=== PATIENT | male | born 1965 | race Caucasian/White ===

== ENCOUNTER 2018-03-01 12:42 | Emergency (ER) | payer MEDICAID ==
[~2018-03-01] VITALS: Ht 591.1 cm; Wt 84.0 kg
[~2018-03-01 12:42] MED LIST: AMIO200T57 PO; LABE100T PO; NICO-687 TD; NO HOME MEDS
[2018-03-01 13:14] LABS: BASOPHILS # (AUTO) 0.1 X10'3 (0-0.2); BASOPHILS % (AUTO) 0.4 % (0-1); EOSINOPHILS # (AUTO) 0.4 X10'3 (0-0.9); EOSINOPHILS % (AUTO) 2.4 % (0-6); HEMATOCRIT 29.7 % (42.0-52.0); LYMPHOCYTES # (AUTO) 1.5 X10'3 (1.1-4.8); LYMPHOCYTES % (AUTO) 8.8 % (21-51); MEAN CORPUSCULAR HEMOGLOBIN 31.2 PG (27.0-31.0); MEAN CORPUSCULAR HGB CONC 33.7 % (33.0-36.5); MEAN CORPUSCULAR VOLUME 92.4 FL (78-98); MEAN PLATELET VOLUME 6.9 FL (7.4-10.4); MONOCYTES # (AUTO) 1.7 X10'3 (0-0.9); MONOCYTES % (AUTO) 9.6 % (2-12); NEUTROPHILS # (AUTO) 13.6 X10'3 (1.8-7.7); NEUTROPHILS % (AUTO) 78.8 % (42-75); PLATELET COUNT 278 X10'3 (140-440); RED BLOOD COUNT 3.22 X10'6 (4.70-6.10); RED CELL DISTRIBUTION WIDTH 16.1 % (11.5-14.5); WHITE BLOOD COUNT 17.3 X10'3 (4.5-11.0)
[2018-03-01] MEDS ORDERED: ipratropium/albuterol 3ml nebule NEB ONE (13:20)
[2018-03-01] MEDS ORDERED: predniSONE 20 mg tablet PO ONE (13:25)
[2018-03-01 13:26] LABS: INR 0.9 INR; PARTIAL THROMBOPLASTIN TIME 26 SECONDS (22-32)
[2018-03-01 13:33] LABS: ALANINE AMINOTRANSFERASE 153 U/L (12-78); ALBUMIN 2.5 G/DL (3.4-5.0); ALBUMIN/GLOBULIN RATIO 0.7 (1.1-1.5); ALKALINE PHOSPHATASE 89 IU/L (46-116); ANION GAP 5 (8-16); ASPARTATE AMINO TRANSFERASE 58 U/L (10-37); BILIRUBIN,TOTAL 0.3 MG/DL (0.1-1.0); BLOOD UREA NITROGEN 15 MG/DL (7-18); BUN/CREATININE RATIO 13.2 (5.4-32.0); CALCIUM 9.2 MG/DL (8.5-10.1); CHLORIDE 102 MMOL/L (99-107); CREATININE 1.14 MG/DL (0.60-1.10); GLUCOSE 113 MG/DL (70-104); POTASSIUM 4.1 MMOL/L (3.5-5.1); SODIUM 135 MMOL/L (135-145); TOTAL CARBON DIOXIDE 27.8 MMOL/L (24-32); eGFR 67 ML/MIN
[2018-03-01] MEDS ORDERED: ALBU8.5H8 IH (13:42)
[2018-03-01] MEDS ORDERED: PRED20TA PO (13:42)
[2018-03-01] MEDS ORDERED: DOXY100C43 PO (13:42)
[2018-03-01] MEDS ORDERED: LIDOcaine Viscous 15ml cup PO ONE (13:45)
[2018-03-01] MEDS ORDERED: mag hydrox/Alum hydrox/simeth 30ml oral suspension PO ONE (13:45)
[2018-03-01] MEDS ORDERED: magnesium hydroxide 30ml (MOM) UD suspension PO ONE (13:45)
[2018-03-01 14:00] VITALS: BP 126/80
== END 2018-03-01 14:02 | disposition home or self-care (01) ==
LOC: ER 12:43
DX: J44.1 Chronic obstructive pulmonary disease with (acute) exacerbation (principal); G89.29 Other chronic pain; I10 Essential (primary) hypertension; E78.00 Pure hypercholesterolemia, unspecified; I50.9 Heart failure, unspecified; Z79.899 Other long term (current) drug therapy
CPT/HCPCS: 36415; 71045; 80053; 83880; 84484; 85025; 85610; 85730; 93005; 94640; 94760; 99285; J7512

== ENCOUNTER 2018-08-23 06:50 | Inpatient (IN) | payer MEDICAID | END 2018-08-26 09:50 | disposition home or self-care (01) | LOC: ER 06:50 → ED HOLD 08:47 → PCU 3S 14:12 ==

== ENCOUNTER 2021-07-02 09:23 | Inpatient (IN) | payer MEDICAID ==
[~2021-07-02] VITALS: Ht 167.6 cm; Wt 91.0 kg
[~2021-07-02 09:23] MED LIST changes: -AMIO200T57 PO; -LABE100T PO; -NICO-687 TD
[2021-07-02] MEDS ORDERED: diltiazem 5mg/ml 5ml inj. IV ONE (09:45)
[2021-07-02] MEDS ORDERED: furosemide 10 MG/1 ML 10ml inj IV ONE (09:45)
[2021-07-02] MEDS ORDERED: nitroGLYCERIN-Tridil 50MG/D5W 250 ML IV PRN (09:45)
[2021-07-02] MEDS ORDERED: diltiazem-NS 100mg/100ml 100 ML IV ONE (09:45)
[2021-07-02] MEDS ORDERED: AZIT-31 PO (10:14)
[2021-07-02] MEDS ORDERED: amiodarone 150mg/dext, iso-os 100 ML IV ONE (10:55)
[2021-07-02] MEDS: amiodarone/D5 360MG/200ML BAG 200 ML IV SCH ×2 (11:11→16:59)
[2021-07-02 11:20] LABS: BASOPHILS # (AUTO) 0.1 X10'3 (0-0.2); BASOPHILS % (AUTO) 0.7 % (0-1); EOSINOPHILS # (AUTO) 0.2 X10'3 (0-0.9); EOSINOPHILS % (AUTO) 1.5 % (0-6); HEMOGLOBIN 13.3 g/dl (14.0-17.9); LYMPHOCYTES # (AUTO) 1.5 X10'3 (1.1-4.8); LYMPHOCYTES % (AUTO) 13.4 % (21-51); MEAN CORPUSCULAR HEMOGLOBIN 26.8 PG (27.0-31.0); MEAN CORPUSCULAR HGB CONC 32.4 g/dL (33.0-36.5); MEAN CORPUSCULAR VOLUME 82.7 FL (78-98); MEAN PLATELET VOLUME 8.1 FL (7.4-10.4); MONOCYTES # (AUTO) 0.9 X10'3 (0-0.9); MONOCYTES % (AUTO) 7.5 % (2-12); NEUTROPHILS # (AUTO) 8.7 X10'3 (1.8-7.7); NEUTROPHILS % (AUTO) 76.9 % (42-75); PLATELET COUNT 302 X10'3 (140-440); RED BLOOD COUNT 4.95 X10'6 (4.70-6.10); RED CELL DISTRIBUTION WIDTH 18.2 % (11.5-14.5); WHITE BLOOD COUNT 11.4 X10'3 (4.5-11.0)
[2021-07-02 11:33] LABS: ALANINE AMINOTRANSFERASE 30 U/L (12-78); ALBUMIN 3.6 G/DL (3.4-5.0); ALBUMIN/GLOBULIN RATIO 0.8 (1.1-1.5); ALKALINE PHOSPHATASE 120 IU/L (46-116); ANION GAP 10 (8-16); ASPARTATE AMINO TRANSFERASE 22 U/L (10-37); BILIRUBIN,TOTAL 0.4 MG/DL (0.1-1.0); BLOOD UREA NITROGEN 29 MG/DL (7-18); BUN/CREATININE RATIO 13.4 (5.4-32.0); CALCIUM 9.9 MG/DL (8.5-10.1); CHLORIDE 105 MMOL/L (99-107); CREATININE 2.16 MG/DL (0.60-1.10); GLUCOSE 114 MG/DL (70-104); POTASSIUM 5.8 MMOL/L (3.5-5.1); SODIUM 140 MMOL/L (135-145); TOTAL CARBON DIOXIDE 25.3 MMOL/L (24-32); TOTAL PROTEIN 8.2 G/DL (6.4-8.2); eGFR 32 ML/MIN
[2021-07-02] MEDS ORDERED: dextrose 50%-water 50ml dispensing syringe IV ONE (11:50)
[2021-07-02] MEDS ORDERED: SODIUM ZIRCONIUM CYCLOSILICATE 10 GM POWD.PACK PO STA (11:50)
[2021-07-02] MEDS ORDERED: insulin regular, human U-100 3ml vial - multi-dose IV ONE (11:50)
[2021-07-02] MEDS ORDERED: calcium chloride 100 MG/1 ML inj IV ONE (11:50)
[2021-07-02 12:10] LABS: ETHANOL < 0.010 GM/DL (0.0-0.010)
[2021-07-02] MEDS ORDERED: labetalol 20mg/4ml (5mg/ml) syringe IV ONE (12:25)
[2021-07-02] MEDS ORDERED: morphine 2 MG/ML inj. syringe IV PRN ×2 (12:25)
[2021-07-02] MEDS ORDERED: magnesium hydroxide 30ml (MOM) UD suspension PO PRN (12:25)
[2021-07-02] MEDS ORDERED: HYDROcodone/acetaminophen 5mg/325mg tablet PO PRN (12:25)
[2021-07-02] MEDS ORDERED: ondansetron/PF 4mg/2ml inj IV PRN (12:25)
[2021-07-02] MEDS ORDERED: acetaminophen 325mg tablet PO PRN ×2 (12:25)
[2021-07-02] MEDS ORDERED: mag hydrox/Alum hydrox/simeth 30ml oral suspension PO PRN (12:25)
[2021-07-02] MEDS ORDERED: AMLO-708 PO (13:31)
[2021-07-02] MEDS ORDERED: FURO20TA4 PO (13:31)
[2021-07-02] MEDS ORDERED: HYDR-4069 PO (13:31)
[2021-07-02] MEDS ORDERED: ATOR40TA72 PO (13:31)
[2021-07-02] MEDS ORDERED: ESCI20TA39 PO (13:31)
[2021-07-02] MEDS ORDERED: CARV6.253 PO (13:31)
[2021-07-02] MEDS ORDERED: LEVO75TA7 PO (13:31)
[2021-07-02 13:42] LABS: URINE AMPHETAMINE SCREEN POSITIVE (Neg); URINE BARBITUATE SCREEN NEGATIVE (Neg); URINE BENZODIAZEPINES SCREEN NEGATIVE (Neg); URINE CANNABINOID SCREEN NEGATIVE (Neg); URINE COCAINE SCREEN NEGATIVE (Neg); URINE METHADONE SCREEN NEGATIVE (Neg); URINE OPIATE SCREEN NEGATIVE (Neg); URINE PHENCYCLIDINE SCREEN NEGATIVE (Neg)
[2021-07-02] MEDS: diltiazem CD 120mg capsule (once-daily) PO SCH (13:44)
[2021-07-02] MEDS: metoprolol tartrate 1mg/ml inj IV SCH ×8 (14:05→15:35)
[2021-07-02 22:06] VITALS: BP 129/99
[2021-07-03] VITALS (7 sets, daily range): BP systolic 123–170; BP diastolic 87–110
[2021-07-03] MEDS: furosemide 40mg/4ml inj IV SCH ×3 (00:15→19:08)
[2021-07-03] MEDS: amiodarone/D5 360MG/200ML BAG 200 ML IV SCH ×2 (00:15→05:07)
[2021-07-03] MEDS: docusate sod 100mg capsule PO SCH ×3 (00:15→19:06)
--- NOTE | 2021-07-03 06:30 | NUR ---
Patient in room PCU 3023. I have received report from Magalys MCDERMOTT and had the opportunity to ask questions and assume patient care.
[2021-07-03] MEDS: diltiazem CD 120mg capsule (once-daily) PO SCH (07:50)
[2021-07-03 08:06] LABS: BASOPHILS # (AUTO) 0.1 X10'3 (0-0.2); BASOPHILS % (AUTO) 0.6 % (0-1); EOSINOPHILS # (AUTO) 0.1 X10'3 (0-0.9); EOSINOPHILS % (AUTO) 0.8 % (0-6); HEMATOCRIT 37.7 % (42.0-52.0); HEMOGLOBIN 12.2 g/dl (14.0-17.9); MEAN CORPUSCULAR HGB CONC 32.4 g/dL (33.0-36.5); MEAN CORPUSCULAR VOLUME 83.3 FL (78-98); MONOCYTES # (AUTO) 0.9 X10'3 (0-0.9); MONOCYTES % (AUTO) 8.7 % (2-12); NEUTROPHILS # (AUTO) 7.8 X10'3 (1.8-7.7); NEUTROPHILS % (AUTO) 71.9 % (42-75); PLATELET COUNT 273 X10'3 (140-440); RED BLOOD COUNT 4.52 X10'6 (4.70-6.10); RED CELL DISTRIBUTION WIDTH 18.3 % (11.5-14.5); WHITE BLOOD COUNT 10.9 X10'3 (4.5-11.0)
--- NOTE | 2021-07-03 08:31 | NUR ---
PAGER ID: [phone] MESSAGE: [id number] Dax Real. Can we change metoprolol from Q15H to PRN? Di u want to keep Amiodarone drip is 1mg/min, do you want it at 0.5mg/min? heart rate 110s, BP 131/105. PCU Crystal
--- NOTE | 2021-07-03 08:45 | NUR ---
Problems reprioritized. Patient report given, questions answered & plan of care reviewed with Laila MCDERMOTT.
--- NOTE | 2021-07-03 08:45 | NUR ---
Patient in room PCU 3023. I have received report from Ladonna MCDERMOTT and had the opportunity to ask questions and assume patient care.
[2021-07-03 08:51] LABS: ALBUMIN 3.2 G/DL (3.4-5.0); ANION GAP 13 (8-16); BLOOD UREA NITROGEN 36 MG/DL (7-18); BUN/CREATININE RATIO 12.1 (5.4-32.0); CALCIUM 9.8 MG/DL (8.5-10.1); CHLORIDE 101 MMOL/L (99-107); CREATININE 2.98 MG/DL (0.60-1.10); GLUCOSE 127 MG/DL (70-104); SODIUM 137 MMOL/L (135-145); TOTAL CARBON DIOXIDE 22.9 MMOL/L (24-32); eGFR 22 ML/MIN
[2021-07-03 08:58] LABS: POTASSIUM 4.7 MMOL/L (3.5-5.1)
[2021-07-03 10:50] LABS: ALANINE AMINOTRANSFERASE 25 U/L (12-78); ALBUMIN/GLOBULIN RATIO 0.7 (1.1-1.5); ALKALINE PHOSPHATASE 111 IU/L (46-116); ASPARTATE AMINO TRANSFERASE 23 U/L (10-37); BILIRUBIN,DIRECT < 0.1 MG/DL (0-0.3); BILIRUBIN,TOTAL 0.4 MG/DL (0.1-1.0); TOTAL PROTEIN 7.6 G/DL (6.4-8.2)
[2021-07-03] MEDS ORDERED: ondansetron 4mg rapidly disintigrating tab PO PRN (11:20)
--- NOTE | 2021-07-03 13:20 | NUR ---
Patient in room PCU 3023. I have received report from Lexis MCDERMOTT and had the opportunity to ask questions and assume patient care.
--- NOTE | 2021-07-03 14:03 | NUR ---
PAGER ID: [phone] MESSAGE: Dax Real #[phone]- FYI- Pt's ECCO resulted, 10/% EF dropped from 25% on 08/23. SOB, 6Ln/c can I get RT? Thank you Mary [facility] 1132
--- NOTE | 2021-07-03 14:14 | NUR ---
PAGER ID: [phone] MESSAGE: Dax Real #23A- BP143/105, HR87,90,99,105,92,96,100, RR20, 94% 6Ln/c, T97.6 oral. Mary B 4724 U
--- NOTE | 2021-07-03 18:46 | NUR ---
paged RT x2
--- NOTE | 2021-07-03 18:48 | NUR ---
Patient in room PCU 3023. I have received report from SHARRON Hernandez and had the opportunity to ask questions and assume patient care.
--- NOTE | 2021-07-03 18:49 | NUR ---
Problems reprioritized. Patient report given, questions answered & plan of care reviewed with Fadia MCDERMOTT.
--- NOTE | 2021-07-03 18:54 | NUR ---
RT IS BUSY AND CALLED TO SAY THEY WILL GET HERE WHEN EVER THEY CAN. THIS IS THE 3RD PAGE FOR RT TREATMENT FOR THIS PT. NOC NURSE AWARE.
[2021-07-03] MEDS: amiodarone 200mg tablet PO SCH (19:06)
[2021-07-03] MEDS: carvedilol 6.25mg tablet PO SCH (19:07)
[2021-07-03] MEDS: apixaban 5mg tablet PO SCH (19:07)
[2021-07-03] MEDS: albuterol 2.5 MG/3 ML nebule NEB PRN ×2 (19:23→22:45)
[2021-07-04] VITALS (7 sets, daily range): BP systolic 93–166; BP diastolic 60–105
[2021-07-04] MEDS: albuterol 2.5 MG/3 ML nebule NEB PRN (03:00)
--- NOTE | 2021-07-04 06:31 | NUR ---
Problems reprioritized. Patient report given, questions answered & plan of care reviewed with SHARRON HERMOSILLO.
[2021-07-04 06:38] LABS: BASOPHILS # (AUTO) 0.1 X10'3 (0-0.2); BASOPHILS % (AUTO) 0.7 % (0-1); EOSINOPHILS # (AUTO) 0.1 X10'3 (0-0.9); EOSINOPHILS % (AUTO) 1.3 % (0-6); HEMATOCRIT 36.6 % (42.0-52.0); LYMPHOCYTES # (AUTO) 1.1 X10'3 (1.1-4.8); LYMPHOCYTES % (AUTO) 12.6 % (21-51); MEAN CORPUSCULAR HGB CONC 32.8 g/dL (33.0-36.5); MEAN CORPUSCULAR VOLUME 82.4 FL (78-98); MEAN PLATELET VOLUME 8.6 FL (7.4-10.4); MONOCYTES # (AUTO) 0.7 X10'3 (0-0.9); MONOCYTES % (AUTO) 8.3 % (2-12); NEUTROPHILS # (AUTO) 6.7 X10'3 (1.8-7.7); NEUTROPHILS % (AUTO) 77.1 % (42-75); PLATELET COUNT 227 X10'3 (140-440); RED BLOOD COUNT 4.44 X10'6 (4.70-6.10); RED CELL DISTRIBUTION WIDTH 18.1 % (11.5-14.5); WHITE BLOOD COUNT 8.7 X10'3 (4.5-11.0)
[2021-07-04 06:52] LABS: ANION GAP 11 (8-16); BLOOD UREA NITROGEN 35 MG/DL (7-18); BUN/CREATININE RATIO 13.2 (5.4-32.0); CALCIUM 9.4 MG/DL (8.5-10.1); CHLORIDE 98 MMOL/L (99-107); CREATININE 2.65 MG/DL (0.60-1.10); GLUCOSE 127 MG/DL (70-104); POTASSIUM 3.4 MMOL/L (3.5-5.1); SODIUM 136 MMOL/L (135-145); TOTAL CARBON DIOXIDE 26.7 MMOL/L (24-32); eGFR 25 ML/MIN
[2021-07-04] MEDS ORDERED: lisinopril 5mg tablet PO SCH (08:00)
[2021-07-04] MEDS: docusate sod 100mg capsule PO SCH ×2 (08:00→20:00)
[2021-07-04] MEDS ORDERED: magnesium 4gm in 100ml NS 100 ML IV PRN (08:15)
[2021-07-04] MEDS ORDERED: potassium Cl 20 mEq SR tablet PO PRN (08:15)
[2021-07-04] MEDS ORDERED: magnesium Cl slow-release 64mg tablet PO PRN (08:15)
[2021-07-04] MEDS ORDERED: magnesium 2GM in 50ml NS 50 ML IV PRN (08:15)
[2021-07-04] MEDS ORDERED: potassium CL 10mEq/100ml bag 100 ML IV PRN (08:15)
[2021-07-04] MEDS: apixaban 5mg tablet PO SCH ×2 (08:45→19:46)
[2021-07-04] MEDS: amiodarone 200mg tablet PO SCH ×2 (08:45→19:46)
[2021-07-04] MEDS: diltiazem CD 120mg capsule (once-daily) PO SCH (08:46)
[2021-07-04] MEDS: spironolactone 25 MG tablet PO SCH (08:46)
[2021-07-04] MEDS: furosemide 40mg/4ml inj IV SCH ×2 (08:46→20:00)
[2021-07-04] MEDS: carvedilol 6.25mg tablet PO SCH ×2 (08:47→20:00)
[2021-07-04] MEDS: potassium Cl 20 mEq SR tablet PO PRN ×3 (08:47→16:18)
[2021-07-04] MEDS: lisinopril 5mg tablet PO SCH (08:48)
[2021-07-04 10:00] LABS: MAGNESIUM 1.9 MG/DL (1.5-2.4); POTASSIUM 3.4 MMOL/L (3.5-5.1)
--- NOTE | 2021-07-04 12:19 | NUR ---
Paged Dr. Oh regarding med PAGER ID: [phone] MESSAGE: [id number] Dax Real. Patient takes escitalopram 20mg daily at home. U Crystal
[2021-07-04] MEDS: ESCITALOPRAM OXALATE 5 MG TABLET PO SCH (16:18)
[2021-07-04] MEDS: atorvastatin 20mg tablet PO SCH (16:18)
--- NOTE | 2021-07-04 17:27 | NUR ---
Paged Dr. Oh regarding rhythm PAGER ID: [phone] MESSAGE: [id number] Dax Real. While asleep patient went into junctional rhythm for 10 seconds, had a 3 second pause, went back into sinus rhythm. Asymptomatic. PCU Crystal
--- NOTE | 2021-07-04 18:32 | NUR ---
Problems reprioritized. Patient report given, questions answered & plan of care reviewed with Fadia MCDERMOTT.
--- NOTE | 2021-07-04 18:40 | NUR ---
Patient in room PCU 3023. I have received report from SHARRON Dougherty and had the opportunity to ask questions and assume patient care.
[2021-07-04] MEDS: K and/or MAG REPLACEMENT MC SCH (20:00)
[2021-07-05] VITALS (7 sets, daily range): BP systolic 113–137; BP diastolic 70–87
--- NOTE | 2021-07-05 06:04 | NUR ---
Problems reprioritized. Patient report given, questions answered & plan of care reviewed with SHARRON Dougehrty.
--- NOTE | 2021-07-05 06:24 | NUR ---
Patient in room PCU 3023. I have received report from Fadia MCDERMOTT and had the opportunity to ask questions and assume patient care.
[2021-07-05 06:39] LABS: BASOPHILS % (AUTO) 0.5 % (0-1); EOSINOPHILS # (AUTO) 0.2 X10'3 (0-0.9); HEMATOCRIT 36.2 % (42.0-52.0); HEMOGLOBIN 11.7 g/dl (14.0-17.9); LYMPHOCYTES # (AUTO) 1.1 X10'3 (1.1-4.8); LYMPHOCYTES % (AUTO) 16.6 % (21-51); MEAN CORPUSCULAR HEMOGLOBIN 26.9 PG (27.0-31.0); MEAN CORPUSCULAR HGB CONC 32.3 g/dL (33.0-36.5); MEAN CORPUSCULAR VOLUME 83.3 FL (78-98); MEAN PLATELET VOLUME 8.6 FL (7.4-10.4); MONOCYTES # (AUTO) 0.4 X10'3 (0-0.9); MONOCYTES % (AUTO) 6.5 % (2-12); NEUTROPHILS # (AUTO) 4.9 X10'3 (1.8-7.7); NEUTROPHILS % (AUTO) 73.4 % (42-75); PLATELET COUNT 224 X10'3 (140-440); RED BLOOD COUNT 4.35 X10'6 (4.70-6.10); RED CELL DISTRIBUTION WIDTH 17.9 % (11.5-14.5); WHITE BLOOD COUNT 6.7 X10'3 (4.5-11.0)
[2021-07-05 06:55] LABS: ALBUMIN 2.5 G/DL (3.4-5.0); ANION GAP 11 (8-16); BLOOD UREA NITROGEN 46 MG/DL (7-18); BUN/CREATININE RATIO 12.9 (5.4-32.0); CALCIUM 8.9 MG/DL (8.5-10.1); CHLORIDE 100 MMOL/L (99-107); CREATININE 3.56 MG/DL (0.60-1.10); GLUCOSE 222 MG/DL (70-104); POTASSIUM 3.5 MMOL/L (3.5-5.1); SODIUM 136 MMOL/L (135-145); TOTAL CARBON DIOXIDE 24.6 MMOL/L (24-32); eGFR 18 ML/MIN
[2021-07-05] MEDS: carvedilol 6.25mg tablet PO SCH ×2 (08:00→19:43)
[2021-07-05] MEDS: diltiazem CD 120mg capsule (once-daily) PO SCH (08:00)
[2021-07-05] MEDS: K and/or MAG REPLACEMENT MC SCH ×2 (08:00→20:00)
[2021-07-05] MEDS: atorvastatin 20mg tablet PO SCH (08:03)
[2021-07-05] MEDS: docusate sod 100mg capsule PO SCH ×2 (08:03→20:00)
[2021-07-05] MEDS: apixaban 5mg tablet PO SCH ×2 (08:03→19:43)
[2021-07-05] MEDS: furosemide 40mg/4ml inj IV SCH ×2 (08:03→19:43)
[2021-07-05] MEDS: spironolactone 25 MG tablet PO SCH (08:04)
[2021-07-05] MEDS: amiodarone 200mg tablet PO SCH ×2 (08:04→19:43)
[2021-07-05] MEDS: lisinopril 5mg tablet PO SCH (08:05)
[2021-07-05] MEDS: levoTHYROXINE 75mcg tablet PO SCH (08:05)
[2021-07-05] MEDS: ESCITALOPRAM OXALATE 5 MG TABLET PO SCH (08:06)
[2021-07-05 15:27] LABS: CHOLESTEROL 195 MG/DL (0-200); HDL CHOLESTEROL 39 MG/DL (35-60); LDL CHOLESTEROL 121 MG/DL (50-100); TRIGLYCERIDES 151 MG/DL (20-135)
--- NOTE | 2021-07-05 18:14 | NUR ---
Problems reprioritized. Patient report given, questions answered & plan of care reviewed with Fadia MCDERMOTT.
--- NOTE | 2021-07-05 18:15 | NUR ---
Patient in room PCU 3023. I have received report from SHARRON Pineda and had the opportunity to ask questions and assume patient care.
[2021-07-06 02:00] VITALS: BP 127/89
[2021-07-06 06:00] VITALS: BP 139/94
[2021-07-06 06:09] LABS: BASOPHILS % (AUTO) 0.6 % (0-1); EOSINOPHILS # (AUTO) 0.2 X10'3 (0-0.9); EOSINOPHILS % (AUTO) 3.1 % (0-6); HEMATOCRIT 39.6 % (42.0-52.0); HEMOGLOBIN 12.7 g/dl (14.0-17.9); LYMPHOCYTES # (AUTO) 1.3 X10'3 (1.1-4.8); MEAN CORPUSCULAR HEMOGLOBIN 26.7 PG (27.0-31.0); MEAN CORPUSCULAR HGB CONC 32.2 g/dL (33.0-36.5); MEAN CORPUSCULAR VOLUME 83.1 FL (78-98); MEAN PLATELET VOLUME 8.5 FL (7.4-10.4); MONOCYTES # (AUTO) 0.9 X10'3 (0-0.9); MONOCYTES % (AUTO) 11.5 % (2-12); NEUTROPHILS # (AUTO) 4.9 X10'3 (1.8-7.7); NEUTROPHILS % (AUTO) 66.8 % (42-75); PLATELET COUNT 289 X10'3 (140-440); RED BLOOD COUNT 4.77 X10'6 (4.70-6.10); WHITE BLOOD COUNT 7.4 X10'3 (4.5-11.0)
[2021-07-06 06:30] LABS: ALBUMIN 2.7 G/DL (3.4-5.0); ANION GAP 7 (8-16); BLOOD UREA NITROGEN 42 MG/DL (7-18); CALCIUM 9.8 MG/DL (8.5-10.1); CHLORIDE 104 MMOL/L (99-107); CREATININE 3.01 MG/DL (0.60-1.10); GLUCOSE 113 MG/DL (70-104); POTASSIUM 5.1 MMOL/L (3.5-5.1); SODIUM 142 MMOL/L (135-145); TOTAL CARBON DIOXIDE 30.6 MMOL/L (24-32); eGFR 22 ML/MIN
--- NOTE | 2021-07-06 06:36 | NUR ---
Problems reprioritized. Patient report given, questions answered & plan of care reviewed with SHARRON Fragoso.
[2021-07-06] MEDS: furosemide 40mg/4ml inj IV SCH ×2 (08:01→20:59)
[2021-07-06] MEDS: carvedilol 6.25mg tablet PO SCH ×2 (08:02→20:59)
[2021-07-06] MEDS: spironolactone 25 MG tablet PO SCH (08:02)
[2021-07-06] MEDS: lisinopril 5mg tablet PO SCH (08:02)
[2021-07-06] MEDS: amiodarone 200mg tablet PO SCH ×2 (08:02→20:59)
[2021-07-06] MEDS: docusate sod 100mg capsule PO SCH ×2 (08:02→20:58)
[2021-07-06] MEDS: apixaban 5mg tablet PO SCH (08:02)
[2021-07-06] MEDS: ESCITALOPRAM OXALATE 5 MG TABLET PO SCH (08:03)
[2021-07-06] MEDS: atorvastatin 20mg tablet PO SCH (08:03)
[2021-07-06] MEDS: levoTHYROXINE 75mcg tablet PO SCH (08:03)
[2021-07-06] MEDS: K and/or MAG REPLACEMENT MC SCH ×2 (08:04→20:00)
[2021-07-06 11:00] VITALS: BP 117/81
[2021-07-06] MEDS ORDERED: vancomycin/NS 1 GM ADD-VANTAGE 250 ML X 1 DOSE IV ONE (16:00)
[2021-07-06] MEDS ORDERED: LIDOcaine 1% w/EPI 1:100,000 30ml vial (MDV) ONE (16:32)
[2021-07-06] MEDS ORDERED: fentaNYL/PF 50MCG/1 ML 2ML syringe ONE (16:32)
[2021-07-06] MEDS ORDERED: midazolam 1 mg/ML 2ml injection ONE (16:32)
[2021-07-06] MEDS ORDERED: iohexol 350 MG/ML 50ML vial IV ONE (16:32)
[2021-07-06] MEDS ORDERED: cefazolin/dext.iso 2gm/50ml 50 ML IV ONE (17:00)
[2021-07-06 19:00] VITALS: BP 114/74
[2021-07-06 22:00] VITALS: BP 133/79
[2021-07-07 02:00] VITALS: BP 139/94
[2021-07-07 06:00] VITALS: BP 151/91
[2021-07-07 06:06] LABS: ALBUMIN 2.7 G/DL (3.4-5.0); ANION GAP 4 (8-16); BLOOD UREA NITROGEN 35 MG/DL (7-18); CALCIUM 9.6 MG/DL (8.5-10.1); CHLORIDE 105 MMOL/L (99-107); CREATININE 2.69 MG/DL (0.60-1.10); GLUCOSE 102 MG/DL (70-104); POTASSIUM 4.8 MMOL/L (3.5-5.1); SODIUM 139 MMOL/L (135-145); TOTAL CARBON DIOXIDE 29.9 MMOL/L (24-32); eGFR 25 ML/MIN
[2021-07-07 06:08] LABS: BASOPHILS # (AUTO) 0.1 X10'3 (0-0.2); BASOPHILS % (AUTO) 0.7 % (0-1); EOSINOPHILS # (AUTO) 0.2 X10'3 (0-0.9); EOSINOPHILS % (AUTO) 2.6 % (0-6); HEMATOCRIT 37.9 % (42.0-52.0); HEMOGLOBIN 12.4 g/dl (14.0-17.9); LYMPHOCYTES # (AUTO) 1.6 X10'3 (1.1-4.8); LYMPHOCYTES % (AUTO) 19.5 % (21-51); MEAN CORPUSCULAR HEMOGLOBIN 27.2 PG (27.0-31.0); MEAN CORPUSCULAR HGB CONC 32.8 g/dL (33.0-36.5); MEAN CORPUSCULAR VOLUME 83.1 FL (78-98); MEAN PLATELET VOLUME 8.2 FL (7.4-10.4); MONOCYTES # (AUTO) 0.9 X10'3 (0-0.9); MONOCYTES % (AUTO) 11.2 % (2-12); NEUTROPHILS # (AUTO) 5.4 X10'3 (1.8-7.7); PLATELET COUNT 312 X10'3 (140-440); RED BLOOD COUNT 4.56 X10'6 (4.70-6.10); RED CELL DISTRIBUTION WIDTH 17.9 % (11.5-14.5); WHITE BLOOD COUNT 8.1 X10'3 (4.5-11.0)
--- NOTE | 2021-07-07 06:20 | NUR ---
Patient in room PCU 3023. I have received report from SHARRON Finnegan and had the opportunity to ask questions and assume patient care.
--- NOTE | 2021-07-07 06:20 | NUR ---
Patient in room PCU 3023. I have received report from Sivan MCDERMOTT and had the opportunity to ask questions and assume patient care.
[2021-07-07] MEDS: furosemide 40mg/4ml inj IV SCH (08:00)
[2021-07-07] MEDS: K and/or MAG REPLACEMENT MC SCH (08:00)
[2021-07-07] MEDS: docusate sod 100mg capsule PO SCH (08:00)
[2021-07-07] MEDS: carvedilol 6.25mg tablet PO SCH (08:00)
[2021-07-07] MEDS: amiodarone 200mg tablet PO SCH (08:48)
[2021-07-07] MEDS: ESCITALOPRAM OXALATE 5 MG TABLET PO SCH (08:48)
[2021-07-07] MEDS: levoTHYROXINE 75mcg tablet PO SCH (08:49)
[2021-07-07] MEDS: spironolactone 25 MG tablet PO SCH (08:49)
[2021-07-07] MEDS: atorvastatin 20mg tablet PO SCH (08:50)
[2021-07-07] MEDS ORDERED: FURO40TA4 PO (08:51)
[2021-07-07] MEDS: lisinopril 5mg tablet PO SCH (08:51)
[2021-07-07] MEDS ORDERED: AMIO200T67 PO (08:51)
[2021-07-07] MEDS ORDERED: LISI5TAB22 PO (08:51)
--- NOTE | 2021-07-07 10:18 | NUR ---
O2 Sat at rest on room air:_94__% If below 89%: Recovery O2 Sat at rest on ___LPM:___%:___% via (mask/nasal cannula, etc..) No further documentation is necessary. If O2 Sat did not drop below 89% on room air,ambulate patient on room air. O2 Sat while ambulating on room air:__96_% Recovery O2 Sat while ambulating on ___LPM:___% No further documentation is necessary. If patient does not drop below 89% while ambulating, he/she does not qualify for home O2.
[2021-07-07] MEDS ORDERED: APIX5TAB3 PO (10:48)
[2021-07-07] MEDS ORDERED: SPIR25TA PO (10:50)
[2021-07-07 11:00] VITALS: BP 142/92
--- NOTE | 2021-07-07 12:20 | NUR ---
Pt DC'd home with family. Pt alert and oriented and vitals WNL upon DC. Per Dr. Oh; Pt is stable for DC. IV removed, canula intact. Tele-box removed and returned to tele-tech. DC paperwork printed out and gone over with Pt. Allowed Pt to ask questions concerning DC and then answered them. New prescriptions called into [facility] in [place]. Pt educated on the need to constantly wear the life vest and to only take it off when they shower. Pt stated that he will wear the life vest until told not to by a provider. Pt has a follow up appt with Dr. Colon on Sunday07/12/21 at 1645. Pt's belongings gathered and sent with Pt. Pt's home medications retrieved from pharmacy and given back to Pt. Pt wheeled down to [facility] in wheel chair, where he left in private car with family for home.
--- NOTE | 2021-07-07 12:20 | NUR ---
[employer] documentation: I have reviewed and agree with all interventions, assessments performed and documented by Severino MCDERMOTT.
--- NOTE | 2021-07-07 12:22 | NUR ---
Initial: Pt admitted for acute hypoxemic respiratory failure secondary to decompensated heart failure per EMR. Pt currently on Heart Healthy diet w/ low PO intake, avg 37% x 11 meals which meets 57% of est energy needs and 63% of est protein needs. Pt w/ hx of throat surgery secondary to cancer though pt denies any chewing/swallowing difficulty. Pt open to trying ONS to help meet needs, RD recommends Ensure Enlive BID BD pending MD approval. LBM 07/04 receiving routine colace. Will continue to monitor. Recs: 1. Continue Heart Healthy diet as tolerated 2. Ensure Enlive BID BD; pending MD verification 3. Bowel care per rx 4. Weekly wts Addendum: 07/07/21 at [address] Amended: Links added.
[2021-07-07] MEDS ORDERED: lactose-reduced food (Ensure Enlive) - 237ml bottle PO SCH (17:30)
== END 2021-07-07 12:35 | disposition home or self-care (01) | DRG 201 ==
LOC: ER 09:24 → ED HOLD 12:26 → UNDOADMIN 12:26 → EDBEDREQ 20:15 → PCU 3S 22:10
PROVIDERS: ADMIT Internal Medicine; ATTEND Internal Medicine
DX: I48.0 Paroxysmal atrial fibrillation (principal); J96.01 Acute respiratory failure with hypoxia; I21.A1 Myocardial infarction type 2; I50.23 Acute on chronic systolic (congestive) heart failure; I42.9 Cardiomyopathy, unspecified; N17.9 Acute kidney failure, unspecified; I49.5 Sick sinus syndrome; F32.A Depression, unspecified; I13.0 Hypertensive heart and chronic kidney disease with heart failure and stage 1 through stage 4 chronic kidney disease, or unspecified chronic kidney disease; E03.9 Hypothyroidism, unspecified; E87.5 Hyperkalemia; E87.6 Hypokalemia; J44.9 Chronic obstructive pulmonary disease, unspecified; N18.30 Chronic kidney disease, stage 3 unspecified; N27.0 Small kidney, unilateral; E78.00 Pure hypercholesterolemia, unspecified; Z20.822 Contact with and (suspected) exposure to COVID-19; G89.29 Other chronic pain; F15.90 Other stimulant use, unspecified, uncomplicated; I34.0 Nonrheumatic mitral (valve) insufficiency; Z87.891 Personal history of nicotine dependence; Z79.899 Other long term (current) drug therapy; Z99.81 Dependence on supplemental oxygen; Z89.512 Acquired absence of left leg below knee; Z85.89 Personal history of malignant neoplasm of other organs and systems
CPT/HCPCS: 36415; 71045; 76770; 80048; 80053; 80061; 80076; 80202; 80305; 80320; 83735; 83880; 84132; 84439; 84443; 84484; 85025; 87070; 87081; 87635; 93005; 93306; 94640; 94667; 94760; 96365; 96367; 96368; 96375; 99285; G0378; J0282; J0690; J1815; J1940; J2250; J3010; J3370; J3490; Q9967

== ENCOUNTER 2021-10-14 04:58 | Inpatient (IN) | payer MEDICAID ==
[~2021-10-14] VITALS: Ht 172.7 cm; Wt 85.0 kg
[2021-10-14] VITALS (16 sets, daily range): BP systolic 121–166; BP diastolic 69–114
[~2021-10-14 04:58] MED LIST changes: +AMIO200T67 PO; +APIX5TAB3 PO; +ATOR40TA72 PO; +ESCI20TA39 PO; +LEVO75TA7 PO; +LISI5TAB22 PO; -NO HOME MEDS; +SPIR25TA PO
[2021-10-14] MEDS ORDERED: metoprolol tartrate 1mg/ml inj IV ONE (05:00)
[2021-10-14] MEDS ORDERED: amiodarone 150mg/dext, iso-os 100 ML IV ONE (05:15)
[2021-10-14 05:30] LABS: BASOPHILS # (AUTO) 0.1 X10'3 (0-0.2); BASOPHILS % (AUTO) 0.7 % (0-1); EOSINOPHILS # (AUTO) 0.2 X10'3 (0-0.9); EOSINOPHILS % (AUTO) 2.1 % (0-6); HEMATOCRIT 40.9 % (42.0-52.0); HEMOGLOBIN 13.6 g/dl (14.0-17.9); LYMPHOCYTES # (AUTO) 2.6 X10'3 (1.1-4.8); LYMPHOCYTES % (AUTO) 22.9 % (21-51); MEAN CORPUSCULAR HEMOGLOBIN 29.5 PG (27.0-31.0); MEAN CORPUSCULAR HGB CONC 33.3 g/dL (33.0-36.5); MEAN CORPUSCULAR VOLUME 88.5 FL (78-98); MONOCYTES # (AUTO) 0.9 X10'3 (0-0.9); MONOCYTES % (AUTO) 7.6 % (2-12); NEUTROPHILS # (AUTO) 7.7 X10'3 (1.8-7.7); NEUTROPHILS % (AUTO) 66.7 % (42-75); PLATELET COUNT 265 X10'3 (140-440); RED BLOOD COUNT 4.62 X10'6 (4.70-6.10); RED CELL DISTRIBUTION WIDTH 17.8 % (11.5-14.5); WHITE BLOOD COUNT 11.5 X10'3 (4.5-11.0)
[2021-10-14 05:40] LABS: APTT 24 SECONDS (22-32)
[2021-10-14] MEDS: nitroGLYCERIN-Tridil 50MG/D5W 250 ML IV PRN ×3 (05:44→07:49)
[2021-10-14 05:49] LABS: ALANINE AMINOTRANSFERASE 22 U/L (12-78); ALBUMIN 3.2 G/DL (3.4-5.0); ALBUMIN/GLOBULIN RATIO 0.7 (1.1-1.5); ALKALINE PHOSPHATASE 123 IU/L (46-116); ANION GAP 8 (8-16); ASPARTATE AMINO TRANSFERASE 25 U/L (10-37); BILIRUBIN,TOTAL 0.6 MG/DL (0.1-1.0); BLOOD UREA NITROGEN 26 MG/DL (7-18); BUN/CREATININE RATIO 12.6 (5.4-32.0); C-REACTIVE PROTEIN 0.88 MG/DL (0.0-0.5); CALCIUM 9.5 MG/DL (8.5-10.1); CHLORIDE 107 MMOL/L (99-107); CREATININE 2.07 MG/DL (0.60-1.10); GLUCOSE 160 MG/DL (70-104); MAGNESIUM 2.2 MG/DL (1.5-2.4); SODIUM 143 MMOL/L (135-145); TOTAL CARBON DIOXIDE 27.8 MMOL/L (24-32); TOTAL PROTEIN 7.5 G/DL (6.4-8.2); eGFR 33 ML/MIN
[2021-10-14 06:02] LABS: POTASSIUM 4.5 MMOL/L (3.5-5.1)
[2021-10-14 06:03] LABS: ETHANOL < 0.010 GM/DL (0.0-0.010)
[2021-10-14] MEDS ORDERED: heparin 25,000 UNIT/250ml bag 250 ML IV SCH (06:20)
[2021-10-14] MEDS ORDERED: heparin 10,000 units/1 ML INJ IV ONE ×2 (06:20→06:25)
[2021-10-14] MEDS ORDERED: aspirin 81mg tab.chew PO ONE (06:20)
[2021-10-14] MEDS ORDERED: iohexol 350MG/ML 100ml bottle IV ONE (06:29)
--- NOTE | 2021-10-14 06:35 | NUR ---
Report given to Yu
--- NOTE | 2021-10-14 07:13 | NUR ---
NITRO INCREASED TO 20MCG/MIN,DR GUPTA AT BEDSIDE.BP STILL ELEVATED.180/128.NO CP.
[2021-10-14] MEDS ORDERED: lisinopril 10 MG tablet PO ONE (07:15)
--- NOTE | 2021-10-14 07:51 | NUR ---
NITRO DRIP INCREASED TO 25MCG/MIN.
[2021-10-14 07:54] LABS: URINE AMPHETAMINE SCREEN POSITIVE (Neg); URINE BARBITUATE SCREEN NEGATIVE (Neg); URINE BENZODIAZEPINES SCREEN NEGATIVE (Neg); URINE CANNABINOID SCREEN POSITIVE (Neg); URINE COCAINE SCREEN NEGATIVE (Neg); URINE METHADONE SCREEN NEGATIVE (Neg); URINE OPIATE SCREEN NEGATIVE (Neg); URINE PHENCYCLIDINE SCREEN NEGATIVE (Neg)
[2021-10-14 07:57] LABS: CLARITY,URINE CLEAR (Clear); COLOR,URINE YELLOW (Yellow); GLUCOSE, URINE NEGATIVE (Neg); KETONES,URINE NEGATIVE (Neg); LEUKOCYTE ESTERASE ,URINE NEGATIVE (Neg); NITRITES, URINE NEGATIVE (Neg); OCCULT BLOOD,URINE TRACE-INTACT (Neg); PROTEIN,URINE >=300 mg/dl (Neg); UA COLLECTION TYPE CLN CATCH MIDSTREAM; UROBILINOGEN,URINE 0.2 E.U/dL (0.2-1.0)
[2021-10-14 08:03] LABS: BACTERIA,URINE FEW /HPF (Neg); MUCUS STRANDS FEW /LPF (Neg); RBC,URINE 0-2 /HPF (0-2); SQUAMOUS EPITHELIAL CELL,UR FEW /LPF (FEW)
[2021-10-14 08:04] LABS: COARSE GRANULAR CAST 0-3 /LPF (NEGATIVE); FINE GRANULAR CAST 0-3 /LPF (NEGATIVE)
--- NOTE | 2021-10-14 08:09 | NUR ---
Nitro drip increased to 30mcg/min. VS 185/130, HR 71, 99%. No chest pain.
[2021-10-14] MEDS: niCARDipine-NS 40mg/200ml IVPB IV SCH ×2 (11:20→19:20)
[2021-10-14] MEDS ORDERED: heparin, porcine 5000 units/ml vial SQ SCH (12:00)
[2021-10-14] MEDS ORDERED: APIX5TAB3 PO (13:00)
[2021-10-14] MEDS ORDERED: LISI20TA28 PO (13:00)
[2021-10-14] MEDS ORDERED: SPIR25TA5 PO (13:00)
[2021-10-14] MEDS ORDERED: ESCI20TA39 PO (13:00)
[2021-10-14] MEDS ORDERED: AMIO200T27 PO (13:00)
[2021-10-14] MEDS ORDERED: ATOR40TA71 PO (13:00)
[2021-10-14] MEDS ORDERED: LEVO75TA7 PO (13:00)
[2021-10-14 14:26] LABS: ALANINE AMINOTRANSFERASE 19 U/L (12-78); ALBUMIN/GLOBULIN RATIO 0.8 (1.1-1.5); ALKALINE PHOSPHATASE 112 IU/L (46-116); ASPARTATE AMINO TRANSFERASE 17 U/L (10-37); BILIRUBIN,DIRECT 0.1 MG/DL (0-0.3); BILIRUBIN,TOTAL 0.5 MG/DL (0.1-1.0); TOTAL PROTEIN 6.8 G/DL (6.4-8.2)
[2021-10-14] MEDS: lisinopril 20mg tablet PO SCH (15:09)
[2021-10-14] MEDS: ESCITALOPRAM OXALATE 5 MG TABLET PO SCH (15:09)
[2021-10-14] MEDS: spironolactone 25 MG tablet PO SCH (15:10)
[2021-10-14] MEDS: amiodarone 200mg tablet PO SCH ×2 (15:11→19:02)
[2021-10-14] MEDS: levoTHYROXINE 75mcg tablet PO SCH (15:11)
[2021-10-14] MEDS: atorvastatin 20mg tablet PO SCH (15:12)
[2021-10-14] MEDS: apixaban 5mg tablet PO SCH ×2 (15:13→19:03)
[2021-10-14] MEDS ORDERED: morphine 2 MG/ML inj. syringe IV PRN ×2 (17:30→18:05)
[2021-10-14] MEDS ORDERED: acetaminophen 325mg tablet PO PRN ×3 (17:30→18:05)
[2021-10-14] MEDS: hydrALAZINE 20mg/ml inj. IV PRN (18:03)
[2021-10-14] MEDS ORDERED: magnesium hydroxide 30ml (MOM) UD suspension PO PRN (18:05)
[2021-10-14] MEDS ORDERED: morphine 4 MG/ML inj SYRINge IV PRN (18:05)
[2021-10-14] MEDS ORDERED: potassium Cl 20 mEq SR tablet PO PRN ×2 (18:05)
--- NOTE | 2021-10-14 21:23 | NUR ---
The patients daughter Kevyn called earlier and asked group underwriter to deliver a message, message delivered at this time and the patient said he would call her. Will continue to monitor the patient. The patient turns himself while in bed noted and encouraged.
[2021-10-15] VITALS (15 sets, daily range): BP systolic 105–158; BP diastolic 54–105
[2021-10-15] MEDS: hydrALAZINE 20mg/ml inj. IV PRN ×2 (01:55→14:10)
[2021-10-15] MEDS: niCARDipine-NS 40mg/200ml IVPB IV SCH (03:20)
--- NOTE | 2021-10-15 05:31 | NUR ---
Patient resting in bed at this time after experiencing a nose bleed. public relations writer assisted with helping the patient with the bleeding until it stopped. Patient encouraged to let staff know if it occurs again. O2 off and patients sats greater than 92%. Will continue to monitor.
--- NOTE | 2021-10-15 06:00 | NUR ---
Problems reprioritized. Patient report given, questions answered & plan of care reviewed with Brandin Weathers RN.
[2021-10-15 06:41] LABS: BASOPHILS # (AUTO) 0.1 X10'3 (0-0.2); BASOPHILS % (AUTO) 0.9 % (0-1); EOSINOPHILS # (AUTO) 0.2 X10'3 (0-0.9); EOSINOPHILS % (AUTO) 1.8 % (0-6); HEMATOCRIT 40.5 % (42.0-52.0); HEMOGLOBIN 13.3 g/dl (14.0-17.9); LYMPHOCYTES # (AUTO) 1.4 X10'3 (1.1-4.8); MEAN CORPUSCULAR HEMOGLOBIN 29.3 PG (27.0-31.0); MEAN CORPUSCULAR HGB CONC 32.9 g/dL (33.0-36.5); MEAN CORPUSCULAR VOLUME 89.1 FL (78-98); MEAN PLATELET VOLUME 8.7 FL (7.4-10.4); MONOCYTES # (AUTO) 0.7 X10'3 (0-0.9); MONOCYTES % (AUTO) 7.9 % (2-12); NEUTROPHILS # (AUTO) 6.7 X10'3 (1.8-7.7); NEUTROPHILS % (AUTO) 74.4 % (42-75); PLATELET COUNT 235 X10'3 (140-440); RED BLOOD COUNT 4.54 X10'6 (4.70-6.10); RED CELL DISTRIBUTION WIDTH 17.7 % (11.5-14.5); WHITE BLOOD COUNT 9.1 X10'3 (4.5-11.0)
[2021-10-15 07:08] LABS: ALANINE AMINOTRANSFERASE 18 U/L (12-78); ALBUMIN 3.2 G/DL (3.4-5.0); ALBUMIN/GLOBULIN RATIO 0.8 (1.1-1.5); ALKALINE PHOSPHATASE 123 IU/L (46-116); ANION GAP 8 (8-16); ASPARTATE AMINO TRANSFERASE 18 U/L (10-37); BILIRUBIN,TOTAL 0.9 MG/DL (0.1-1.0); BLOOD UREA NITROGEN 25 MG/DL (7-18); BUN/CREATININE RATIO 13.2 (5.4-32.0); CALCIUM 10.1 MG/DL (8.5-10.1); CHLORIDE 103 MMOL/L (99-107); CREATININE 1.89 MG/DL (0.60-1.10); GLUCOSE 108 MG/DL (70-104); MAGNESIUM 2.3 MG/DL (1.5-2.4); PHOSPHORUS 2.8 MG/DL (2.3-4.5); POTASSIUM 4.5 MMOL/L (3.5-5.1); SODIUM 135 MMOL/L (135-145); TOTAL CARBON DIOXIDE 24.4 MMOL/L (24-32); TOTAL PROTEIN 7.3 G/DL (6.4-8.2); eGFR 37 ML/MIN
[2021-10-15] MEDS: atorvastatin 20mg tablet PO SCH (07:45)
[2021-10-15] MEDS: ESCITALOPRAM OXALATE 5 MG TABLET PO SCH (07:45)
[2021-10-15] MEDS: spironolactone 25 MG tablet PO SCH (07:46)
[2021-10-15] MEDS: apixaban 5mg tablet PO SCH ×2 (07:47→19:53)
[2021-10-15] MEDS: lisinopril 20mg tablet PO SCH (07:47)
[2021-10-15] MEDS: levoTHYROXINE 75mcg tablet PO SCH (07:47)
[2021-10-15] MEDS: amiodarone 200mg tablet PO SCH (07:48)
[2021-10-15] MEDS ORDERED: apixaban 5mg tablet PO SCH (08:00)
[2021-10-15] MEDS ORDERED: furosemide 40mg/4ml inj IV ONE (14:20)
--- NOTE | 2021-10-15 15:46 | NUR ---
Patient arrived to unit via w/c, awake alert and verbally responsive no distress noted, on RA. denies pain or discomfort at time, Call light within reach, safety measure maintain. Addendum: 10/15/21 at 1702 by Armando Chapa RN Patient in bed AXOX3 no distress noted. Lung sound clear to auscultate all llobes bilateral. sinus rhythm on tele mmonitor. abd soft non tender, bowel sound active all lobes, last BM 10/15/21. Skin intact, X2 PIV to LUE. Denies pain or any discomfort at time, call light within reach, safety measure in place.
[2021-10-15] MEDS: K and/or MAG REPLACEMENT MC SCH (16:00)
[2021-10-15] MEDS: hyDRALAzine 10mg tablet PO SCH ×2 (16:16→23:21)
--- NOTE | 2021-10-15 18:50 | NUR ---
Problems reprioritized. Patient report given to Yohana MCDERMOTT, questions answered & plan of care reviewed with .
[2021-10-15] MEDS: carVEDilol 12.5mg tablet PO SCH (19:53)
[2021-10-16 06:00] VITALS: BP 121/85
--- NOTE | 2021-10-16 07:08 | NUR ---
PAGER ID: [phone] MESSAGE: [id number] Dax Real- on operation shift supervisor HR dropped to 20-30s with a 5 second pause. Ramona [phone]
[2021-10-16] MEDS: amiodarone 200mg tablet PO SCH (08:00)
[2021-10-16] MEDS: carVEDilol 12.5mg tablet PO SCH (08:00)
[2021-10-16] MEDS: K and/or MAG REPLACEMENT MC SCH (08:00)
--- NOTE | 2021-10-16 09:02 | NUR ---
PAGER ID: [phone] MESSAGE: [id number] Dax Real- OK to give BP medications? Pt had 5 second heart pause and decreased heart rate in 20-30s non sustained. Ramona [phone]
--- NOTE | 2021-10-16 09:04 | NUR ---
Dr. Holman called back stating to hold Coreg and Amiodarone
[2021-10-16] MEDS: apixaban 5mg tablet PO SCH ×2 (09:13→19:33)
[2021-10-16] MEDS: lisinopril 20mg tablet PO SCH (09:14)
[2021-10-16] MEDS: spironolactone 25 MG tablet PO SCH (09:14)
[2021-10-16] MEDS: levoTHYROXINE 75mcg tablet PO SCH (09:14)
[2021-10-16] MEDS: atorvastatin 20mg tablet PO SCH (09:15)
[2021-10-16] MEDS: ESCITALOPRAM OXALATE 5 MG TABLET PO SCH (09:15)
[2021-10-16] MEDS: hyDRALAzine 10mg tablet PO SCH ×3 (09:19→16:23)
[2021-10-16 11:00] VITALS: BP 143/89
--- NOTE | 2021-10-16 13:24 | NUR ---
PAGER ID: [phone] MESSAGE: [id number] Dax Real- Patient would like to talk you. Wants to go home. Ramona [phone]
[2021-10-16 15:00] VITALS: BP 120/80
[2021-10-16] MEDS ORDERED: AMIO200T27 PO (16:07)
--- NOTE | 2021-10-16 16:24 | NUR ---
Dr. Holman called stating to decrease hydralazine dose from 20mg to 10mg.
[2021-10-16] MEDS ORDERED: morphine 2 MG/ML inj. syringe IV PRN (16:50)
[2021-10-16 18:00] VITALS: BP 134/82
--- NOTE | 2021-10-16 18:35 | NUR ---
Problems reprioritized. Patient report given, questions answered & plan of care reviewed with Nimisha MCDERMOTT.
[2021-10-16] MEDS: carVEDilol 3.125mg tablet PO SCH (19:33)
[2021-10-16 22:00] VITALS: BP 108/66
[2021-10-17] VITALS (8 sets, daily range): BP systolic 105–183; BP diastolic 70–119
[2021-10-17] MEDS ORDERED: hyDRALAzine 10mg tablet PO SCH
[2021-10-17] MEDS: hyDRALAzine 10mg tablet PO SCH ×3 (00:43→15:01)
--- NOTE | 2021-10-17 06:15 | NUR ---
Problems reprioritized. Patient report given, questions answered & plan of care reviewed with SHARRON Greene.
[2021-10-17] MEDS: K and/or MAG REPLACEMENT MC SCH (08:00)
[2021-10-17] MEDS: atorvastatin 20mg tablet PO SCH (08:38)
[2021-10-17] MEDS: apixaban 5mg tablet PO SCH ×2 (08:38→19:54)
[2021-10-17] MEDS: levoTHYROXINE 75mcg tablet PO SCH (08:38)
[2021-10-17] MEDS: amiodarone 200mg tablet PO SCH ×2 (08:38→09:55)
[2021-10-17] MEDS: lisinopril 20mg tablet PO SCH (08:38)
[2021-10-17] MEDS: spironolactone 25 MG tablet PO SCH (08:39)
[2021-10-17] MEDS: carVEDilol 3.125mg tablet PO SCH ×3 (08:39→19:54)
--- NOTE | 2021-10-17 08:48 | NUR ---
PAGER ID: [phone] MESSAGE: [id number] Dax Real- HR decreased to 30s non sustained with less than 3 second pause during date night sitter. Hold amiodarone and coreg? Ramona [id number]
--- NOTE | 2021-10-17 09:48 | NUR ---
PAGER ID: [phone] MESSAGE: [id number] Dax Real- OK to give amiodarone and coreg? Ramona [id number]
[2021-10-17] MEDS: ESCITALOPRAM OXALATE 5 MG TABLET PO SCH (11:04)
--- NOTE | 2021-10-17 11:59 | NUR ---
PAGER ID: [phone] MESSAGE: [id number] Dax Real- BP 183/119 HR 76. No chest pain. Ramona Araujo Page was also sent do Jocy Dalton Addendum: 10/17/21 at 1227 by Ramona West RN Dr. Holman called back stating to call Jocy PADRON. Jocy PADRON was called and she states she will place orders.
--- NOTE | 2021-10-17 18:17 | NUR ---
Patient in room PCU 3012. I have received report from SHARRON Greene and had the opportunity to ask questions and assume patient care.
--- NOTE | 2021-10-17 18:17 | NUR ---
Problems reprioritized. Patient report given, questions answered & plan of care reviewed with Nimisha MCDERMOTT.
--- NOTE | 2021-10-17 19:49 | NUR ---
MESSAGE: sent to Dr. Holman, RE: Farhan Verduzco, in room 3012A, requesting sleeping medicine, to help him sleep. Addendum: 10/17/21 at 2000 by Nimisha Chapa RN Message sent to Dr. HOLMAN, Dr. Levy air traffic control operator, will call him on [phone].
--- NOTE | 2021-10-17 20:05 | NUR ---
Spoke with , order received for Restoril 15mg QHS PRN.
[2021-10-17] MEDS ORDERED: temazepam 15mg capsule PO PRN (20:10)
[2021-10-18 00:19] VITALS: BP 137/89
[2021-10-18] MEDS: hyDRALAzine 10mg tablet PO SCH ×2 (00:19→09:28)
[2021-10-18 02:00] VITALS: BP 135/85
[2021-10-18 06:00] VITALS: BP 141/89
[2021-10-18] MEDS: levoTHYROXINE 75mcg tablet PO SCH (07:39)
[2021-10-18 08:23] VITALS: BP 151/90
[2021-10-18] MEDS: spironolactone 25 MG tablet PO SCH (08:26)
[2021-10-18] MEDS: carVEDilol 3.125mg tablet PO SCH (08:26)
[2021-10-18] MEDS: atorvastatin 20mg tablet PO SCH (08:26)
[2021-10-18] MEDS: amiodarone 200mg tablet PO SCH (08:26)
[2021-10-18] MEDS: apixaban 5mg tablet PO SCH (08:26)
[2021-10-18] MEDS: lisinopril 20mg tablet PO SCH (08:27)
[2021-10-18] MEDS: ESCITALOPRAM OXALATE 5 MG TABLET PO SCH (08:27)
[2021-10-18] MEDS ORDERED: COR3.125T PO (10:07)
[2021-10-18 11:00] VITALS: BP 156/98
--- NOTE | 2021-10-18 11:37 | NUR ---
Student documentation: I have reviewed and agree with all interventions, assessments performed and documented by Natalya, nursing staff development coordinator.
--- NOTE | 2021-10-18 11:37 | NUR ---
Student Medication Administration: For this medication-pass time frame, all medication were reviewed, dispensed, administered and documented per hospital policy by yaquelin Hoang.
--- NOTE | 2021-10-18 13:55 | NUR ---
Discharged patient home, in stable condition, accompanied by . Discharge instructions given and pt verbalized understanding.
== END 2021-10-18 13:57 | disposition home or self-care (01) | DRG 194 ==
LOC: ER 04:59 → ED HOLD 07:23 → EDBEDREQ 07:51 → ICU 2S 08:44 → PCU 3S 10-15 15:36
PROVIDERS: ADMIT Hospitalist; ATTEND Hospitalist
PROC: B32T1ZZ Computerized Tomography (CT Scan) of Left Pulmonary Artery using Low Osmolar Contrast (ICD-10-PCS; principal; 2021-10-14)
PROC: B3201ZZ Computerized Tomography (CT Scan) of Thoracic Aorta using Low Osmolar Contrast (ICD-10-PCS; 2021-10-14)
PROC: B32S1ZZ Computerized Tomography (CT Scan) of Right Pulmonary Artery using Low Osmolar Contrast (ICD-10-PCS; 2021-10-14)
DX: I13.0 Hypertensive heart and chronic kidney disease with heart failure and stage 1 through stage 4 chronic kidney disease, or unspecified chronic kidney disease (principal); I21.A1 Myocardial infarction type 2; D68.59 Other primary thrombophilia; E88.09 Other disorders of plasma-protein metabolism, not elsewhere classified; I49.5 Sick sinus syndrome; I50.43 Acute on chronic combined systolic (congestive) and diastolic (congestive) heart failure; I42.0 Dilated cardiomyopathy; N17.9 Acute kidney failure, unspecified; I42.7 Cardiomyopathy due to drug and external agent; D72.829 Elevated white blood cell count, unspecified; E03.9 Hypothyroidism, unspecified; E78.00 Pure hypercholesterolemia, unspecified; I08.3 Combined rheumatic disorders of mitral, aortic and tricuspid valves; E78.5 Hyperlipidemia, unspecified; F15.10 Other stimulant abuse, uncomplicated; I16.1 Hypertensive emergency; I25.10 Atherosclerotic heart disease of native coronary artery without angina pectoris; I48.0 Paroxysmal atrial fibrillation; F12.90 Cannabis use, unspecified, uncomplicated; G89.29 Other chronic pain; M54.9 Dorsalgia, unspecified; J43.9 Emphysema, unspecified; N18.9 Chronic kidney disease, unspecified; Z20.822 Contact with and (suspected) exposure to COVID-19; Z79.01 Long term (current) use of anticoagulants; Z79.899 Other long term (current) drug therapy; Z87.891 Personal history of nicotine dependence; Z89.512 Acquired absence of left leg below knee; Z91.19 Patient's noncompliance with other medical treatment and regimen; Z71.51 Drug abuse counseling and surveillance of drug abuser
CPT/HCPCS: 36415; 71045; 71275; 80053; 80076; 80305; 80320; 81001; 83735; 83880; 84100; 84439; 84443; 84484; 85025; 85379; 85610; 85730; 86140; 87088; 87635; 93005; 93306; 96374; 96375; 97530; 99291; C9803; G0378; J0282; J0360; J1644; J1940; J3490; Q9967

== ENCOUNTER 2022-02-24 02:02 | Inpatient (IN) | payer MEDICAID ==
[2022-02-24] VITALS (10 sets, daily range): BP systolic 105–271; BP diastolic 63–155
[~2022-02-24] VITALS: Ht 167.6 cm; Wt 81.8 kg
[~2022-02-24 02:02] MED LIST changes: +AMIO200T27 PO; -AMIO200T67 PO; +ATOR40TA71 PO; -ATOR40TA72 PO; +COR3.125T PO; +LISI20TA28 PO; -LISI5TAB22 PO; -SPIR25TA PO; +SPIR25TA5 PO
[2022-02-24] MEDS ORDERED: normal saline 1000ML IV soln IVB STA (02:24)
[2022-02-24] MEDS ORDERED: tranexamic acid 100mg/ml inj. IV ONE (02:25)
[2022-02-24] MEDS ORDERED: epiNEPHrine 1 mg/ml inj SQ ONE (02:25)
[2022-02-24] MEDS ORDERED: methylPREDNISolone sod succ 125mg/2ml vial IV ONE (02:25)
[2022-02-24] MEDS ORDERED: diphenhydrAMINE 50 mg/ml inj IV ONE (02:25)
[2022-02-24] MEDS ORDERED: famotidine/PF 10 mg/ml inj IV ONE (02:25)
[2022-02-24] MEDS ORDERED: triamcinolone acetonide 40mg/ml inj IM ONE ×2 (02:25→02:30)
[2022-02-24] MEDS ORDERED: LORazepam 2 mg/ml vial IV ONE (02:30)
--- NOTE | 2022-02-24 03:42 | NUR ---
CALLED MEDICARE NURSE @[phone] LEFT VOICE MAIL, CALLED ICU TO CONFIRM CORRECT INTESIVIST, PER DR. HERNANDEZ. WILL CONTINUE CALLING IN REGARDS TO PT PER DR. HERNANDEZ
[2022-02-24 03:52] LABS: BASOPHILS # (AUTO) 0.1 X10'3 (0-0.2); BASOPHILS % (AUTO) 0.8 % (0-1); EOSINOPHILS # (AUTO) 0.3 X10'3 (0-0.9); HEMATOCRIT 40.6 % (42.0-52.0); HEMOGLOBIN 13.4 g/dl (14.0-17.9); LYMPHOCYTES # (AUTO) 4.5 X10'3 (1.1-4.8); LYMPHOCYTES % (AUTO) 27.6 % (21-51); MEAN CORPUSCULAR HEMOGLOBIN 29.9 PG (27.0-31.0); MEAN CORPUSCULAR VOLUME 90.6 FL (78-98); MEAN PLATELET VOLUME 8.3 FL (7.4-10.4); MONOCYTES # (AUTO) 1.9 X10'3 (0-0.9); MONOCYTES % (AUTO) 11.6 % (2-12); NEUTROPHILS # (AUTO) 9.4 X10'3 (1.8-7.7); PLATELET COUNT 329 X10'3 (140-440); RED BLOOD COUNT 4.48 X10'6 (4.70-6.10); RED CELL DISTRIBUTION WIDTH 16.3 % (11.5-14.5); WHITE BLOOD COUNT 16.3 X10'3 (4.5-11.0)
[2022-02-24] MEDS ORDERED: rocuronium 10mg/ml inj IV ONE ×2 (04:15→08:00)
[2022-02-24] MEDS ORDERED: etomidate 2mg/ml inj. IV ONE ×2 (04:15→05:20)
[2022-02-24] MEDS ORDERED: acetaminophen 325mg tablet PO PRN (04:30)
[2022-02-24] MEDS ORDERED: ondansetron/PF 4mg/2ml inj IV PRN (04:30)
[2022-02-24] MEDS ORDERED: potassium CL 10mEq/100ml bag 100 ML IV PRN (04:30)
[2022-02-24] MEDS ORDERED: mag hydrox/Alum hydrox/simeth 30ml oral suspension PO PRN (04:30)
[2022-02-24] MEDS ORDERED: magnesium 4gm in 100ml NS 100 ML IV PRN (04:30)
[2022-02-24] MEDS ORDERED: magnesium 2GM in 50ml NS 50 ML IV PRN (04:30)
[2022-02-24] MEDS ORDERED: normal saline 1000ml 1,000 ML IV SCH (04:30)
[2022-02-24] MEDS ORDERED: magnesium hydroxide 30ml (MOM) UD suspension PO PRN (04:30)
[2022-02-24 04:40] LABS: TOTAL CELLS COUNTED 100
[2022-02-24 04:41] LABS: ANISOCYTOSIS 1+; PLATELET ESTIMATE NORMAL
--- NOTE | 2022-02-24 04:56 | NUR ---
PLEASE CALL REY AT [phone]
[2022-02-24] MEDS: midazolam 100mg in NS 100ml 100 ML IV PRN ×2 (05:36→10:41)
[2022-02-24] MEDS: FENTANYL-0.9 % NACL/PF 100 ML IV PRN ×2 (05:37→10:37)
[2022-02-24 05:57] LABS: ABG BASE EXCESS -9.4 mmol/L (-2.0-2.0); ABG HCO3 23.3 mmol/L (22.0-26.0); ABG OXYGEN SATURATION 95.8 % (94-97); ABG PCO2 (T) 84.9 mmHg (35.0-48.0); ABG PO2 (T) 106.8 mmHg (75.0-100.0); ALLEN'S TEST POSITIVE; FCOHb 0.3 % (0.0-3.9); FMetHb 0.3 % (0.0-1.5); FO2Hb 95.2 % (94-97); PATIENT TEMPERATURE 36.4; PEEP 5 cm H2O; RESPIRATORY RATE 12 b/min; TIDAL VOLUME 350 mL; TOTAL HEMOGLOBIN 15.1 G/dl (14.0-18.0)
[2022-02-24 06:17] LABS: APTT 29 SECONDS (22-32)
[2022-02-24 06:19] LABS: ALANINE AMINOTRANSFERASE 28 U/L (12-78); ALBUMIN 3.3 G/DL (3.4-5.0); ALBUMIN/GLOBULIN RATIO 0.7 (1.1-1.5); ALKALINE PHOSPHATASE 155 IU/L (46-116); ANION GAP 6 (8-16); ASPARTATE AMINO TRANSFERASE 25 U/L (10-37); BILIRUBIN,TOTAL 0.3 MG/DL (0.1-1.0); BLOOD UREA NITROGEN 37 MG/DL (7-18); BUN/CREATININE RATIO 13.2 (5.4-32.0); CALCIUM 9.5 MG/DL (8.5-10.1); CHLORIDE 106 MMOL/L (99-107); GLUCOSE 286 MG/DL (70-104); MAGNESIUM 2.1 MG/DL (1.5-2.4); SODIUM 137 MMOL/L (135-145); TOTAL CARBON DIOXIDE 25.3 MMOL/L (24-32); TOTAL PROTEIN 8.2 G/DL (6.4-8.2); TRIGLYCERIDES 210 MG/DL (20-135); eGFR 23 ML/MIN
[2022-02-24 06:21] LABS: POTASSIUM 5.4 MMOL/L (3.5-5.1)
[2022-02-24] MEDS: propofol 1000mg/100ml bottle 100 ML IV SCH ×2 (06:26→10:30)
--- NOTE | 2022-02-24 06:40 | NUR ---
[address] HERNANDEZ, RADHA RT, GUILLE RT, CHELY RN, RAUDEL RN 0458 ETOMIDATE 20MG 0459 KEYANNA 100 0500 ATTEMPTED ORAL INTUBATION, W/ GLIDESCOPE 0501 VENTILATION W/ BVM PT MANTAINING SATURATION 0510 CRICH COMPLETE W/ 6.0 ET TUBE 20CM AT NECK 0520 ETOMIDATE 20MG PER DAVID VERBAL ORDER
--- NOTE | 2022-02-24 06:58 | NUR ---
Called Dr. Alexandre made aware: patient is cric, profopol has been started but easily drops BP, and that versed is maxed out. to refer patient to ENT.
--- NOTE | 2022-02-24 07:03 | NUR ---
PROPOFOL HELD AT THIS TIME, ON VERSED 5MG/ HOUR AND FENTANYL 250MCG/HOUR.RT AT BEDSIDE.
--- NOTE | 2022-02-24 07:07 | NUR ---
BP 111/75 HR 81. WE WILL MONITOR.
[2022-02-24 07:29] LABS: ABG BASE EXCESS -7.5 mmol/L (-2.0-2.0); ABG HCO3 20.6 mmol/L (22.0-26.0); ABG OXYGEN SATURATION 98.1 % (94-97); ABG PCO2 (T) 51.9 mmHg (35.0-48.0); ABG PO2 (T) 138.5 mmHg (75.0-100.0); ALLEN'S TEST POSITIVE; FCOHb 0.1 % (0.0-3.9); FMetHb 0.2 % (0.0-1.5); FO2Hb 97.8 % (94-97); PEEP 5 cm H2O; RESPIRATORY RATE 16 b/min; TIDAL VOLUME 500 mL; TOTAL HEMOGLOBIN 14.2 G/dl (14.0-18.0)
[2022-02-24] MEDS ORDERED: etomidate 2mg/ml inj. ONE (08:00)
[2022-02-24] MEDS: K and/or MAG REPLACEMENT MC SCH ×2 (08:00→20:00)
[2022-02-24] MEDS ORDERED: sod chloride 0.9% 10ml flush syringe IV ONE (08:00)
[2022-02-24] MEDS: docusate sod 100mg capsule PO SCH ×2 (08:00→21:09)
[2022-02-24] MEDS: famotidine/PF 10 mg/ml inj IV SCH ×2 (08:11→20:00)
[2022-02-24] MEDS: methylPREDNISolone sod succ 125mg/2ml vial IV SCH ×2 (08:11→16:29)
[2022-02-24] MEDS: heparin, porcine 5000 units/ml vial SQ SCH ×2 (08:12→16:30)
--- NOTE | 2022-02-24 12:50 | NUR ---
attempted to call spouse marleen to obtain consent for ffp but unable to leave a message/voicemail is full.
--- NOTE | 2022-02-24 12:54 | NUR ---
Obtained telephone consent: ok to give plasma.
--- NOTE | 2022-02-24 13:10 | NUR ---
see down time transfusion form for ffp.
[2022-02-24] MEDS ORDERED: CARV3.122 PO (13:30)
[2022-02-24] MEDS ORDERED: AMIO200T27 PO (13:30)
--- NOTE | 2022-02-24 13:51 | NUR ---
no adverse reaction from post 15 minute plasma transfusion,remained afebrile.we will monitor.
--- NOTE | 2022-02-24 14:38 | NUR ---
ffp completed, pt tolerated well.still awaiting for inpatient room assignment.vital signs stable.
[2022-02-24 15:09] LABS: ABG BASE EXCESS -7.9 mmol/L (-2.0-2.0); ABG HCO3 17.2 mmol/L (22.0-26.0); ABG OXYGEN SATURATION 92.9 % (94-97); ABG PCO2 (T) 33.3 mmHg (35.0-48.0); ABG PO2 (T) 66.3 mmHg (75.0-100.0); ALLEN'S TEST POSITIVE; FMetHb 0.1 % (0.0-1.5); FO2Hb 92.8 % (94-97); PATIENT TEMPERATURE 36.3; PEEP 5 cm H2O; RESPIRATORY RATE 18 b/min; TIDAL VOLUME 550 mL; TOTAL HEMOGLOBIN 13.2 G/dl (14.0-18.0)
[2022-02-25 00:54] VITALS: BP 153/101
[2022-02-25] MEDS: heparin, porcine 5000 units/ml vial SQ SCH (01:03)
[2022-02-25] MEDS: methylPREDNISolone sod succ 125mg/2ml vial IV SCH (01:06)
[2022-02-25] MEDS ORDERED: piperacillin/tazo 3.375gm/50ml 50 ML IV SCH ×2 (02:00)
[2022-02-25 03:28] VITALS: BP 174/113
[2022-02-25] MEDS ORDERED: VANCOmycin 1250MG/NS 250ml Bag 250 ML IV SCH (04:00)
[2022-02-25 04:12] LABS: ABG BASE EXCESS -6.9 mmol/L (-2.0-2.0); ABG HCO3 17.6 mmol/L (22.0-26.0); ABG OXYGEN SATURATION 92.2 % (94-97); ABG PCO2 (T) 31.8 mmHg (35.0-48.0); ABG PO2 (T) 64.6 mmHg (75.0-100.0); ALLEN'S TEST POSITIVE; FCOHb 0.1 % (0.0-3.9); FMetHb 0.2 % (0.0-1.5); FO2Hb 91.9 % (94-97); PATIENT TEMPERATURE 36.6; RESPIRATORY RATE 18 b/min; TIDAL VOLUME 550 mL; TOTAL HEMOGLOBIN 13.2 G/dl (14.0-18.0)
[2022-02-25 04:14] VITALS: BP 149/97
[2022-02-25 05:59] VITALS: BP 153/92
--- NOTE | 2022-02-25 06:36 | NUR ---
PT CONTINUOUSLY COUGHING;GAGGING, AGIGTATED APPEARING. FENTANYL AND VERSED INCREASED.
[2022-02-25 06:45] LABS: BASOPHILS % (AUTO) 0.1 % (0-1); EOSINOPHILS % (AUTO) 0 % (0-6); HEMATOCRIT 37.8 % (42.0-52.0); HEMOGLOBIN 12.3 g/dl (14.0-17.9); LYMPHOCYTES # (AUTO) 1.5 X10'3 (1.1-4.8); LYMPHOCYTES % (AUTO) 8.1 % (21-51); MEAN CORPUSCULAR HGB CONC 32.6 g/dL (33.0-36.5); MEAN CORPUSCULAR VOLUME 92.1 FL (78-98); MONOCYTES # (AUTO) 0.7 X10'3 (0-0.9); MONOCYTES % (AUTO) 3.7 % (2-12); NEUTROPHILS # (AUTO) 16.8 X10'3 (1.8-7.7); NEUTROPHILS % (AUTO) 88.1 % (42-75); PLATELET COUNT 311 X10'3 (140-440); RED CELL DISTRIBUTION WIDTH 16.6 % (11.5-14.5); WHITE BLOOD COUNT 19.1 X10'3 (4.5-11.0)
[2022-02-25 07:04] LABS: ALANINE AMINOTRANSFERASE 24 U/L (12-78); ALBUMIN 3.1 G/DL (3.4-5.0); ALBUMIN/GLOBULIN RATIO 0.8 (1.1-1.5); ALKALINE PHOSPHATASE 111 IU/L (46-116); ANION GAP 12 (8-16); ASPARTATE AMINO TRANSFERASE 18 U/L (10-37); BILIRUBIN,TOTAL 0.5 MG/DL (0.1-1.0); BLOOD UREA NITROGEN 56 MG/DL (7-18); BUN/CREATININE RATIO 13.4 (5.4-32.0); CALCIUM 9.2 MG/DL (8.5-10.1); CHLORIDE 108 MMOL/L (99-107); CREATININE 4.17 MG/DL (0.60-1.10); GLUCOSE 155 MG/DL (70-104); POTASSIUM 5.2 MMOL/L (3.5-5.1); SODIUM 139 MMOL/L (135-145); TOTAL CARBON DIOXIDE 19.1 MMOL/L (24-32); TOTAL PROTEIN 7.2 G/DL (6.4-8.2); TRIGLYCERIDES 218 MG/DL (20-135); eGFR 15 ML/MIN
--- NOTE | 2022-02-25 08:00 | NUR ---
Arrived at [facility]. Wasted approx 1/2 bad of both fentanyl as well as midazolam.
== END 2022-02-25 08:46 | disposition short-term general hospital (02) | DRG 792 ==
LOC: ER 02:03 → ED HOLD 04:32
PROVIDERS: ADMIT Internal Medicine; ATTEND Family Medicine
PROC: 5A1945Z Respiratory Ventilation, 24-96 Consecutive Hours (ICD-10-PCS; principal; 2022-02-24)
PROC: 0B110F4 Bypass Trachea to Cutaneous with Tracheostomy Device, Open Approach (ICD-10-PCS; 2022-02-24)
PROC: 30233K1 Transfusion of Nonautologous Frozen Plasma into Peripheral Vein, Percutaneous Approach (ICD-10-PCS; 2022-02-24)
DX: T78.3XXA Angioneurotic edema, initial encounter (principal); I42.9 Cardiomyopathy, unspecified; I50.9 Heart failure, unspecified; I11.0 Hypertensive heart disease with heart failure; Z20.822 Contact with and (suspected) exposure to COVID-19; E78.00 Pure hypercholesterolemia, unspecified; T46.4X5A Adverse effect of angiotensin-converting-enzyme inhibitors, initial encounter; G89.29 Other chronic pain; M54.9 Dorsalgia, unspecified; R06.03 Acute respiratory distress; I48.91 Unspecified atrial fibrillation; J44.9 Chronic obstructive pulmonary disease, unspecified; R13.10 Dysphagia, unspecified; Z89.519 Acquired absence of unspecified leg below knee; Z88.8 Allergy status to other drugs, medicaments and biological substances; Z79.899 Other long term (current) drug therapy; Y92.098 Other place in other non-institutional residence as the place of occurrence of the external cause
CPT/HCPCS: 36415; 36430; 36600; 70490; 71045; 71250; 80053; 82803; 82948; 83735; 84478; 85007; 85018; 85025; 85610; 85730; 86885; 86900; 86901; 87070; 87635; 93005; 94002; 94760; 99291; 99292; A4314; G0378; J0171; J1200; J1644; J2060; J2543; J2704; J2930; J3010; J3301; J3370; J3490; J7030; J7040; P9059

== ENCOUNTER 2022-03-20 13:20 | Emergency (ER) | payer MEDICAID ==
[~2022-03-20] VITALS: Ht 170.2 cm; Wt 81.8 kg
[~2022-03-20 13:20] MED LIST changes: +CARV3.122 PO; -COR3.125T PO
[2022-03-20 19:07] VITALS: BP 161/82
== END 2022-03-20 19:00 | disposition home or self-care (01) ==
LOC: ER 13:20
DX: J95.03 Malfunction of tracheostomy stoma (principal); I11.0 Hypertensive heart disease with heart failure; E78.00 Pure hypercholesterolemia, unspecified; J44.9 Chronic obstructive pulmonary disease, unspecified; G89.29 Other chronic pain; M54.9 Dorsalgia, unspecified; F12.10 Cannabis abuse, uncomplicated; Z88.8 Allergy status to other drugs, medicaments and biological substances; Z79.899 Other long term (current) drug therapy
CPT/HCPCS: 99281; A6449

== ENCOUNTER 2022-06-13 13:45 | Emergency (ER) | payer MEDICAID ==
[~2022-06-13] VITALS: Ht 172.7 cm; Wt 74.0 kg
[2022-06-13 14:53] VITALS: BP 172/115
[2022-06-13] MEDS ORDERED: CLOT10TR5 PO (15:51)
== END 2022-06-13 16:03 | disposition home or self-care (01) ==
LOC: ER 13:45
DX: B37.0 Candidal stomatitis (principal); I11.0 Hypertensive heart disease with heart failure; I50.9 Heart failure, unspecified; E78.00 Pure hypercholesterolemia, unspecified; J44.9 Chronic obstructive pulmonary disease, unspecified; G89.29 Other chronic pain; M54.50 Low back pain, unspecified; F12.90 Cannabis use, unspecified, uncomplicated; Z88.1 Allergy status to other antibiotic agents
CPT/HCPCS: 87081; 87880; 99283

== ENCOUNTER 2024-04-03 14:26 | Inpatient (IN) | payer MEDICAID ==
[~2024-04-03] VITALS: Ht 167.6 cm; Wt 73.0 kg
[2024-04-03 15:03] LABS: BASOPHILS # (AUTO) 0.1 X10'3 (0-0.2); BASOPHILS % (AUTO) 0.8 % (0-1); EOSINOPHILS # (AUTO) 0.2 X10'3 (0-0.9); EOSINOPHILS % (AUTO) 3.2 % (0-6); HEMATOCRIT 37.5 % (42.0-52.0); HEMOGLOBIN 12.5 g/dl (14.0-17.9); LYMPHOCYTES # (AUTO) 0.9 X10'3 (1.1-4.8); LYMPHOCYTES % (AUTO) 14.4 % (21-51); MEAN CORPUSCULAR HEMOGLOBIN 31.4 PG (27.0-31.0); MEAN CORPUSCULAR HGB CONC 33.3 g/dL (33.0-36.5); MEAN CORPUSCULAR VOLUME 94.3 FL (78-98); MEAN PLATELET VOLUME 7.6 FL (7.4-10.4); MONOCYTES # (AUTO) 0.4 X10'3 (0-0.9); MONOCYTES % (AUTO) 6.3 % (2-12); NEUTROPHILS % (AUTO) 75.3 % (42-75); PLATELET COUNT 252 X10'3 (140-440); RED BLOOD COUNT 3.98 X10'6 (4.70-6.10); RED CELL DISTRIBUTION WIDTH 17.1 % (11.5-14.5); WHITE BLOOD COUNT 6.6 X10'3 (4.5-11.0)
[2024-04-03 15:19] LABS: ALANINE AMINOTRANSFERASE 19 U/L (12-78); ALBUMIN 3.8 G/DL (3.4-5.0); ALKALINE PHOSPHATASE 73 IU/L (46-116); ANION GAP 8 (8-16); ASPARTATE AMINO TRANSFERASE 20 U/L (10-37); BILIRUBIN,TOTAL 0.4 MG/DL (0.1-1.0); BLOOD UREA NITROGEN 40 MG/DL (7-18); BUN/CREATININE RATIO 11.8 (10.0-20.0); CALCIUM 10.4 MG/DL (8.5-10.1); CHLORIDE 107 MMOL/L (99-107); GLUCOSE 103 MG/DL (70-104); POTASSIUM 4.5 MMOL/L (3.5-5.1); SODIUM 140 MMOL/L (135-145); TOTAL CARBON DIOXIDE 24.7 MMOL/L (24-32); TOTAL PROTEIN 7.6 G/DL (6.4-8.2); eCRCL 21 ML/MIN; eGFR 19 ML/MIN
[2024-04-03 15:26] LABS: PRO BRAIN NATRIURETIC PEPTIDE 3915 PG/ML (0-125)
[2024-04-03] MEDS ORDERED: cloNIDine 0.1 mg tablet PO SCH (16:20)
[2024-04-03] MEDS: aspirin 81mg tab.chew PO ONE (16:33)
[2024-04-03] MEDS: LORazepam 1 MG tablet PO ONE (16:33)
[2024-04-03] MEDS: cloNIDine 0.1 mg tablet PO ONE (16:34)
[2024-04-03] MEDS: nitroGLYCERIN 0.4mg/hour patch TD ONE (16:40)
[2024-04-03] MEDS: furosemide 10 MG/1 ML 10ml inj IV ONE (17:25)
[2024-04-03] MEDS: hydrALAZINE 20mg/ml inj. IV ONE (17:42)
[2024-04-03] MEDS: nitroGLYCERIN 0.4mg SUBLingual tab SL PRN (17:43)
[2024-04-03] MEDS: ipratropium/albuterol 3ml nebule NEB ONE (17:53)
[2024-04-03 17:54] VITALS: PULSE 95; RESP 22; O2SAT 93
[2024-04-03 18:01] VITALS: PULSE 95; RESP 22; O2SAT 94
[2024-04-03] MEDS ORDERED: HYDR25TA90 PO (18:03)
[2024-04-03] MEDS ORDERED: AMLO2.5T5 PO (18:03)
--- NOTE | 2024-04-03 18:16 | NUR ---
Hospitalist at bedside, BP 95/60, Nitro Patch removed per MD order (see EMAR).
[2024-04-03] MEDS ORDERED: potassium Cl 40MEQ/1/2NS 520ml 520 ML IV PRN (19:20)
[2024-04-03] MEDS ORDERED: magnesium hydroxide 30ml (MOM) UD suspension PO PRN (19:20)
[2024-04-03] MEDS ORDERED: magnesium Cl slow-release 64mg tablet PO PRN (19:20)
[2024-04-03] MEDS ORDERED: magnesium sulf-water 4G/100mL 100 ML IV PRN (19:20)
[2024-04-03] MEDS ORDERED: mag hydrox/Alum hydrox/simeth 30ml oral suspension PO PRN (19:20)
[2024-04-03] MEDS ORDERED: magnesium sulf-water 2g/50mL 50 ML IV PRN (19:20)
[2024-04-03] MEDS ORDERED: ondansetron/PF 4mg/2ml inj IV PRN (19:20)
[2024-04-03] MEDS ORDERED: potassium Cl 20 mEq SR tablet PO PRN ×2 (19:20)
[2024-04-03] MEDS ORDERED: acetaminophen 325mg tablet PO PRN (19:20)
[2024-04-03 19:46] LABS: HEMOGLOBIN A1C 5.9 % (4.5-6.2); MAGNESIUM 2.4 MG/DL (1.5-2.4)
[2024-04-03] MEDS: glycopyrrolate 0.2mg/ml inj IV ONE (19:50)
[2024-04-03] MEDS ORDERED: heparin 10,000 units/1 ML INJ IV ONE (19:55)
[2024-04-03] MEDS ORDERED: heparin 10,000 units/1 ML INJ IV PRN (19:55)
[2024-04-03] MEDS ORDERED: heparin 25,000 UNIT/250ml bag 250 ML IV PRN (19:55)
[2024-04-03] MEDS: docusate sod 100mg capsule PO SCH (20:00)
[2024-04-03] MEDS: K and/or MAG REPLACEMENT MC SCH (20:00)
--- NOTE | 2024-04-03 20:02 | NUR ---
INITIAL HEPARIN DRIP DOSING HEPARIN DRIP PROTOCOL INDICATION: CARDIAC PATIENT WEIGHT(KG): 73 KG BASE LINE aPTT: PENDING BOLUS X1: 4000 UNIT INFUSION RATE: 900 UNIT/HR RN NAME: RENEE
[2024-04-03] MEDS: MESSAGE TO NURSING IV ONE (20:05)
[2024-04-03 20:33] LABS: APTT 25 SECONDS (22-32); PROTHROMBIN TIME 10.4 SECONDS (9.0-12.0)
--- NOTE | 2024-04-03 20:39 | NUR ---
ATTEMPTED IV 2X'S. NO SUCCESS.
[2024-04-03] MEDS: heparin 10,000 units/1 ML INJ IV ONE (21:18)
[2024-04-03] MEDS: heparin 25,000 UNIT/250ml bag 250 ML IV PRN (21:19)
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
[2024-04-03] MEDS: furosemide 20 MG/2 ML vial IV SCH (21:59)
--- NOTE | 2024-04-03 22:05 | NUR ---
Note celia in ED - 04/03/24 at 2240 by [email or web address] WALKED BY PT'S ROOM AND NOTICED OXYGEN SATURATION WAS DOWN TO 78% WITH A GOOD PLETH WAVEFORM. PT STATED HE HAD JUST GOTTEN UP TO USE A URINAL. HE WAS ON 6L NC WITH A HUMIDIFIER. PT SWITCHED TO NON-REBREATHER ON 15L 02. OXYGEN SATURATION INCREASED TO 95%. PRIMARY NURSE OF PT AWARE.
--- NOTE | 2024-04-03 22:10 | NUR ---
Rosa yang in ED - 04/03/24 at [email or web address] SHASHI MCCONNELL UPDATED ON PT. NO ORDERS GIVEN AT THIS TIME.
[2024-04-03 22:17] LABS: URINE AMPHETAMINE SCREEN POSITIVE (Neg); URINE BARBITUATE SCREEN NEGATIVE (Neg); URINE BENZODIAZEPINES SCREEN NEGATIVE (Neg); URINE CANNABINOID SCREEN NEGATIVE (Neg); URINE COCAINE SCREEN NEGATIVE (Neg); URINE METHADONE SCREEN NEGATIVE (Neg); URINE OPIATE SCREEN NEGATIVE (Neg); URINE PHENCYCLIDINE SCREEN NEGATIVE (Neg)
--- NOTE | 2024-04-03 22:20 | NUR ---
INFORMED THAT SHE CANNOT SPEND THE NIGHT UPSTAIRS W PT IT IS A SHARED ROOM. I INFORMED HER THAT I RELAYED HER WARNINGS TO THE APPROPRIATE STAFF AND WHEN REGULAR VISITING HOURS ARE UPSTAIRS. SHE DID NOT GET UPSET W ME, HOWEVER SHE WAS VIGOROUSLY ATTEMPTING TO WAKE PT AND GET HIM WORKED UP OVER HER LEAVING. THANKFULLY PT WAS STILL FAIRLY SEDATED AND DID NOT SEEM UPSET ABOUT HER LEAVING.
[2024-04-03 23:00] VITALS: BP 150/96; PULSE 82; RESP 16; TEMP 98; O2SAT 97
[2024-04-04 03:44] LABS: BASOPHILS # (AUTO) 0.1 X10'3 (0-0.2); BASOPHILS % (AUTO) 1.2 % (0-1); EOSINOPHILS # (AUTO) 0.2 X10'3 (0-0.9); HEMATOCRIT 36.2 % (42.0-52.0); HEMOGLOBIN 12.1 g/dl (14.0-17.9); LYMPHOCYTES # (AUTO) 0.8 X10'3 (1.1-4.8); MEAN CORPUSCULAR HEMOGLOBIN 31.2 PG (27.0-31.0); MEAN CORPUSCULAR HGB CONC 33.5 g/dL (33.0-36.5); MEAN CORPUSCULAR VOLUME 93.3 FL (78-98); MEAN PLATELET VOLUME 7.6 FL (7.4-10.4); MONOCYTES # (AUTO) 0.4 X10'3 (0-0.9); MONOCYTES % (AUTO) 6.7 % (2-12); NEUTROPHILS # (AUTO) 4.4 X10'3 (1.8-7.7); NEUTROPHILS % (AUTO) 76.1 % (42-75); PLATELET COUNT 215 X10'3 (140-440); RED BLOOD COUNT 3.88 X10'6 (4.70-6.10); RED CELL DISTRIBUTION WIDTH 17.3 % (11.5-14.5); WHITE BLOOD COUNT 5.8 X10'3 (4.5-11.0)
[2024-04-04 03:59] LABS: ALBUMIN 3.6 G/DL (3.4-5.0); ANION GAP 12 (8-16); BLOOD UREA NITROGEN 43 MG/DL (7-18); BUN/CREATININE RATIO 12.2 (10.0-20.0); CALCIUM 10.1 MG/DL (8.5-10.1); CHLORIDE 105 MMOL/L (99-107); CHOL/HDL RATIO 6.8 (0.00-4.99); CHOLESTEROL 339 MG/DL (0-200); CREATININE 3.52 MG/DL (0.60-1.10); GLUCOSE 96 MG/DL (70-104); HDL CHOLESTEROL 50 MG/DL (35-60); LDL CHOLESTEROL 234 MG/DL (50-100); MAGNESIUM 2.1 MG/DL (1.5-2.4); SODIUM 141 MMOL/L (135-145); TOTAL CARBON DIOXIDE 24.1 MMOL/L (24-32); TRIGLYCERIDES 187 MG/DL (20-135); eCRCL 20 ML/MIN; eGFR 18 ML/MIN
--- NOTE | 2024-04-04 04:04 | NUR ---
REVIEW OF HEPARIN DRIP DOSING HEPARIN DRIP PROTOCOL INDICATION: ACS PATIENT WEIGHT(KG):73 APTT:65 TIME COLLECTED: 0330 CURRENT RATE: 900 UNIT/HR CHANGE IN INFUSION RATE: 800 UNIT/HR RE- BOLUS:NA RN NAME: JESSE REPEAT APTT: IN 6 HOURS
[2024-04-04] MEDS: MESSAGE TO NURSING IV ONE ×3 (04:05→17:52)
--- NOTE | 2024-04-04 06:20 | NUR ---
Problems reprioritized. Patient report given, questions answered & plan of care reviewed with SHARRON Macias.
[2024-04-04] MEDS: carVEDilol 3.125mg tablet PO SCH (07:58)
[2024-04-04] MEDS: hydrALAZINE 25 MG tablet PO SCH (07:58)
[2024-04-04] MEDS: levoTHYROXINE 75mcg tablet PO SCH (07:58)
[2024-04-04] MEDS: amLODIPine 2.5mg tablet PO SCH (07:58)
[2024-04-04] MEDS: atorvastatin 20mg tablet PO SCH (07:59)
[2024-04-04] MEDS: amiodarone 200mg tablet PO SCH (07:59)
[2024-04-04] MEDS: ESCITALOPRAM 10 mg tablet 10 MG TABLET PO SCH (07:59)
[2024-04-04 08:00] VITALS: RESP 15; O2SAT 99
[2024-04-04] MEDS ORDERED: lisinopril 20mg tablet PO SCH (08:00)
[2024-04-04] MEDS ORDERED: spironolactone 25 MG tablet PO SCH (08:00)
[2024-04-04 10:00] VITALS: BP 137/74; PULSE 73; RESP 15; TEMP 98.2; O2SAT 99
--- NOTE | 2024-04-04 10:59 | NUR ---
REVIEW OF HEPARIN DRIP DOSING HEPARIN DRIP PROTOCOL INDICATION: CARDIAC PATIENT WEIGHT(KG): 73 KG APTT: 52 TIME COLLECTED: 1020 CURRENT RATE:800 UNITS/HR CHANGE IN INFUSION RATE: NO CHANGE RE- BOLUS:6 HOURS RN NAME:Colleen
[2024-04-04 12:56] LABS: URINE AMPHETAMINE SCREEN POSITIVE (Neg); URINE BARBITUATE SCREEN NEGATIVE (Neg); URINE BENZODIAZEPINES SCREEN NEGATIVE (Neg); URINE CANNABINOID SCREEN NEGATIVE (Neg); URINE COCAINE SCREEN NEGATIVE (Neg); URINE METHADONE SCREEN NEGATIVE (Neg); URINE OPIATE SCREEN NEGATIVE (Neg); URINE PHENCYCLIDINE SCREEN NEGATIVE (Neg)
[2024-04-04] MEDS ORDERED: ondansetron 4mg rapidly disintigrating tab PO PRN (15:15)
[2024-04-04] MEDS ORDERED: aminophylline 250mg/10ml inj. IV PRN (17:15)
[2024-04-04] MEDS ORDERED: metoprolol tartrate 1mg/ml inj IV PRN (17:15)
[2024-04-04] MEDS ORDERED: nitroGLYCERIN 0.4mg SUBLingual tab SL PRN (17:15)
--- NOTE | 2024-04-04 17:34 | NUR ---
REVIEW OF HEPARIN DRIP DOSING HEPARIN DRIP PROTOCOL INDICATION: CARDIAC PATIENT WEIGHT(KG): 73 KG APTT: 42 TIME COLLECTED: @1631 CURRENT RATE: 800 UNIT/HR CHANGE IN INFUSION RATE: INCREASE TO 900 UNIT/HR RE- BOLUS: 300 UNIT RN NAME: SHANNAN REPEAT APTT: AFTER 6 HOURS
[2024-04-04] MEDS: heparin 10,000 units/1 ML INJ IV PRN (17:40)
--- NOTE | 2024-04-04 17:57 | NUR ---
Patient in room ORTHO 4015. I have received report from Vinod and had the opportunity to ask questions and assume patient care.
[2024-04-04 18:00] VITALS: BP 129/69; PULSE 74; RESP 16; TEMP 97.5; O2SAT 96
--- NOTE | 2024-04-04 18:43 | NUR ---
Problems reprioritized. Patient report given, questions answered & plan of care reviewed with Cathy.
[2024-04-04 22:00] VITALS: BP 137/76; PULSE 85; RESP 16; TEMP 98.9; O2SAT 94
[2024-04-05] VITALS (11 sets, daily range): BP systolic 127–155; BP diastolic 62–86; PULSE 64–89; RESP 14–18; TEMP 97–97.9; O2SAT 96–98
--- NOTE | 2024-04-05 00:16 | NUR ---
REVIEW OF HEPARIN DRIP DOSING HEPARIN DRIP PROTOCOL INDICATION: ACS PATIENT WEIGHT(KG): 73 APTT:56 TIME COLLECTED: 2330 CURRENT RATE: 900 UNI/HR CHANGE IN INFUSION RATE: NO CHANGE RE- BOLUS:ARMANDO MCDERMOTT NAME: SHAHIDA REPEAT APTT: IN 6 HOURS Addendum: 04/05/24 at 0040 by Frida Butts [facility] REVIEW OF HEPARIN DRIP DOSING HEPARIN DRIP PROTOCOL INDICATION: ACS PATIENT WEIGHT(KG): 73 APTT:66 TIME COLLECTED: 2310 CURRENT RATE: 900 UNI/HR CHANGE IN INFUSION RATE: 800 UNIT/HR RE- BOLUS: ARMANDO MCDERMOTT NAME: SHAHIDA REPEAT APTT: IN 6 HOURS
[2024-04-05] MEDS: MESSAGE TO NURSING IV ONE ×4 (00:28→13:15)
--- NOTE | 2024-04-05 06:23 | NUR ---
Problems reprioritized. Patient report given, questions answered & plan of care reviewed with SHARRON Munoz.
[2024-04-05 06:33] LABS: BASOPHILS # (AUTO) 0.1 X10'3 (0-0.2); BASOPHILS % (AUTO) 1.1 % (0-1); EOSINOPHILS # (AUTO) 0.2 X10'3 (0-0.9); EOSINOPHILS % (AUTO) 4.1 % (0-6); HEMATOCRIT 37.7 % (42.0-52.0); HEMOGLOBIN 12.6 g/dl (14.0-17.9); LYMPHOCYTES # (AUTO) 0.9 X10'3 (1.1-4.8); LYMPHOCYTES % (AUTO) 15.3 % (21-51); MEAN CORPUSCULAR HEMOGLOBIN 31.1 PG (27.0-31.0); MEAN CORPUSCULAR HGB CONC 33.3 g/dL (33.0-36.5); MEAN CORPUSCULAR VOLUME 93.5 FL (78-98); MEAN PLATELET VOLUME 7.6 FL (7.4-10.4); MONOCYTES # (AUTO) 0.5 X10'3 (0-0.9); MONOCYTES % (AUTO) 8.6 % (2-12); NEUTROPHILS # (AUTO) 4.2 X10'3 (1.8-7.7); NEUTROPHILS % (AUTO) 70.9 % (42-75); PLATELET COUNT 220 X10'3 (140-440); RED BLOOD COUNT 4.03 X10'6 (4.70-6.10); RED CELL DISTRIBUTION WIDTH 16.8 % (11.5-14.5); WHITE BLOOD COUNT 5.9 X10'3 (4.5-11.0)
[2024-04-05 06:42] LABS: APTT 51 SECONDS (22-32)
[2024-04-05 07:35] LABS: ALBUMIN 3.6 G/DL (3.4-5.0); ANION GAP 13 (8-16); BLOOD UREA NITROGEN 46 MG/DL (7-18); BUN/CREATININE RATIO 12.2 (10.0-20.0); CALCIUM 10.2 MG/DL (8.5-10.1); CHLORIDE 101 MMOL/L (99-107); CREATININE 3.77 MG/DL (0.60-1.10); GLUCOSE 95 MG/DL (70-104); MAGNESIUM 2.3 MG/DL (1.5-2.4); POTASSIUM 4.1 MMOL/L (3.5-5.1); SODIUM 139 MMOL/L (135-145); TOTAL CARBON DIOXIDE 25.3 MMOL/L (24-32); eCRCL 19 ML/MIN; eGFR 16 ML/MIN
--- NOTE | 2024-04-05 07:44 | NUR ---
REVIEW OF HEPARIN DRIP DOSING HEPARIN DRIP PROTOCOL INDICATION: CARDIAC PATIENT WEIGHT(KG): 73 APTT: 51 TIME COLLECTED: 612 CURRENT RATE: 8 ML/HR CHANGE IN INFUSION RATE: NO CHANGE RE- BOLUS: NA RN NAME: ELAINA REPEAT APTT: IN 6 HOURS
[2024-04-05] MEDS ORDERED: lisinopril 10 MG tablet PO SCH (08:00)
[2024-04-05] MEDS: aspirin 81mg, enteric-coated 1 TAB TABLET.DR PO SCH (08:06)
[2024-04-05] MEDS: atorvastatin 20mg tablet PO SCH (08:09)
--- NOTE | 2024-04-05 10:23 | NUR ---
pt to nuc med with RN as pt is on heparin gtt 800units/hour via pump. Pt is able to transfer self without assist from bed to wheelchair, no chest pain/discomfort, no SOB
[2024-04-05] MEDS: regadenoson 0.4mg/5ml syringe IV PRN (11:10)
--- NOTE | 2024-04-05 12:13 | NUR ---
pt has finished nuc med cardiac stress test, no complications, tolerated well, Report to Mildred MCDERMOTT
[2024-04-05 13:06] LABS: APTT 47 SECONDS (22-32)
--- NOTE | 2024-04-05 13:13 | NUR ---
REVIEW OF HEPARIN DRIP DOSING HEPARIN DRIP PROTOCOL INDICATION: CARDIAC PATIENT WEIGHT(KG): 73 KG APTT: 47 TIME COLLECTED: 1231 CURRENT RATE: 800 UNITS/HR CHANGE IN INFUSION RATE: NO RE- BOLUS: NO RN NAME: ELAINA REPEAT APTT: Q6HR
[2024-04-05] MEDS ORDERED: ASPI-1071 PO (14:24)
[2024-04-05] MEDS ORDERED: ATOR40TA71 PO (14:24)
[2024-04-05] MEDS ORDERED: FURO-150 PO (14:24)
[2024-04-05] MEDS ORDERED: CARV3.122 PO (14:24)
[2024-04-05] MEDS ORDERED: SACU1TAB PO (14:30)
--- NOTE | 2024-04-05 16:21 | NUR ---
Patient discharged in stable condition to home with . IV removed tip intact no complications. Belongings sent with pt. pt educated on discharge follow up instructions with Dr. Colon and Stumper Feller.
== END 2024-04-05 16:10 | disposition home or self-care (01) | DRG 190 ==
LOC: ER 14:27 → ED HOLD 21:14 → ORTHO 4S 22:53
PROVIDERS: ADMIT Internal Medicine; ATTEND Internal Medicine
PROC: 4A02XM4 Measurement of Cardiac Total Activity, External Approach (ICD-10-PCS; principal; 2024-04-05)
PROC: 3E033HZ Introduction of Radioactive Substance into Peripheral Vein, Percutaneous Approach (ICD-10-PCS; 2024-04-05)
DX: I21.4 Non-ST elevation (NSTEMI) myocardial infarction (principal); J96.01 Acute respiratory failure with hypoxia; I50.23 Acute on chronic systolic (congestive) heart failure; N17.9 Acute kidney failure, unspecified; I13.0 Hypertensive heart and chronic kidney disease with heart failure and stage 1 through stage 4 chronic kidney disease, or unspecified chronic kidney disease; I42.9 Cardiomyopathy, unspecified; E03.9 Hypothyroidism, unspecified; F41.9 Anxiety disorder, unspecified; F15.11 Other stimulant abuse, in remission; N18.30 Chronic kidney disease, stage 3 unspecified; E78.00 Pure hypercholesterolemia, unspecified; I48.91 Unspecified atrial fibrillation; G89.29 Other chronic pain; M54.9 Dorsalgia, unspecified; Z88.8 Allergy status to other drugs, medicaments and biological substances; Z79.01 Long term (current) use of anticoagulants; Z79.899 Other long term (current) drug therapy
CPT/HCPCS: 36415; 71045; 76770; 78452; 80048; 80053; 80061; 80305; 83036; 83735; 83880; 84155; 84165; 84484; 85025; 85610; 85730; 86592; 87081; 93005; 93017; 93306; 94640; 94760; 96374; 96375; 99291; A9500; G0378; J0360; J1644; J1940; J2785; J3490

== ENCOUNTER 2024-05-01 05:43 | Inpatient (IN) | payer MEDICAID ==
[~2024-05-01] VITALS: Ht 170.2 cm; Wt 76.0 kg
[~2024-05-01 05:43] MED LIST changes: +ASPI-1071 PO; +FURO-150 PO; -LISI20TA28 PO; +SACU1TAB PO; -SPIR25TA5 PO
[2024-05-01] MEDS ORDERED: ipratropium/albuterol 3ml nebule NEB PRN (05:55)
[2024-05-01] MEDS: methylPREDNISolone sod succ/PF 40mg inj. IV SCH (06:28)
[2024-05-01 07:12] LABS: BASOPHILS # (AUTO) 0.1 X10'3 (0-0.2); BASOPHILS % (AUTO) 0.6 % (0-1); EOSINOPHILS # (AUTO) 0.1 X10'3 (0-0.9); EOSINOPHILS % (AUTO) 0.8 % (0-6); HEMATOCRIT 33.7 % (42.0-52.0); HEMOGLOBIN 10.8 g/dl (14.0-17.9); LYMPHOCYTES # (AUTO) 0.8 X10'3 (1.1-4.8); LYMPHOCYTES % (AUTO) 8.5 % (21-51); MEAN CORPUSCULAR HEMOGLOBIN 31.4 PG (27.0-31.0); MEAN CORPUSCULAR HGB CONC 32.2 g/dL (33.0-36.5); MEAN CORPUSCULAR VOLUME 97.7 FL (78-98); MEAN PLATELET VOLUME 8.4 FL (7.4-10.4); MONOCYTES # (AUTO) 0.9 X10'3 (0-0.9); MONOCYTES % (AUTO) 8.9 % (2-12); NEUTROPHILS # (AUTO) 7.8 X10'3 (1.8-7.7); NEUTROPHILS % (AUTO) 81.2 % (42-75); PLATELET COUNT 198 X10'3 (140-440); RED BLOOD COUNT 3.45 X10'6 (4.70-6.10); RED CELL DISTRIBUTION WIDTH 16.9 % (11.5-14.5); WHITE BLOOD COUNT 9.7 X10'3 (4.5-11.0)
[2024-05-01] MEDS: azithromycin 250mg tablet PO ONE (07:17)
[2024-05-01] MEDS: CefTRIAXone/D5W-Rocephin 1gm 50 ML IV ONE (07:18)
[2024-05-01 07:25] LABS: D-DIMER 1.38 MG/L FEU (0-0.50)
[2024-05-01 07:35] LABS: ALANINE AMINOTRANSFERASE 33 U/L (12-78); ALBUMIN 3.4 G/DL (3.4-5.0); ALBUMIN/GLOBULIN RATIO 0.8 (1.1-1.5); ALKALINE PHOSPHATASE 83 IU/L (46-116); ANION GAP 11 (8-16); ASPARTATE AMINO TRANSFERASE 20 U/L (10-37); BILIRUBIN,TOTAL 0.8 MG/DL (0.1-1.0); BLOOD UREA NITROGEN 39 MG/DL (7-18); BUN/CREATININE RATIO 11.1 (10.0-20.0); CALCIUM 9.8 MG/DL (8.5-10.1); CHLORIDE 103 MMOL/L (99-107); GLUCOSE 132 MG/DL (70-104); POTASSIUM 4.1 MMOL/L (3.5-5.1); SODIUM 138 MMOL/L (135-145); TOTAL CARBON DIOXIDE 24.2 MMOL/L (24-32); TOTAL PROTEIN 7.5 G/DL (6.4-8.2); eCRCL 21 ML/MIN; eGFR 18 ML/MIN
[2024-05-01 07:42] LABS: PRO BRAIN NATRIURETIC PEPTIDE 2846 PG/ML (0-125)
[2024-05-01] MEDS ORDERED: potassium Cl 20 mEq SR tablet PO PRN ×2 (08:25)
[2024-05-01] MEDS ORDERED: potassium Cl 40MEQ/1/2NS 520ml 520 ML IV PRN (08:25)
[2024-05-01] MEDS ORDERED: albuterol 2.5 MG/3 ML nebule NEB PRN (08:25)
[2024-05-01] MEDS ORDERED: acetaminophen 325mg tablet PO PRN (08:25)
[2024-05-01] MEDS ORDERED: magnesium hydroxide 30ml (MOM) UD suspension PO PRN (08:25)
[2024-05-01] MEDS ORDERED: magnesium sulf-water 4G/100mL 100 ML IV PRN (08:25)
[2024-05-01] MEDS ORDERED: mag hydrox/Alum hydrox/simeth 30ml oral suspension PO PRN (08:25)
[2024-05-01] MEDS ORDERED: magnesium sulf-water 2g/50mL 50 ML IV PRN (08:25)
[2024-05-01] MEDS ORDERED: ondansetron/PF 4mg/2ml inj IV PRN (08:25)
[2024-05-01] MEDS ORDERED: magnesium Cl slow-release 64mg tablet PO PRN (08:25)
[2024-05-01] MEDS: furosemide 10 MG/1 ML 10ml inj IV SCH (10:10)
[2024-05-01] MEDS ORDERED: ATOR-2 PO (11:54)
[2024-05-01] MEDS ORDERED: SACU1TAB PO (11:54)
[2024-05-01] MEDS ORDERED: CARV3.1244 PO (11:54)
[2024-05-01] MEDS ORDERED: ASPI-1397 PO (11:54)
[2024-05-01] MEDS ORDERED: HYDR25TA90 PO (11:54)
[2024-05-01] MEDS ORDERED: FURO20TA4 PO (11:54)
[2024-05-01] MEDS ORDERED: AMLO2.5T5 PO (11:54)
[2024-05-01] MEDS: amiodarone 200mg tablet PO SCH (12:46)
[2024-05-01] MEDS: hydrALAZINE 25 MG tablet PO SCH (12:47)
[2024-05-01] MEDS: amLODIPine 2.5mg tablet PO SCH (12:47)
[2024-05-01 13:13] LABS: FREE T4 (FREE THYROXINE) 0.85 NG/DL (0.73-1.40); THYROID STIMULATING HORMONE 38.7 ulU/ml (0.34-4.50)
[2024-05-01] MEDS: metoprolol tartrate 1mg/ml inj IV ONE (13:30)
[2024-05-01 14:45] VITALS: BP 128/86; PULSE 120; RESP 20; TEMP 98.6; O2SAT 96
[2024-05-01] MEDS: K and/or MAG REPLACEMENT MC SCH (20:00)
[2024-05-01] MEDS: sacubitril/valsartan 24mg-26mg tablet PO SCH (21:44)
[2024-05-01] MEDS: carVEDilol 3.125mg tablet PO SCH (21:45)
[2024-05-01] MEDS: docusate sod 100mg capsule PO SCH (21:46)
[2024-05-01] MEDS: apixaban 5mg tablet PO SCH (21:46)
[2024-05-01] MEDS: diltiazem 5mg/ml 5ml inj. IV ONE (23:45)
[2024-05-02] VITALS (19 sets, daily range): BP systolic 101–182; BP diastolic 71–107; PULSE 69–130; RESP 10–24; TEMP 97.3–98.4; O2SAT 96–99
[2024-05-02] MEDS: carvedilol 6.25mg tablet PO ONE ×2 (05:14→09:26)
[2024-05-02] MEDS: carVEDilol 12.5mg tablet PO SCH (08:00)
[2024-05-02] MEDS ORDERED: methylPREDNISolone sod succ/PF 40mg inj. IV SCH (08:00)
[2024-05-02] MEDS ORDERED: methylPREDNISolone sod succ 125mg/2ml vial IV SCH (08:00)
[2024-05-02] MEDS ORDERED: furosemide 20 MG/2 ML vial IV SCH (08:04)
[2024-05-02 08:20] LABS: BASOPHILS % (AUTO) 0.1 % (0-1); EOSINOPHILS % (AUTO) 0 % (0-6); HEMATOCRIT 33.6 % (42.0-52.0); HEMOGLOBIN 10.9 g/dl (14.0-17.9); LYMPHOCYTES # (AUTO) 0.5 X10'3 (1.1-4.8); LYMPHOCYTES % (AUTO) 4.4 % (21-51); MEAN CORPUSCULAR HEMOGLOBIN 31.4 PG (27.0-31.0); MEAN CORPUSCULAR HGB CONC 32.6 g/dL (33.0-36.5); MEAN CORPUSCULAR VOLUME 96.3 FL (78-98); MEAN PLATELET VOLUME 8.3 FL (7.4-10.4); MONOCYTES # (AUTO) 0.7 X10'3 (0-0.9); MONOCYTES % (AUTO) 5.5 % (2-12); NEUTROPHILS # (AUTO) 11.2 X10'3 (1.8-7.7); PLATELET COUNT 247 X10'3 (140-440); RED BLOOD COUNT 3.49 X10'6 (4.70-6.10); RED CELL DISTRIBUTION WIDTH 16.9 % (11.5-14.5); WHITE BLOOD COUNT 12.4 X10'3 (4.5-11.0)
[2024-05-02 08:37] LABS: MAGNESIUM 2.2 MG/DL (1.5-2.4); POTASSIUM 5.4 MMOL/L (3.5-5.1)
[2024-05-02] MEDS: azithromycin/NS 500mg/250ml 250 ML IV SCH (09:09)
[2024-05-02] MEDS: CefTRIAXone/D5W-Rocephin 1gm 50 ML IV SCH (09:09)
[2024-05-02] MEDS: levoTHYROXINE 75mcg tablet PO SCH (09:12)
[2024-05-02] MEDS: aspirin 81mg, enteric-coated 1 TAB TABLET.DR PO SCH (09:13)
[2024-05-02] MEDS: atorvastatin 20mg tablet PO SCH (09:14)
[2024-05-02] MEDS: ESCITALOPRAM 10 mg tablet 10 MG TABLET PO SCH (09:16)
[2024-05-02] MEDS: furosemide 20 MG/2 ML vial IV SCH (09:26)
[2024-05-02] MEDS ORDERED: metoprolol tartrate 1mg/ml inj IV PRN (10:15)
[2024-05-02] MEDS ORDERED: nitroGLYCERIN 0.4mg SUBLingual tab SL PRN (10:15)
[2024-05-02] MEDS ORDERED: aminophylline 250mg/10ml inj. IV PRN (10:15)
[2024-05-02] MEDS: metoprolol tartrate 1mg/ml inj IV SCH (10:41)
[2024-05-02] MEDS: metoprolol succinate 25mg (24-HOUR) SR. Tablet PO SCH (10:55)
[2024-05-02 11:32] LABS: ALANINE AMINOTRANSFERASE 25 U/L (12-78); ALBUMIN 2.9 G/DL (3.4-5.0); ALBUMIN/GLOBULIN RATIO 0.6 (1.1-1.5); ALKALINE PHOSPHATASE 87 IU/L (46-116); ANION GAP 11 (8-16); ASPARTATE AMINO TRANSFERASE 17 U/L (10-37); BILIRUBIN,TOTAL 0.4 MG/DL (0.1-1.0); BLOOD UREA NITROGEN 47 MG/DL (7-18); BUN/CREATININE RATIO 15.2 (10.0-20.0); CALCIUM 9.5 MG/DL (8.5-10.1); CHLORIDE 103 MMOL/L (99-107); GLUCOSE 164 MG/DL (70-104); POTASSIUM 4.4 MMOL/L (3.5-5.1); SODIUM 138 MMOL/L (135-145); TOTAL CARBON DIOXIDE 23.6 MMOL/L (24-32); TOTAL PROTEIN 7.5 G/DL (6.4-8.2); eCRCL 24 ML/MIN; eGFR 21 ML/MIN
[2024-05-02 11:39] LABS: ALBUMIN 2.9 G/DL (3.4-5.0); ANION GAP 11 (8-16); BLOOD UREA NITROGEN 47 MG/DL (7-18); BUN/CREATININE RATIO 14.8 (10.0-20.0); CALCIUM 9.6 MG/DL (8.5-10.1); CHLORIDE 104 MMOL/L (99-107); CREATININE 3.17 MG/DL (0.60-1.10); GLUCOSE 163 MG/DL (70-104); SODIUM 138 MMOL/L (135-145); TOTAL CARBON DIOXIDE 23.1 MMOL/L (24-32); eCRCL 23 ML/MIN; eGFR 20 ML/MIN
[2024-05-03] VITALS (13 sets, daily range): BP systolic 95–153; BP diastolic 59–97; PULSE 58–121; RESP 14–16; TEMP 97.1–97.6; O2SAT 96–100
[2024-05-03] MEDS ORDERED: metoprolol succinate 25mg (24-HOUR) SR. Tablet PO SCH (08:00)
[2024-05-03 08:03] LABS: BASOPHILS % (AUTO) 0.3 % (0-1); EOSINOPHILS # (AUTO) 0.1 X10'3 (0-0.9); EOSINOPHILS % (AUTO) 0.5 % (0-6); HEMATOCRIT 36.3 % (42.0-52.0); HEMOGLOBIN 11.7 g/dl (14.0-17.9); LYMPHOCYTES # (AUTO) 1.4 X10'3 (1.1-4.8); LYMPHOCYTES % (AUTO) 10.9 % (21-51); MEAN CORPUSCULAR HEMOGLOBIN 31.2 PG (27.0-31.0); MEAN CORPUSCULAR HGB CONC 32.2 g/dL (33.0-36.5); MEAN CORPUSCULAR VOLUME 96.9 FL (78-98); MEAN PLATELET VOLUME 8.5 FL (7.4-10.4); MONOCYTES # (AUTO) 1.4 X10'3 (0-0.9); NEUTROPHILS # (AUTO) 9.6 X10'3 (1.8-7.7); NEUTROPHILS % (AUTO) 77.3 % (42-75); PLATELET COUNT 298 X10'3 (140-440); RED BLOOD COUNT 3.74 X10'6 (4.70-6.10); RED CELL DISTRIBUTION WIDTH 16.9 % (11.5-14.5); WHITE BLOOD COUNT 12.4 X10'3 (4.5-11.0)
[2024-05-03 08:30] LABS: ALANINE AMINOTRANSFERASE 30 U/L (12-78); ALBUMIN 2.8 G/DL (3.4-5.0); ALBUMIN/GLOBULIN RATIO 0.7 (1.1-1.5); ALKALINE PHOSPHATASE 83 IU/L (46-116); ANION GAP 6 (8-16); ASPARTATE AMINO TRANSFERASE 25 U/L (10-37); BILIRUBIN,TOTAL 0.2 MG/DL (0.1-1.0); BLOOD UREA NITROGEN 60 MG/DL (7-18); BUN/CREATININE RATIO 19.8 (10.0-20.0); CALCIUM 9.4 MG/DL (8.5-10.1); CHLORIDE 104 MMOL/L (99-107); CREATININE 3.03 MG/DL (0.60-1.10); GLUCOSE 95 MG/DL (70-104); POTASSIUM 4.6 MMOL/L (3.5-5.1); SODIUM 138 MMOL/L (135-145); TOTAL CARBON DIOXIDE 28.1 MMOL/L (24-32); eCRCL 24 ML/MIN; eGFR 21 ML/MIN
[2024-05-03] MEDS ORDERED: normal saline 1000ml 1,000 ML IV SCH (08:55)
[2024-05-03] MEDS: regadenoson 0.4mg/5ml syringe IV PRN (09:39)
[2024-05-03] MEDS: azithromycin/NS 500mg/250ml 250 ML IV SCH (12:13)
[2024-05-03] MEDS ORDERED: METO-395 PO (13:16)
[2024-05-03] MEDS ORDERED: FURO20TA4 PO (13:16)
[2024-05-03] MEDS ORDERED: LEVO750T68 PO (13:19)
[2024-05-03] MEDS ORDERED: FURO-150 PO ×2 (13:20→14:56)
[2024-05-03] MEDS ORDERED: EMPA10TA PO (13:23)
[2024-05-03] MEDS ORDERED: ondansetron 4mg rapidly disintigrating tab PO PRN (16:25)
== END 2024-05-03 16:00 | disposition home or self-care (01) | DRG 720 ==
LOC: ER 05:43 → UNDOADMIN 08:17 → ED HOLD 08:17 → ORTHO 4S 14:45 → PCU 3S 20:00
PROVIDERS: ADMIT Internal Medicine; ATTEND Internal Medicine
PROC: 4A02XM4 Measurement of Cardiac Total Activity, External Approach (ICD-10-PCS; principal; 2024-05-03)
PROC: 3E033HZ Introduction of Radioactive Substance into Peripheral Vein, Percutaneous Approach (ICD-10-PCS; 2024-05-03)
DX: A41.9 Sepsis, unspecified organism (principal); J69.0 Pneumonitis due to inhalation of food and vomit; I50.23 Acute on chronic systolic (congestive) heart failure; J44.1 Chronic obstructive pulmonary disease with (acute) exacerbation; J45.901 Unspecified asthma with (acute) exacerbation; I13.0 Hypertensive heart and chronic kidney disease with heart failure and stage 1 through stage 4 chronic kidney disease, or unspecified chronic kidney disease; I48.91 Unspecified atrial fibrillation; N18.9 Chronic kidney disease, unspecified; E78.5 Hyperlipidemia, unspecified; E03.9 Hypothyroidism, unspecified; E78.00 Pure hypercholesterolemia, unspecified; G89.29 Other chronic pain; M54.9 Dorsalgia, unspecified; Z79.01 Long term (current) use of anticoagulants; Z79.899 Other long term (current) drug therapy; Z79.82 Long term (current) use of aspirin; Z88.8 Allergy status to other drugs, medicaments and biological substances
CPT/HCPCS: 36415; 71045; 71250; 74176; 78452; 80048; 80053; 83605; 83735; 83880; 84132; 84145; 84439; 84443; 84484; 85025; 85379; 87040; 87081; 92508; 92616; 93005; 93017; 99285; A9500; G0378; J0456; J0696; J1940; J2785; J2919; J3490

== ENCOUNTER 2024-07-06 02:12 | Inpatient (IN) | payer MEDICAID ==
[~2024-07-06] VITALS: Ht 172.7 cm; Wt 78.9 kg
[~2024-07-06 02:12] MED LIST changes: +AMLO2.5T5 PO; -ASPI-1071 PO; +ASPI-1397 PO; +ATOR-2 PO; -ATOR40TA71 PO; -CARV3.122 PO; +EMPA10TA PO; -FURO-150 PO; +HYDR25TA90 PO; +LEVO750T68 PO; +METO-395 PO
[2024-07-06] MEDS: methylPREDNISolone sod succ 125mg/2ml vial IV ONE (02:35)
[2024-07-06] MEDS: magnesium sulf-water 2g/50mL 50 ML IV ONE (02:37)
[2024-07-06] MEDS ORDERED: VANCOMYCIN 2GM/400ML H20 (PEG) 400 ML IV ONE (02:40)
[2024-07-06] MEDS: ipratropium/albuterol 3ml nebule NEB ONE (02:45)
[2024-07-06] MEDS: albuterol 2.5 MG/3 ML nebule NEB ONE (02:45)
[2024-07-06 02:49] VITALS: PULSE 134; RESP 18; O2SAT 96
[2024-07-06] MEDS ORDERED: diltiazem-NS 100mg/100ml 100 ML IV SCH (02:55)
[2024-07-06 02:57] VITALS: PULSE 134; RESP 18; O2SAT 96
[2024-07-06 03:02] LABS: BASOPHILS # (AUTO) 0.1 X10'3 (0-0.2); BASOPHILS % (AUTO) 1.2 % (0-1); EOSINOPHILS # (AUTO) 0.2 X10'3 (0-0.9); EOSINOPHILS % (AUTO) 3.5 % (0-6); HEMATOCRIT 37.9 % (42.0-52.0); HEMOGLOBIN 12.5 g/dl (14.0-17.9); LYMPHOCYTES % (AUTO) 15.5 % (21-51); MEAN CORPUSCULAR HGB CONC 32.9 g/dL (33.0-36.5); MEAN CORPUSCULAR VOLUME 94.2 FL (78-98); MEAN PLATELET VOLUME 8.1 FL (7.4-10.4); MONOCYTES # (AUTO) 0.4 X10'3 (0-0.9); MONOCYTES % (AUTO) 6.3 % (2-12); NEUTROPHILS # (AUTO) 4.7 X10'3 (1.8-7.7); NEUTROPHILS % (AUTO) 73.5 % (42-75); PLATELET COUNT 375 X10'3 (140-440); RED BLOOD COUNT 4.02 X10'6 (4.70-6.10); RED CELL DISTRIBUTION WIDTH 16.4 % (11.5-14.5); WHITE BLOOD COUNT 6.4 X10'3 (4.5-11.0)
[2024-07-06] MEDS: VANCOMYCIN/H2O 1.75g/350mL PB 350 ML IV ONE (03:16)
[2024-07-06 03:17] LABS: APTT 29 SECONDS (22-32); PROTHROMBIN TIME 10.8 SECONDS (9.0-12.0)
[2024-07-06] MEDS: diltiazem 5mg/ml 5ml inj. IV ONE ×3 (03:23→12:50)
[2024-07-06 03:25] LABS: ALANINE AMINOTRANSFERASE 37 U/L (12-78); ALBUMIN 3.7 G/DL (3.4-5.0); ALBUMIN/GLOBULIN RATIO 0.7 (1.1-1.5); ALKALINE PHOSPHATASE 146 IU/L (46-116); ANION GAP 11 (8-16); ASPARTATE AMINO TRANSFERASE 36 U/L (10-37); BILIRUBIN,TOTAL 0.6 MG/DL (0.1-1.0); BLOOD UREA NITROGEN 41 MG/DL (7-18); BUN/CREATININE RATIO 12.7 (10.0-20.0); CALCIUM 9.8 MG/DL (8.5-10.1); CHLORIDE 103 MMOL/L (99-107); CREATININE 3.24 MG/DL (0.60-1.10); GLUCOSE 133 MG/DL (70-104); POTASSIUM 4.4 MMOL/L (3.5-5.1); SODIUM 139 MMOL/L (135-145); TOTAL CARBON DIOXIDE 24.7 MMOL/L (24-32); eCRCL 23 ML/MIN; eGFR 20 ML/MIN
[2024-07-06 03:27] LABS: PRO BRAIN NATRIURETIC PEPTIDE 11411 PG/ML (0-125)
[2024-07-06] MEDS: diltiazem-NS 100mg/100ml 100 ML IV SCH (03:32)
[2024-07-06] MEDS: aspirin 81mg tab.chew PO ONE (03:55)
[2024-07-06] MEDS: furosemide 10 MG/1 ML 10ml inj IV ONE (03:56)
[2024-07-06] MEDS ORDERED: heparin 10,000 units/1 ML INJ IV PRN (04:05)
[2024-07-06] MEDS: HEPARIN DRIP-CARDIAC**PHARMACIST-TO-DOSE IV ONE (04:51)
[2024-07-06] MEDS: heparin 10,000 units/1 ML INJ IV ONE (05:01)
[2024-07-06] MEDS: heparin 25,000 UNIT/250ml bag 250 ML IV PRN (05:05)
[2024-07-06] MEDS: MESSAGE TO NURSING IV ONE (05:08)
[2024-07-06] MEDS ORDERED: magnesium sulf-water 2g/50mL 50 ML IV PRN (05:10)
[2024-07-06] MEDS ORDERED: potassium Cl 20 mEq SR tablet PO PRN ×2 (05:10)
[2024-07-06] MEDS ORDERED: potassium Cl 40MEQ/1/2NS 520ml 520 ML IV PRN (05:10)
[2024-07-06] MEDS ORDERED: magnesium sulf-water 4G/100mL 100 ML IV PRN (05:10)
[2024-07-06] MEDS ORDERED: magnesium Cl slow-release 64mg tablet PO PRN (05:10)
[2024-07-06 05:44] LABS: BILIRUBIN,URINE NEGATIVE (Neg); CLARITY,URINE CLEAR (Clear); COLOR,URINE YELLOW (Yellow); GLUCOSE, URINE NEGATIVE (Neg); KETONES,URINE NEGATIVE (Neg); LEUKOCYTE ESTERASE ,URINE NEGATIVE (Neg); NITRITES, URINE NEGATIVE (Neg); OCCULT BLOOD,URINE TRACE-INTACT (Neg); PH,URINE 5.5 (4.8-8.0); PROTEIN,URINE >=300 mg/dl (Neg); UROBILINOGEN,URINE 0.2 E.U/dL (0.2-1.0)
[2024-07-06 05:47] LABS: HEMOGLOBIN A1C 5.9 % (4.5-6.2)
[2024-07-06 05:48] LABS: UA COLLECTION TYPE URINAL
[2024-07-06 05:49] LABS: BACTERIA,URINE NONE SEEN /HPF (Neg); MUCUS STRANDS NONE SEEN /LPF (Neg); RBC,URINE 0-2 /HPF (0-2); SQUAMOUS EPITHELIAL CELL,UR FEW /LPF (FEW); WBC,URINE NONE SEEN /HPF (0-4)
[2024-07-06] MEDS ORDERED: ipratropium/albuterol 3ml nebule NEB PRN (06:55)
[2024-07-06 07:52] LABS: D-DIMER 3.65 MG/L FEU (0-0.50)
[2024-07-06] MEDS: apixaban 5mg tablet PO SCH (08:31)
[2024-07-06] MEDS: furosemide 40mg/4ml inj IV SCH (08:31)
[2024-07-06] MEDS: piperacillin/tazo 3.375gm/50ml 50 ML IV SCH (08:32)
[2024-07-06] MEDS: benzonatate 100mg capsule PO SCH (08:32)
[2024-07-06] MEDS: guaiFENesin ER 600mg tablet PO SCH (08:32)
[2024-07-06] MEDS: K and/or MAG REPLACEMENT MC SCH (08:40)
[2024-07-06] MEDS: metoprolol succinate 25mg (24-HOUR) SR. Tablet PO SCH (09:15)
[2024-07-06] MEDS: amLODIPine 5mg tablet PO SCH (09:15)
[2024-07-06] MEDS ORDERED: metoprolol tartrate 50mg tablet PO ONE (09:35)
[2024-07-06] MEDS ORDERED: sacubitril/valsartan 24mg-26mg tablet PO SCH (09:35)
[2024-07-06] MEDS: atorvastatin 20mg tablet PO SCH (09:49)
[2024-07-06] MEDS: amiodarone 200mg tablet PO SCH (09:49)
[2024-07-06] MEDS: metoprolol tartrate 25mg tablet PO ONE (09:50)
[2024-07-06] MEDS: EMPAGLIFLOZIN 10 MG TABLET PO SCH (09:51)
[2024-07-06] MEDS: aspirin 81mg, enteric-coated 1 TAB TABLET.DR PO SCH (09:51)
[2024-07-06] MEDS: amLODIPine 5mg tablet PO ONE (09:53)
[2024-07-06] MEDS: PERFLUTREN PROTEIN-A MICROSPHR (Optison) 0.22 MG/ML 3ML VIAL IV ONE (09:55)
[2024-07-06] MEDS: sacubitril/valsartan 24mg-26mg tablet PO SCH (10:59)
[2024-07-06] MEDS: levoTHYROXINE 75mcg tablet PO SCH (10:59)
[2024-07-06 11:03] LABS: FREE T4 (FREE THYROXINE) 0.81 NG/DL (0.73-1.40)
[2024-07-06 11:06] LABS: THYROID STIMULATING HORMONE 54.38 ulU/ml (0.34-4.50)
[2024-07-06] MEDS: diltiazem SR 60mg capsule (twice daily) PO SCH ×2 (12:40→14:06)
[2024-07-06] MEDS: diltiazem 30mg tablet PO SCH (13:29)
[2024-07-06] MEDS: hydrALAZINE 25 MG tablet PO SCH (16:25)
[2024-07-06 19:25] VITALS: PULSE 127; RESP 16; O2SAT 96
[2024-07-06 20:47] LABS: ALANINE AMINOTRANSFERASE 27 U/L (12-78); ALBUMIN 3.1 G/DL (3.4-5.0); ALBUMIN/GLOBULIN RATIO 0.6 (1.1-1.5); ALKALINE PHOSPHATASE 122 IU/L (46-116); ANION GAP 16 (8-16); ASPARTATE AMINO TRANSFERASE 21 U/L (10-37); BILIRUBIN,TOTAL 0.9 MG/DL (0.1-1.0); BLOOD UREA NITROGEN 45 MG/DL (7-18); BUN/CREATININE RATIO 13.9 (10.0-20.0); CHLORIDE 98 MMOL/L (99-107); CREATININE 3.23 MG/DL (0.60-1.10); GLUCOSE 156 MG/DL (70-104); POTASSIUM 3.8 MMOL/L (3.5-5.1); SODIUM 139 MMOL/L (135-145); TOTAL CARBON DIOXIDE 24.6 MMOL/L (24-32); TOTAL PROTEIN 8.1 G/DL (6.4-8.2); eCRCL 24 ML/MIN; eGFR 20 ML/MIN
[2024-07-07] VITALS (13 sets, daily range): BP systolic 65–106; BP diastolic 36–64; PULSE 50–120; RESP 13–20; TEMP 97–98.2; O2SAT 89–99
[2024-07-07 03:30] LABS: BASOPHILS % (AUTO) 0.2 % (0-1); EOSINOPHILS % (AUTO) 0.1 % (0-6); HEMOGLOBIN 11.7 g/dl (14.0-17.9); LYMPHOCYTES # (AUTO) 0.6 X10'3 (1.1-4.8); MEAN CORPUSCULAR HEMOGLOBIN 31.1 PG (27.0-31.0); MEAN CORPUSCULAR HGB CONC 33.3 g/dL (33.0-36.5); MEAN CORPUSCULAR VOLUME 93.3 FL (78-98); MEAN PLATELET VOLUME 8.7 FL (7.4-10.4); MONOCYTES # (AUTO) 0.7 X10'3 (0-0.9); MONOCYTES % (AUTO) 4.3 % (2-12); NEUTROPHILS # (AUTO) 14.7 X10'3 (1.8-7.7); NEUTROPHILS % (AUTO) 91.4 % (42-75); PLATELET COUNT 376 X10'3 (140-440); RED BLOOD COUNT 3.76 X10'6 (4.70-6.10); RED CELL DISTRIBUTION WIDTH 16.2 % (11.5-14.5)
[2024-07-07 03:40] LABS: APTT 33 SECONDS (22-32); INR 1.1 INR; PROTHROMBIN TIME 11.8 SECONDS (9.0-12.0)
[2024-07-07] MEDS: VANCOMYCIN 500MG/WATER FOR INJ (PEG) PREMIX 100 ML IV SCH (03:59)
[2024-07-07 04:04] LABS: ALANINE AMINOTRANSFERASE 28 U/L (12-78); ALBUMIN 2.8 G/DL (3.4-5.0); ALBUMIN/GLOBULIN RATIO 0.6 (1.1-1.5); ALKALINE PHOSPHATASE 114 IU/L (46-116); ANION GAP 12 (8-16); BILIRUBIN,TOTAL 0.9 MG/DL (0.1-1.0); BLOOD UREA NITROGEN 49 MG/DL (7-18); BUN/CREATININE RATIO 14.4 (10.0-20.0); CALCIUM 9.1 MG/DL (8.5-10.1); CHLORIDE 99 MMOL/L (99-107); FREE T4 (FREE THYROXINE) 0.78 NG/DL (0.73-1.40); GLUCOSE 121 MG/DL (70-104); MAGNESIUM 2.5 MG/DL (1.5-2.4); SODIUM 137 MMOL/L (135-145); THYROID STIMULATING HORMONE 18.71 ulU/ml (0.34-4.50); TOTAL CARBON DIOXIDE 26.2 MMOL/L (24-32); TOTAL PROTEIN 7.6 G/DL (6.4-8.2); eCRCL 22 ML/MIN; eGFR 19 ML/MIN
[2024-07-07 04:06] LABS: ASPARTATE AMINO TRANSFERASE 31 U/L (10-37); PHOSPHORUS 3.7 MG/DL (2.3-4.5); POTASSIUM 4.8 MMOL/L (3.5-5.1)
[2024-07-07] MEDS ORDERED: hydrALAZINE 25 MG tablet PO SCH ×2 (08:00→08:15)
[2024-07-07] MEDS: ESCITALOPRAM 10 mg tablet 10 MG TABLET PO SCH (09:15)
[2024-07-07] MEDS: metoprolol succinate 25mg (24-HOUR) SR. Tablet PO SCH (09:16)
[2024-07-07] MEDS: CefTRIAXone/D5W-Rocephin 1gm 50 ML IV SCH (09:57)
[2024-07-07] MEDS: azithromycin/NS 500mg/250ml 250 ML IV SCH (10:04)
[2024-07-07] MEDS: morphine 2 MG/ML inj. syringe IV ONE (12:14)
[2024-07-07] MEDS: normal saline 500ml IV soln 500 ML IV ONE (12:25)
[2024-07-07] MEDS ORDERED: nitroGLYCERIN 0.4mg SUBLingual tab SL PRN (12:25)
[2024-07-07] MEDS: pantoprazole 40 MG vial IV ONE (13:39)
[2024-07-08] VITALS (12 sets, daily range): BP systolic 100–144; BP diastolic 46–81; PULSE 56–98; RESP 12–24; TEMP 96.3–98.7; O2SAT 94–98
[2024-07-08 07:40] LABS: BASOPHILS % (AUTO) 0.4 % (0-1); EOSINOPHILS # (AUTO) 0.1 X10'3 (0-0.9); EOSINOPHILS % (AUTO) 0.4 % (0-6); HEMATOCRIT 35.5 % (42.0-52.0); HEMOGLOBIN 11.5 g/dl (14.0-17.9); LYMPHOCYTES # (AUTO) 1.1 X10'3 (1.1-4.8); LYMPHOCYTES % (AUTO) 8.6 % (21-51); MEAN CORPUSCULAR HEMOGLOBIN 30.3 PG (27.0-31.0); MEAN CORPUSCULAR HGB CONC 32.5 g/dL (33.0-36.5); MEAN CORPUSCULAR VOLUME 93.2 FL (78-98); MONOCYTES # (AUTO) 0.9 X10'3 (0-0.9); NEUTROPHILS # (AUTO) 10.2 X10'3 (1.8-7.7); NEUTROPHILS % (AUTO) 83.6 % (42-75); PLATELET COUNT 362 X10'3 (140-440); RED BLOOD COUNT 3.81 X10'6 (4.70-6.10); RED CELL DISTRIBUTION WIDTH 16.4 % (11.5-14.5); WHITE BLOOD COUNT 12.3 X10'3 (4.5-11.0)
[2024-07-08 07:58] LABS: APTT 31 SECONDS (22-32); INR 1.1 INR; PROTHROMBIN TIME 11.5 SECONDS (9.0-12.0)
[2024-07-08 08:04] LABS: ALANINE AMINOTRANSFERASE 21 U/L (12-78); ALBUMIN 2.9 G/DL (3.4-5.0); ALBUMIN/GLOBULIN RATIO 0.7 (1.1-1.5); ALKALINE PHOSPHATASE 99 IU/L (46-116); ANION GAP 13 (8-16); ASPARTATE AMINO TRANSFERASE 13 U/L (10-37); BILIRUBIN,TOTAL 0.4 MG/DL (0.1-1.0); BLOOD UREA NITROGEN 64 MG/DL (7-18); CALCIUM 8.7 MG/DL (8.5-10.1); CHLORIDE 102 MMOL/L (99-107); CREATININE 4.27 MG/DL (0.60-1.10); GLUCOSE 113 MG/DL (70-104); MAGNESIUM 2.2 MG/DL (1.5-2.4); PHOSPHORUS 5.5 MG/DL (2.3-4.5); POTASSIUM 4.4 MMOL/L (3.5-5.1); SODIUM 137 MMOL/L (135-145); TOTAL CARBON DIOXIDE 22.2 MMOL/L (24-32); TOTAL PROTEIN 7.1 G/DL (6.4-8.2); eCRCL 18 ML/MIN; eGFR 14 ML/MIN
[2024-07-08] MEDS: diltiazem CD 180mg cap (once-daily) PO SCH (08:59)
[2024-07-08] MEDS ORDERED: ringers solution, lacted 1,000 ML IV SCH (10:55)
[2024-07-08] MEDS: normal saline 1000ml 1,000 ML IV SCH (13:03)
[2024-07-08] MEDS: EMPAGLIFLOZIN 10 MG TABLET PO SCH (13:03)
[2024-07-08] MEDS: metoprolol succinate 25mg (24-HOUR) SR. Tablet PO SCH (13:03)
[2024-07-08] MEDS: HYDROcodone/acetaminophen 5mg/325mg tablet PO PRN (13:11)
[2024-07-09 02:00] VITALS: BP 135/70; PULSE 50; RESP 18; TEMP 97.6; O2SAT 95
[2024-07-09] MEDS ORDERED: VANCOMYCIN LEVEL IV ONE (02:30)
[2024-07-09 06:00] VITALS: BP 126/68; PULSE 57; RESP 15; TEMP 97; O2SAT 96
[2024-07-09 08:00] VITALS: RESP 15; O2SAT 96
[2024-07-09 08:01] LABS: BASOPHILS # (AUTO) 0.1 X10'3 (0-0.2); BASOPHILS % (AUTO) 0.9 % (0-1); EOSINOPHILS # (AUTO) 0.2 X10'3 (0-0.9); EOSINOPHILS % (AUTO) 1.8 % (0-6); HEMATOCRIT 35.4 % (42.0-52.0); HEMOGLOBIN 11.6 g/dl (14.0-17.9); LYMPHOCYTES % (AUTO) 10.4 % (21-51); MEAN CORPUSCULAR HEMOGLOBIN 30.6 PG (27.0-31.0); MEAN CORPUSCULAR HGB CONC 32.9 g/dL (33.0-36.5); MEAN PLATELET VOLUME 8.4 FL (7.4-10.4); MONOCYTES # (AUTO) 0.9 X10'3 (0-0.9); MONOCYTES % (AUTO) 9.8 % (2-12); NEUTROPHILS # (AUTO) 7.3 X10'3 (1.8-7.7); NEUTROPHILS % (AUTO) 77.1 % (42-75); PLATELET COUNT 338 X10'3 (140-440); RED BLOOD COUNT 3.81 X10'6 (4.70-6.10); RED CELL DISTRIBUTION WIDTH 15.9 % (11.5-14.5); WHITE BLOOD COUNT 9.4 X10'3 (4.5-11.0)
[2024-07-09 08:10] LABS: APTT 32 SECONDS (22-32); INR 1.1 INR; PROTHROMBIN TIME 11.4 SECONDS (9.0-12.0)
[2024-07-09 08:30] LABS: ALANINE AMINOTRANSFERASE 23 U/L (12-78); ALBUMIN 2.9 G/DL (3.4-5.0); ALBUMIN/GLOBULIN RATIO 0.7 (1.1-1.5); ALKALINE PHOSPHATASE 94 IU/L (46-116); ANION GAP 12 (8-16); ASPARTATE AMINO TRANSFERASE 13 U/L (10-37); BILIRUBIN,TOTAL 0.5 MG/DL (0.1-1.0); BLOOD UREA NITROGEN 58 MG/DL (7-18); BUN/CREATININE RATIO 16.5 (10.0-20.0); CALCIUM 8.9 MG/DL (8.5-10.1); CHLORIDE 106 MMOL/L (99-107); CREATININE 3.51 MG/DL (0.60-1.10); GLUCOSE 100 MG/DL (70-104); LACTATE DEHYDROGENASE 181 U/L (85-227); PHOSPHORUS 4.2 MG/DL (2.3-4.5); POTASSIUM 4.2 MMOL/L (3.5-5.1); SODIUM 142 MMOL/L (135-145); TOTAL CARBON DIOXIDE 24.1 MMOL/L (24-32); eCRCL 22 ML/MIN; eGFR 18 ML/MIN
[2024-07-09 09:27] LABS: HIV ANTIBODY 1&2 RAPID NON-REACTIVE (Neg)
[2024-07-09] MEDS ORDERED: METO-395 PO (10:11)
[2024-07-09] MEDS ORDERED: FURO-150 PO (10:11)
[2024-07-09] MEDS ORDERED: LEVO750T68 PO (10:11)
[2024-07-09 11:00] VITALS: BP 127/69; PULSE 57; RESP 17; TEMP 97.1; O2SAT 98
[2024-07-09 12:26] VITALS: PULSE 63; RESP 18; O2SAT 92
== END 2024-07-09 12:59 | disposition home or self-care (01) | DRG 133 ==
LOC: ER 02:13 → ED HOLD 05:12 → PCU 3S 07-07 07:25
PROVIDERS: ADMIT Internal Medicine Sleep Medicine; ATTEND Internal Medicine
DX: J96.01 Acute respiratory failure with hypoxia (principal); I21.A1 Myocardial infarction type 2; I50.23 Acute on chronic systolic (congestive) heart failure; J18.9 Pneumonia, unspecified organism; I13.0 Hypertensive heart and chronic kidney disease with heart failure and stage 1 through stage 4 chronic kidney disease, or unspecified chronic kidney disease; N18.4 Chronic kidney disease, stage 4 (severe); I48.91 Unspecified atrial fibrillation; Z79.01 Long term (current) use of anticoagulants; J44.0 Chronic obstructive pulmonary disease with (acute) lower respiratory infection; G89.29 Other chronic pain; M54.9 Dorsalgia, unspecified; E03.9 Hypothyroidism, unspecified; J44.1 Chronic obstructive pulmonary disease with (acute) exacerbation; E78.00 Pure hypercholesterolemia, unspecified; F15.10 Other stimulant abuse, uncomplicated; Z20.822 Contact with and (suspected) exposure to COVID-19; Z91.148 Patient's other noncompliance with medication regimen for other reason; Z79.82 Long term (current) use of aspirin; Z79.899 Other long term (current) drug therapy
CPT/HCPCS: 36415; 71045; 80053; 81001; 82948; 83036; 83605; 83615; 83735; 83880; 83930; 84100; 84145; 84155; 84165; 84439; 84443; 84484; 85025; 85379; 85610; 85651; 85730; 86038; 86060; 86160; 86256; 86703; 87040; 87081; 87340; 87502; 87503; 87811; 93005; 93306; 94640; 94760; 99291; A4358; A4615; G0378; J0456; J0696; J1644; J1940; J2270; J2470; J2543; J2919; J3372; J3490; J7030; J7040

== ENCOUNTER 2024-07-18 17:56 | Emergency (ER) | payer MEDICAID ==
[~2024-07-18] VITALS: Ht 170.2 cm; Wt 79.5 kg
[~2024-07-18 17:56] MED LIST changes: -AMLO2.5T5 PO; +FURO-150 PO; -HYDR25TA90 PO; -SACU1TAB PO
[2024-07-18 20:00] LABS: BASOPHILS # (AUTO) 0.1 X10'3 (0-0.2); BASOPHILS % (AUTO) 1.3 % (0-1); EOSINOPHILS # (AUTO) 0.2 X10'3 (0-0.9); EOSINOPHILS % (AUTO) 2.8 % (0-6); HEMATOCRIT 34.4 % (42.0-52.0); HEMOGLOBIN 11.3 g/dl (14.0-17.9); LYMPHOCYTES # (AUTO) 0.9 X10'3 (1.1-4.8); LYMPHOCYTES % (AUTO) 13.4 % (21-51); MEAN CORPUSCULAR HEMOGLOBIN 30.4 PG (27.0-31.0); MEAN CORPUSCULAR VOLUME 92.2 FL (78-98); MEAN PLATELET VOLUME 7.5 FL (7.4-10.4); MONOCYTES # (AUTO) 0.5 X10'3 (0-0.9); MONOCYTES % (AUTO) 7.6 % (2-12); NEUTROPHILS # (AUTO) 5.1 X10'3 (1.8-7.7); NEUTROPHILS % (AUTO) 74.9 % (42-75); PLATELET COUNT 328 X10'3 (140-440); RED BLOOD COUNT 3.73 X10'6 (4.70-6.10); RED CELL DISTRIBUTION WIDTH 16.5 % (11.5-14.5); WHITE BLOOD COUNT 6.8 X10'3 (4.5-11.0)
[2024-07-18 20:29] LABS: ALBUMIN 3.4 G/DL (3.4-5.0); ANION GAP 13 (8-16); BLOOD UREA NITROGEN 52 MG/DL (7-18); BUN/CREATININE RATIO 16.5 (10.0-20.0); CALCIUM 10.5 MG/DL (8.5-10.1); CHLORIDE 105 MMOL/L (99-107); CREATININE 3.15 MG/DL (0.60-1.10); GLUCOSE 94 MG/DL (70-104); POTASSIUM 4.9 MMOL/L (3.5-5.1); SODIUM 141 MMOL/L (135-145); TOTAL CARBON DIOXIDE 23.3 MMOL/L (24-32); eCRCL 23 ML/MIN; eGFR 20 ML/MIN
[2024-07-18] MEDS ORDERED: APIX5TAB3 PO (20:55)
[2024-07-18] MEDS ORDERED: ATOR-429 PO (20:55)
[2024-07-18] MEDS ORDERED: ASPI81TA52 PO (20:55)
[2024-07-18] MEDS ORDERED: METO-539 PO (20:55)
[2024-07-18 21:02] LABS: PRO BRAIN NATRIURETIC PEPTIDE 15476 PG/ML (0-125)
[2024-07-18] MEDS: aspirin 81mg, enteric-coated 1 TAB TABLET.DR PO ONE (21:12)
[2024-07-18] MEDS: apixaban 5mg tablet PO ONE (21:12)
[2024-07-18] MEDS: atorvastatin 20mg tablet PO ONE (21:13)
[2024-07-18] MEDS: metoprolol succinate 25mg (24-HOUR) SR. Tablet PO ONE (21:14)
[2024-07-18] MEDS ORDERED: ONDA-243 PO (21:22)
[2024-07-18 21:50] VITALS: BP 152/108; PULSE 124; RESP 13; TEMP 98.7; O2SAT 97
== END 2024-07-18 23:52 | disposition home or self-care (01) ==
LOC: ER 17:56
DX: Z76.0 Encounter for issue of repeat prescription (principal); I48.91 Unspecified atrial fibrillation; I11.0 Hypertensive heart disease with heart failure; I50.9 Heart failure, unspecified; E78.00 Pure hypercholesterolemia, unspecified; J45.909 Unspecified asthma, uncomplicated; J44.9 Chronic obstructive pulmonary disease, unspecified; G89.29 Other chronic pain; M54.9 Dorsalgia, unspecified; F12.90 Cannabis use, unspecified, uncomplicated; Z72.89 Other problems related to lifestyle; Z88.8 Allergy status to other drugs, medicaments and biological substances; Z79.82 Long term (current) use of aspirin; Z79.899 Other long term (current) drug therapy
CPT/HCPCS: 36415; 71045; 80048; 83605; 83880; 84145; 85025; 87040; 93005; 99285

== ENCOUNTER 2024-07-21 21:06 | Emergency (ER) | payer MEDICAID ==
[~2024-07-21] VITALS: Ht 170.2 cm; Wt 79.5 kg
[~2024-07-21 21:06] MED LIST changes: +ASPI81TA52 PO; +ATOR-429 PO; +METO-539 PO; +ONDA-243 PO
[2024-07-21 22:28] LABS: BASOPHILS # (AUTO) 0.1 X10'3 (0-0.2); BASOPHILS % (AUTO) 0.9 % (0-1); EOSINOPHILS # (AUTO) 0.2 X10'3 (0-0.9); HEMATOCRIT 31.9 % (42.0-52.0); HEMOGLOBIN 10.4 g/dl (14.0-17.9); LYMPHOCYTES # (AUTO) 0.7 X10'3 (1.1-4.8); LYMPHOCYTES % (AUTO) 10.2 % (21-51); MEAN CORPUSCULAR HEMOGLOBIN 30.5 PG (27.0-31.0); MEAN CORPUSCULAR HGB CONC 32.7 g/dL (33.0-36.5); MEAN CORPUSCULAR VOLUME 93.2 FL (78-98); MEAN PLATELET VOLUME 7.3 FL (7.4-10.4); MONOCYTES # (AUTO) 0.5 X10'3 (0-0.9); MONOCYTES % (AUTO) 7.3 % (2-12); NEUTROPHILS # (AUTO) 5.4 X10'3 (1.8-7.7); NEUTROPHILS % (AUTO) 78.6 % (42-75); PLATELET COUNT 275 X10'3 (140-440); RED BLOOD COUNT 3.42 X10'6 (4.70-6.10); RED CELL DISTRIBUTION WIDTH 16.9 % (11.5-14.5); WHITE BLOOD COUNT 6.9 X10'3 (4.5-11.0)
[2024-07-21 22:38] LABS: ALBUMIN 3.3 G/DL (3.4-5.0); ANION GAP 8 (8-16); CALCIUM 10.3 MG/DL (8.5-10.1); CHLORIDE 107 MMOL/L (99-107); POTASSIUM 5.1 MMOL/L (3.5-5.1); SODIUM 142 MMOL/L (135-145); TOTAL CARBON DIOXIDE 26.6 MMOL/L (24-32)
[2024-07-21 22:48] LABS: BLOOD UREA NITROGEN 69 MG/DL (7-18); BUN/CREATININE RATIO 18.4 (10.0-20.0); CREATININE 3.76 MG/DL (0.60-1.10); GLUCOSE 121 MG/DL (70-104); eCRCL 20 ML/MIN; eGFR 17 ML/MIN
[2024-07-21] MEDS ORDERED: CLIN150C2 PO (23:10)
[2024-07-21] MEDS: ceFAZolin 1gm IM kit IM ONE (23:25)
[2024-07-21] MEDS: clindamycin 150mg capsule PO ONE (23:30)
[2024-07-21 23:34] VITALS: BP 128/91; PULSE 121; RESP 24; TEMP 98.5; O2SAT 93
[2024-07-21 23:46] LABS: BILIRUBIN,URINE NEGATIVE (Neg); CLARITY,URINE CLEAR (Clear); COLOR,URINE YELLOW (Yellow); GLUCOSE, URINE NEGATIVE (Neg); KETONES,URINE NEGATIVE (Neg); LEUKOCYTE ESTERASE ,URINE NEGATIVE (Neg); NITRITES, URINE NEGATIVE (Neg); OCCULT BLOOD,URINE NEGATIVE (Neg); PH,URINE 5.5 (4.8-8.0); PROTEIN,URINE 30 mg/dl (Neg); UROBILINOGEN,URINE 0.2 E.U/dL (0.2-1.0)
[2024-07-21 23:54] LABS: UA COLLECTION TYPE URINAL
[2024-07-21 23:58] LABS: BACTERIA,URINE FEW /HPF (Neg); RBC,URINE NONE SEEN /HPF (0-2); SQUAMOUS EPITHELIAL CELL,UR FEW /LPF (FEW)
[2024-07-21 23:59] LABS: WBC,URINE 0-4 /HPF (0-4)
== END 2024-07-21 23:35 | disposition home or self-care (01) ==
LOC: ER 21:07
DX: R78.81 Bacteremia (principal); L03.115 Cellulitis of right lower limb; I48.91 Unspecified atrial fibrillation; E78.00 Pure hypercholesterolemia, unspecified; G89.29 Other chronic pain; F12.90 Cannabis use, unspecified, uncomplicated; I11.0 Hypertensive heart disease with heart failure; I50.9 Heart failure, unspecified; J44.9 Chronic obstructive pulmonary disease, unspecified; Z88.8 Allergy status to other drugs, medicaments and biological substances; Z79.899 Other long term (current) drug therapy
CPT/HCPCS: 36415; 71045; 80048; 81001; 83605; 84145; 85025; 87040; 93005; 96372; 99285; J0690; J7030; A4615

== ENCOUNTER 2024-08-12 05:59 | Inpatient (IN) | payer MEDICAID ==
[~2024-08-12] VITALS: Ht 322.6 cm; Wt 77.3 kg
[2024-08-12 07:29] LABS: BASOPHILS # (AUTO) 0.1 X10'3 (0-0.2); BASOPHILS % (AUTO) 1.1 % (0-1); EOSINOPHILS # (AUTO) 0.2 X10'3 (0-0.9); HEMATOCRIT 32.3 % (42.0-52.0); HEMOGLOBIN 10.6 g/dl (14.0-17.9); LYMPHOCYTES # (AUTO) 0.8 X10'3 (1.1-4.8); LYMPHOCYTES % (AUTO) 15.9 % (21-51); MEAN CORPUSCULAR HEMOGLOBIN 30.1 PG (27.0-31.0); MEAN CORPUSCULAR HGB CONC 32.9 g/dL (33.0-36.5); MEAN CORPUSCULAR VOLUME 91.5 FL (78-98); MEAN PLATELET VOLUME 8.3 FL (7.4-10.4); MONOCYTES # (AUTO) 0.4 X10'3 (0-0.9); MONOCYTES % (AUTO) 8.6 % (2-12); NEUTROPHILS # (AUTO) 3.6 X10'3 (1.8-7.7); NEUTROPHILS % (AUTO) 70.4 % (42-75); PLATELET COUNT 222 X10'3 (140-440); RED BLOOD COUNT 3.53 X10'6 (4.70-6.10); RED CELL DISTRIBUTION WIDTH 17.4 % (11.5-14.5); WHITE BLOOD COUNT 5.1 X10'3 (4.5-11.0)
[2024-08-12 07:44] LABS: ALANINE AMINOTRANSFERASE 43 U/L (12-78); ALBUMIN 3.6 G/DL (3.4-5.0); ALKALINE PHOSPHATASE 132 IU/L (46-116); ANION GAP 13 (8-16); ASPARTATE AMINO TRANSFERASE 32 U/L (10-37); BILIRUBIN,TOTAL 1.1 MG/DL (0.1-1.0); BLOOD UREA NITROGEN 57 MG/DL (7-18); BUN/CREATININE RATIO 16.1 (10.0-20.0); CALCIUM 10.5 MG/DL (8.5-10.1); CHLORIDE 105 MMOL/L (99-107); CREATININE 3.54 MG/DL (0.60-1.10); GLUCOSE 100 MG/DL (70-104); SODIUM 142 MMOL/L (135-145); TOTAL CARBON DIOXIDE 23.8 MMOL/L (24-32); TOTAL PROTEIN 7.3 G/DL (6.4-8.2); eCRCL 21 ML/MIN; eGFR 18 ML/MIN
[2024-08-12 07:55] LABS: LIPASE 57 U/L (16-77); PRO BRAIN NATRIURETIC PEPTIDE 21974 PG/ML (0-125)
[2024-08-12] MEDS: metoprolol tartrate 50mg tablet PO ONE (08:36)
[2024-08-12] MEDS: ondansetron/PF 4mg/2ml inj IV ONE ×2 (08:36→11:12)
[2024-08-12] MEDS: mag hydrox/Alum hydrox/simeth 30ml oral suspension PO ONE (08:36)
[2024-08-12] MEDS: metoprolol tartrate 1mg/ml inj IV ONE ×2 (08:37→14:50)
[2024-08-12] MEDS: furosemide 10 MG/1 ML 10ml inj IV ONE (08:37)
[2024-08-12] MEDS: aspirin 81mg tab.chew PO ONE (08:38)
[2024-08-12] MEDS: nitroGLYCERIN 0.4mg/hour patch TD ONE (08:38)
[2024-08-12 10:00] LABS: BILIRUBIN,URINE NEGATIVE (Neg); CLARITY,URINE CLEAR (Clear); COLOR,URINE YELLOW (Yellow); GLUCOSE, URINE NEGATIVE (Neg); KETONES,URINE NEGATIVE (Neg); LEUKOCYTE ESTERASE ,URINE NEGATIVE (Neg); NITRITES, URINE NEGATIVE (Neg); OCCULT BLOOD,URINE TRACE-LYSED (Neg); PH,URINE 5.5 (4.8-8.0); PROTEIN,URINE >=300 mg/dl (Neg); UROBILINOGEN,URINE 0.2 E.U/dL (0.2-1.0)
[2024-08-12 10:36] LABS: UA COLLECTION TYPE CLN CATCH MIDSTREAM
[2024-08-12 10:40] LABS: WBC,URINE 0-4 /HPF (0-4)
[2024-08-12 10:41] LABS: BACTERIA,URINE NONE SEEN /HPF (Neg)
[2024-08-12 10:42] LABS: RBC,URINE 0-2 /HPF (0-2)
[2024-08-12 10:44] LABS: SQUAMOUS EPITHELIAL CELL,UR FEW /LPF (FEW)
[2024-08-12] MEDS: diltiazem 5mg/ml 5ml inj. IV ONE (11:02)
[2024-08-12] MEDS ORDERED: magnesium Cl slow-release 64mg tablet PO PRN (11:10)
[2024-08-12] MEDS ORDERED: mag hydrox/Alum hydrox/simeth 30ml oral suspension PO PRN (11:10)
[2024-08-12] MEDS ORDERED: acetaminophen 325mg tablet PO PRN ×2 (11:10)
[2024-08-12] MEDS ORDERED: magnesium hydroxide 30ml (MOM) UD suspension PO PRN (11:10)
[2024-08-12] MEDS ORDERED: magnesium sulf-water 2g/50mL 50 ML IV PRN (11:10)
[2024-08-12] MEDS ORDERED: magnesium sulf-water 4G/100mL 100 ML IV PRN (11:10)
[2024-08-12] MEDS ORDERED: potassium Cl 40MEQ/1/2NS 520ml 520 ML IV PRN (11:10)
[2024-08-12] MEDS ORDERED: potassium Cl 20 mEq SR tablet PO PRN ×2 (11:10)
[2024-08-12] MEDS ORDERED: HYDROcodone/acetaminophen 10/325mg tab PO PRN (11:10)
[2024-08-12] MEDS: diphenhydrAMINE 50 mg/ml inj IV ONE (11:12)
[2024-08-12 12:14] LABS: ABG BASE EXCESS -2.9 mmol/L (-2.0-3.0); ABG HCO3 21.5 mmol/L (21.0-28.0); ABG OXYGEN SATURATION 92.1 % (94.0-98.0); ABG PCO2 (T) 35.8 mmHg (35.0-48.0); ABG PH (T) 7.395 (7.350-7.450); ABG PO2 (T) 66.4 mmHg (83.0-108.0); ALLEN'S TEST POSITIVE; FCOHb 0.3 % (0.5-1.5); FHHb 7.9 % (0.0-5.0); FMetHb 0.3 % (0.0-1.5); FO2Hb 91.5 % (94.0-98.0); MODE ROOM AIR; PATIENT TEMPERATURE 36.7; TOTAL HEMOGLOBIN 11.1 G/dl (13.5-17.5)
[2024-08-12] MEDS: CefTRIAXone 2gm/D5W 50ml BAG 50 ML IV ONE (14:46)
[2024-08-12] MEDS: azithromycin/NS 500mg/250ml 250 ML IV ONE (14:47)
[2024-08-12] MEDS: IOHEXOL 12MG/ML oral solution 500 ML BOTTLE PO ONE (14:50)
[2024-08-12] MEDS: metoprolol tartrate 1mg/ml inj IV STA (16:43)
[2024-08-12 17:30] VITALS: BP 144/100; PULSE 115; RESP 17; TEMP 97.6; O2SAT 93
[2024-08-12 18:00] VITALS: BP 129/83; PULSE 111; RESP 18; TEMP 97.8; O2SAT 96
[2024-08-12 18:58] VITALS: RESP 17; O2SAT 93
[2024-08-12 20:00] VITALS: RESP 18; O2SAT 96
[2024-08-12] MEDS: K and/or MAG REPLACEMENT MC SCH (20:00)
[2024-08-12] MEDS ORDERED: metoprolol tartrate 1mg/ml inj IV SCH (20:00)
[2024-08-12] MEDS: docusate sod 100mg capsule PO SCH (20:59)
[2024-08-12] MEDS: apixaban 5mg tablet PO SCH (20:59)
[2024-08-12] MEDS ORDERED: IOHEXOL 12MG/ML oral solution 1,000 ML BOTTLE-COMPOUND-RX PO PRN (21:00)
[2024-08-12] MEDS: diatr meglu/diatrizoate 30ml oral sol.-(3 dose) bottle PO SCH (21:00)
[2024-08-12] MEDS: furosemide 40mg/4ml inj IV SCH (21:00)
[2024-08-12] MEDS: metoprolol tartrate 1mg/ml inj IV SCH (21:27)
[2024-08-12 22:00] VITALS: BP 129/80; PULSE 117; RESP 14; TEMP 97.7; O2SAT 91
[2024-08-13] VITALS (12 sets, daily range): BP systolic 131–152; BP diastolic 87–107; PULSE 99–117; RESP 13–17; TEMP 96.9–97.9; O2SAT 90–100
[2024-08-13] MEDS: HYDROcodone/acetaminophen 5mg/325mg tablet PO PRN (00:21)
[2024-08-13 07:35] LABS: BASOPHILS # (AUTO) 0.1 X10'3 (0-0.2); BASOPHILS % (AUTO) 1.4 % (0-1); EOSINOPHILS # (AUTO) 0.2 X10'3 (0-0.9); EOSINOPHILS % (AUTO) 4.7 % (0-6); HEMATOCRIT 33.1 % (42.0-52.0); HEMOGLOBIN 10.8 g/dl (14.0-17.9); LYMPHOCYTES # (AUTO) 0.8 X10'3 (1.1-4.8); LYMPHOCYTES % (AUTO) 17.8 % (21-51); MEAN CORPUSCULAR HEMOGLOBIN 29.3 PG (27.0-31.0); MEAN CORPUSCULAR HGB CONC 32.5 g/dL (33.0-36.5); MEAN PLATELET VOLUME 8.3 FL (7.4-10.4); MONOCYTES # (AUTO) 0.5 X10'3 (0-0.9); MONOCYTES % (AUTO) 11.5 % (2-12); NEUTROPHILS # (AUTO) 2.8 X10'3 (1.8-7.7); NEUTROPHILS % (AUTO) 64.6 % (42-75); PLATELET COUNT 233 X10'3 (140-440); RED BLOOD COUNT 3.68 X10'6 (4.70-6.10); RED CELL DISTRIBUTION WIDTH 17.4 % (11.5-14.5); WHITE BLOOD COUNT 4.3 X10'3 (4.5-11.0)
[2024-08-13 07:49] LABS: D-DIMER 0.46 MG/L FEU (0-0.50)
[2024-08-13] MEDS ORDERED: metoprolol succinate 25mg (24-HOUR) SR. Tablet PO SCH (08:00)
[2024-08-13] MEDS ORDERED: diltiazem-NS 100mg/100ml 100 ML IV SCH (08:00)
[2024-08-13 08:02] LABS: ALANINE AMINOTRANSFERASE 38 U/L (12-78); ALBUMIN 3.4 G/DL (3.4-5.0); ALKALINE PHOSPHATASE 136 IU/L (46-116); ANION GAP 13 (8-16); ASPARTATE AMINO TRANSFERASE 30 U/L (10-37); BILIRUBIN,TOTAL 0.8 MG/DL (0.1-1.0); BLOOD UREA NITROGEN 65 MG/DL (7-18); BUN/CREATININE RATIO 16.7 (10.0-20.0); CHLORIDE 103 MMOL/L (99-107); FREE T4 (FREE THYROXINE) 0.52 NG/DL (0.73-1.40); GLUCOSE 87 MG/DL (70-104); MAGNESIUM 2.3 MG/DL (1.5-2.4); POTASSIUM 4.6 MMOL/L (3.5-5.1); SODIUM 141 MMOL/L (135-145); TOTAL CARBON DIOXIDE 25.4 MMOL/L (24-32); TOTAL PROTEIN 6.9 G/DL (6.4-8.2); eCRCL 22 ML/MIN; eGFR 16 ML/MIN
[2024-08-13] MEDS: ipratropium 0.5 MG/2.5ML nebule IH SCH (08:19)
[2024-08-13] MEDS: CefTRIAXone 2gm/D5W 50ml BAG 50 ML IV SCH (08:51)
[2024-08-13 09:00] LABS: PRO BRAIN NATRIURETIC PEPTIDE 20655 PG/ML (0-125)
[2024-08-13] MEDS: azithromycin/NS 500mg/250ml 250 ML IV SCH (09:36)
[2024-08-13] MEDS: amiodarone 200mg tablet PO SCH (09:36)
[2024-08-13] MEDS: ondansetron/PF 4mg/2ml inj IV PRN (09:39)
[2024-08-13] MEDS ORDERED: FLU VACC TS2024-25(6MOS UP)/PF 45 MCG/0.5 ML SYRINGE IMVAC ONE (10:00)
[2024-08-13] MEDS ORDERED: pneumococcal 23-VAL P-sac vacc 25 mcg/0.5ml vial IMVAC ONE (10:00)
[2024-08-13] MEDS ORDERED: metoclopramide 5 mg/ml inj IV PRN (10:45)
[2024-08-13] MEDS: normal saline 500ml IV soln 500 ML IV ONE (11:45)
[2024-08-13] MEDS: digoxin 250mcg/ml 2ml ampule IV ONE (12:54)
[2024-08-13] MEDS: pantoprazole 40 MG vial IV ONE (12:56)
[2024-08-13] MEDS: LEVOTHYROXINE SODIUM 100 MCG/5 ML injection IV ONE (15:10)
[2024-08-13] MEDS: LORazepam 2 mg/ml vial IV SCH (15:24)
[2024-08-13] MEDS: pantoprazole 40 MG vial IV SCH (20:55)
[2024-08-13] MEDS ORDERED: LORazepam 2 mg/ml vial IV PRN (21:25)
[2024-08-14] MEDS: digoxin 250mcg/ml 2ml ampule IV ONE (00:21)
[2024-08-14 02:00] VITALS: BP 121/77; PULSE 79; RESP 14; TEMP 97.7; O2SAT 94
[2024-08-14 02:54] VITALS: PULSE 61; RESP 15; O2SAT 94
[2024-08-14] MEDS: ipratropium 0.5 MG/2.5ML nebule IH SCH (02:54)
[2024-08-14 02:58] VITALS: PULSE 64; RESP 15
[2024-08-14 06:00] VITALS: BP 123/59; PULSE 91; RESP 19; TEMP 97.4; O2SAT 93
[2024-08-14 06:41] LABS: BASOPHILS # (AUTO) 0.1 X10'3 (0-0.2); EOSINOPHILS # (AUTO) 0.2 X10'3 (0-0.9); EOSINOPHILS % (AUTO) 2.6 % (0-6); HEMATOCRIT 34.4 % (42.0-52.0); HEMOGLOBIN 11.3 g/dl (14.0-17.9); LYMPHOCYTES # (AUTO) 0.6 X10'3 (1.1-4.8); LYMPHOCYTES % (AUTO) 9.3 % (21-51); MEAN CORPUSCULAR HEMOGLOBIN 29.3 PG (27.0-31.0); MEAN CORPUSCULAR HGB CONC 32.7 g/dL (33.0-36.5); MEAN CORPUSCULAR VOLUME 89.6 FL (78-98); MEAN PLATELET VOLUME 7.9 FL (7.4-10.4); MONOCYTES # (AUTO) 0.6 X10'3 (0-0.9); MONOCYTES % (AUTO) 10.1 % (2-12); NEUTROPHILS # (AUTO) 4.8 X10'3 (1.8-7.7); PLATELET COUNT 221 X10'3 (140-440); RED BLOOD COUNT 3.84 X10'6 (4.70-6.10); RED CELL DISTRIBUTION WIDTH 17.2 % (11.5-14.5); WHITE BLOOD COUNT 6.3 X10'3 (4.5-11.0)
[2024-08-14 07:08] LABS: ALANINE AMINOTRANSFERASE 34 U/L (12-78); ALBUMIN 3.1 G/DL (3.4-5.0); ALBUMIN/GLOBULIN RATIO 0.9 (1.1-1.5); ALKALINE PHOSPHATASE 114 IU/L (46-116); ANION GAP 11 (8-16); ASPARTATE AMINO TRANSFERASE 22 U/L (10-37); BILIRUBIN,TOTAL 0.9 MG/DL (0.1-1.0); BLOOD UREA NITROGEN 63 MG/DL (7-18); BUN/CREATININE RATIO 16.5 (10.0-20.0); CALCIUM 9.5 MG/DL (8.5-10.1); CHLORIDE 106 MMOL/L (99-107); CREATININE 3.82 MG/DL (0.60-1.10); GLUCOSE 74 MG/DL (70-104); MAGNESIUM 2.2 MG/DL (1.5-2.4); POTASSIUM 4.3 MMOL/L (3.5-5.1); SODIUM 143 MMOL/L (135-145); TOTAL CARBON DIOXIDE 25.9 MMOL/L (24-32); TOTAL PROTEIN 6.4 G/DL (6.4-8.2); eCRCL 22 ML/MIN; eGFR 16 ML/MIN
[2024-08-14 08:09] VITALS: PULSE 81; RESP 16; O2SAT 91
[2024-08-14] MEDS: nicotine 14mg patch - 24hr TD SCH (08:53)
[2024-08-14] MEDS: metoprolol tartrate 50mg tablet PO SCH (08:58)
[2024-08-14] MEDS: levoTHYROXINE 75mcg tablet PO SCH (08:59)
[2024-08-14 10:00] VITALS: BP 153/86; PULSE 93; RESP 26; TEMP 97.2; O2SAT 94
[2024-08-14] MEDS ORDERED: LEVO75TA7 PO (11:20)
[2024-08-14] MEDS ORDERED: ALBU90AE INH (11:20)
[2024-08-14] MEDS ORDERED: METO50TA16 PO (11:20)
[2024-08-14] MEDS ORDERED: FLUT1DIS4 INH (11:20)
[2024-08-14] MEDS ORDERED: LEVO750T68 PO (11:20)
== END 2024-08-14 15:20 | disposition home or self-care (01) | DRG 133 ==
LOC: ER 05:59 → ED HOLD 11:12 → PCU 3S 17:28
PROVIDERS: ADMIT Nurse Practitioner Family; ATTEND Nurse Practitioner Family
PROC: CB121ZZ Planar Nuclear Medicine Imaging of Lungs and Bronchi using Technetium 99m (Tc-99m) (ICD-10-PCS; principal; 2024-08-13)
PROC: 3E02340 Introduction of Influenza Vaccine into Muscle, Percutaneous Approach (ICD-10-PCS; 2024-08-13)
DX: J96.01 Acute respiratory failure with hypoxia (principal); I50.23 Acute on chronic systolic (congestive) heart failure; J18.9 Pneumonia, unspecified organism; I95.9 Hypotension, unspecified; I13.0 Hypertensive heart and chronic kidney disease with heart failure and stage 1 through stage 4 chronic kidney disease, or unspecified chronic kidney disease; I48.92 Unspecified atrial flutter; J44.0 Chronic obstructive pulmonary disease with (acute) lower respiratory infection; N18.4 Chronic kidney disease, stage 4 (severe); I48.91 Unspecified atrial fibrillation; E78.00 Pure hypercholesterolemia, unspecified; G89.29 Other chronic pain; M54.9 Dorsalgia, unspecified; Z88.8 Allergy status to other drugs, medicaments and biological substances; Z79.82 Long term (current) use of aspirin; Z79.899 Other long term (current) drug therapy; Z89.512 Acquired absence of left leg below knee; Z79.01 Long term (current) use of anticoagulants; Z87.891 Personal history of nicotine dependence; Z23 Encounter for immunization
CPT/HCPCS: 36415; 36600; 71045; 74176; 76700; 78582; 80053; 81001; 82803; 82948; 83605; 83690; 83735; 83880; 84145; 84439; 84443; 84484; 85018; 85025; 85379; 87081; 87502; 87503; 93005; 94640; 94760; 97116; 97161; 97530; 99285; A9539; A9540; G0378; J0456; J0696; J1160; J1200; J1940; J2060; J2405; J2470; J3490; J7030; J7040

== ENCOUNTER 2024-09-16 18:30 | Emergency (ER) | payer MEDICAID ==
[~2024-09-16] VITALS: Ht 170.2 cm; Wt 75.7 kg
[~2024-09-16 18:30] MED LIST changes: +ALBU90AE INH; -ASPI81TA52 PO; -ATOR-429 PO; +FLUT1DIS4 INH; -LEVO750T68 PO; -METO-395 PO; -METO-539 PO; +METO50TA16 PO
[2024-09-16 20:33] LABS: EOSINOPHILS # (AUTO) 0.1 X10'3 (0-0.9); EOSINOPHILS % (AUTO) 2.7 % (0-6); HEMATOCRIT 31.1 % (42.0-52.0); HEMOGLOBIN 9.9 g/dl (14.0-17.9); LYMPHOCYTES # (AUTO) 0.6 X10'3 (1.1-4.8); LYMPHOCYTES % (AUTO) 12.4 % (21-51); MEAN CORPUSCULAR HEMOGLOBIN 27.6 PG (27.0-31.0); MEAN CORPUSCULAR HGB CONC 31.8 g/dL (33.0-36.5); MEAN CORPUSCULAR VOLUME 86.8 FL (78-98); MEAN PLATELET VOLUME 7.8 FL (7.4-10.4); MONOCYTES # (AUTO) 0.5 X10'3 (0-0.9); MONOCYTES % (AUTO) 10.1 % (2-12); NEUTROPHILS # (AUTO) 3.6 X10'3 (1.8-7.7); NEUTROPHILS % (AUTO) 73.8 % (42-75); PLATELET COUNT 199 X10'3 (140-440); RED BLOOD COUNT 3.59 X10'6 (4.70-6.10); RED CELL DISTRIBUTION WIDTH 17.8 % (11.5-14.5); WHITE BLOOD COUNT 4.9 X10'3 (4.5-11.0)
[2024-09-16 20:40] LABS: ALBUMIN 3.4 G/DL (3.4-5.0); ANION GAP 7 (8-16); BLOOD UREA NITROGEN 54 MG/DL (7-18); BUN/CREATININE RATIO 15.1 (10.0-20.0); CALCIUM 10.4 MG/DL (8.5-10.1); CHLORIDE 103 MMOL/L (99-107); CREATININE 3.58 MG/DL (0.60-1.10); GLUCOSE 105 MG/DL (70-104); MAGNESIUM 2.2 MG/DL (1.5-2.4); POTASSIUM 5.2 MMOL/L (3.5-5.1); SODIUM 137 MMOL/L (135-145); TOTAL CARBON DIOXIDE 27.4 MMOL/L (24-32); eCRCL 21 ML/MIN; eGFR 17 ML/MIN
[2024-09-16 21:52] LABS: FREE T4 (FREE THYROXINE) 1.03 NG/DL (0.73-1.40)
[2024-09-16 21:56] LABS: THYROID STIMULATING HORMONE 61.72 ulU/ml (0.34-4.50)
[2024-09-16] MEDS: oxyCODONE SR 10mg (sust. release) tab PO ONE (21:58)
[2024-09-16 22:08] LABS: BILIRUBIN,URINE NEGATIVE (Neg); CLARITY,URINE CLEAR (Clear); COLOR,URINE YELLOW (Yellow); GLUCOSE, URINE NEGATIVE (Neg); KETONES,URINE NEGATIVE (Neg); LEUKOCYTE ESTERASE ,URINE NEGATIVE (Neg); NITRITES, URINE NEGATIVE (Neg); OCCULT BLOOD,URINE NEGATIVE (Neg); PROTEIN,URINE 100 mg/dl (Neg); UROBILINOGEN,URINE 0.2 E.U/dL (0.2-1.0)
[2024-09-16 22:17] LABS: UA COLLECTION TYPE CLN CATCH MIDSTREAM
[2024-09-16 22:18] LABS: BACTERIA,URINE NONE SEEN /HPF (Neg); RBC,URINE NONE SEEN /HPF (0-2); SQUAMOUS EPITHELIAL CELL,UR FEW /LPF (FEW); WBC,URINE 0-4 /HPF (0-4)
[2024-09-16 22:45] VITALS: BP 156/109; PULSE 111; RESP 20; TEMP 97.4; O2SAT 96
== END 2024-09-16 22:50 | disposition home or self-care (01) ==
LOC: ER 18:32
DX: Z71.1 Person with feared health complaint in whom no diagnosis is made (principal); E07.9 Disorder of thyroid, unspecified; I48.91 Unspecified atrial fibrillation; E78.00 Pure hypercholesterolemia, unspecified; I11.0 Hypertensive heart disease with heart failure; I50.9 Heart failure, unspecified; G89.29 Other chronic pain; M54.9 Dorsalgia, unspecified; J45.909 Unspecified asthma, uncomplicated; J44.9 Chronic obstructive pulmonary disease, unspecified; Z72.89 Other problems related to lifestyle; F12.90 Cannabis use, unspecified, uncomplicated; Z88.8 Allergy status to other drugs, medicaments and biological substances; Z79.82 Long term (current) use of aspirin; Z79.899 Other long term (current) drug therapy; Z79.52 Long term (current) use of systemic steroids; Z20.822 Contact with and (suspected) exposure to COVID-19
CPT/HCPCS: 36415; 71045; 80048; 81001; 83605; 83735; 84145; 84439; 84443; 85025; 87040; 87502; 87503; 87811; 93005; 99285

== ENCOUNTER 2024-09-18 12:40 | Emergency (ER) | payer MEDICAID ==
[~2024-09-18] VITALS: Ht 170.2 cm; Wt 73.0 kg
[2024-09-18 13:25] LABS: BASOPHILS % (AUTO) 0.7 % (0-1); EOSINOPHILS # (AUTO) 0.1 X10'3 (0-0.9); EOSINOPHILS % (AUTO) 2.6 % (0-6); HEMATOCRIT 30.7 % (42.0-52.0); HEMOGLOBIN 9.9 g/dl (14.0-17.9); LYMPHOCYTES # (AUTO) 0.7 X10'3 (1.1-4.8); LYMPHOCYTES % (AUTO) 12.4 % (21-51); MEAN CORPUSCULAR HEMOGLOBIN 28.1 PG (27.0-31.0); MEAN CORPUSCULAR HGB CONC 32.2 g/dL (33.0-36.5); MEAN CORPUSCULAR VOLUME 87.2 FL (78-98); MEAN PLATELET VOLUME 8.2 FL (7.4-10.4); MONOCYTES # (AUTO) 0.5 X10'3 (0-0.9); MONOCYTES % (AUTO) 9.4 % (2-12); NEUTROPHILS # (AUTO) 4.3 X10'3 (1.8-7.7); NEUTROPHILS % (AUTO) 74.9 % (42-75); PLATELET COUNT 207 X10'3 (140-440); RED BLOOD COUNT 3.53 X10'6 (4.70-6.10); RED CELL DISTRIBUTION WIDTH 17.8 % (11.5-14.5); WHITE BLOOD COUNT 5.7 X10'3 (4.5-11.0)
[2024-09-18 13:45] LABS: ALBUMIN 3.4 G/DL (3.4-5.0); ANION GAP 9 (8-16); BLOOD UREA NITROGEN 61 MG/DL (7-18); BUN/CREATININE RATIO 18.3 (10.0-20.0); CALCIUM 11.1 MG/DL (8.5-10.1); CHLORIDE 104 MMOL/L (99-107); CREATININE 3.34 MG/DL (0.60-1.10); GLUCOSE 104 MG/DL (70-104); MAGNESIUM 2.2 MG/DL (1.5-2.4); POTASSIUM 5.4 MMOL/L (3.5-5.1); PRO BRAIN NATRIURETIC PEPTIDE 14788 PG/ML (0-125); SODIUM 141 MMOL/L (135-145); eCRCL 22 ML/MIN; eGFR 19 ML/MIN
[2024-09-18 13:54] LABS: ETHANOL < 10 MG/DL (<10)
[2024-09-18 14:07] LABS: APTT 30 SECONDS (22-32); INR 1.2 INR; PROTHROMBIN TIME 12.8 SECONDS (9.0-12.0)
[2024-09-18 14:23] LABS: URINE AMPHETAMINE SCREEN POSITIVE (Neg); URINE BARBITUATE SCREEN NEGATIVE (Neg); URINE BENZODIAZEPINES SCREEN NEGATIVE (Neg); URINE CANNABINOID SCREEN NEGATIVE (Neg); URINE COCAINE SCREEN NEGATIVE (Neg); URINE METHADONE SCREEN NEGATIVE (Neg); URINE OPIATE SCREEN NEGATIVE (Neg); URINE PHENCYCLIDINE SCREEN NEGATIVE (Neg)
[2024-09-18] MEDS: metoprolol tartrate 50mg tablet PO ONE (14:26)
[2024-09-18] MEDS: metoprolol tartrate 1mg/ml inj IV SCH (14:27)
[2024-09-18] MEDS ORDERED: METO50TA16 PO (14:40)
[2024-09-18] MEDS ORDERED: AMIO200T27 PO (14:40)
[2024-09-18] MEDS: dexamethasone 4mg tablet PO ONE (14:40)
[2024-09-18] MEDS ORDERED: ALBU90AE INH (14:40)
[2024-09-18 15:14] VITALS: BP 152/111; PULSE 116; RESP 20; TEMP 98.1; O2SAT 96
== END 2024-09-18 15:46 | disposition home or self-care (01) ==
LOC: ER 12:41
DX: J44.1 Chronic obstructive pulmonary disease with (acute) exacerbation (principal); I13.0 Hypertensive heart and chronic kidney disease with heart failure and stage 1 through stage 4 chronic kidney disease, or unspecified chronic kidney disease; I50.9 Heart failure, unspecified; N18.4 Chronic kidney disease, stage 4 (severe); Z88.8 Allergy status to other drugs, medicaments and biological substances; E78.00 Pure hypercholesterolemia, unspecified; G89.29 Other chronic pain; I48.91 Unspecified atrial fibrillation; Z79.899 Other long term (current) drug therapy
CPT/HCPCS: 36415; 71045; 80048; 80305; 80320; 83605; 83735; 83880; 84484; 85025; 85610; 85730; 87040; 93005; 96374; 96376; 99285; J3490

== ENCOUNTER 2024-09-24 20:26 | Inpatient (IN) | payer MEDICAID ==
[~2024-09-24] VITALS: Ht 170.2 cm; Wt 68.9 kg
[~2024-09-24 20:26] MED LIST changes: +atropine 0.1mg/ml 10ml syringe ONE
[2024-09-24 21:03] LABS: HEMOGLOBIN 11.4 g/dl (14.0-17.9); MEAN PLATELET VOLUME 8.8 FL (7.4-10.4); NEUTROPHILS # (AUTO) 7.2 X10'3 (1.8-7.7); WHITE BLOOD COUNT 9.4 X10'3 (4.5-11.0)
[2024-09-24 21:04] LABS: BASOPHILS % (AUTO) 0.4 % (0-1); EOSINOPHILS % (AUTO) 0.4 % (0-6); HEMATOCRIT 36.7 % (42.0-52.0); LYMPHOCYTES # (AUTO) 1.1 X10'3 (1.1-4.8); LYMPHOCYTES % (AUTO) 11.2 % (21-51); MEAN CORPUSCULAR HEMOGLOBIN 26.9 PG (27.0-31.0); MEAN CORPUSCULAR VOLUME 86.9 FL (78-98); MONOCYTES % (AUTO) 10.8 % (2-12); NEUTROPHILS % (AUTO) 77.2 % (42-75); PLATELET COUNT 342 X10'3 (140-440); RED BLOOD COUNT 4.22 X10'6 (4.70-6.10)
[2024-09-24 21:08] LABS: ALANINE AMINOTRANSFERASE 549 U/L (12-78); ALBUMIN 3.3 G/DL (3.4-5.0); ALBUMIN/GLOBULIN RATIO 0.9 (1.1-1.5); ALKALINE PHOSPHATASE 414 IU/L (46-116); ANION GAP 15 (8-16); ASPARTATE AMINO TRANSFERASE 551 U/L (10-37); BILIRUBIN,TOTAL 2.8 MG/DL (0.1-1.0); BLOOD UREA NITROGEN 94 MG/DL (7-18); BUN/CREATININE RATIO 20.4 (10.0-20.0); CALCIUM 9.6 MG/DL (8.5-10.1); CHLORIDE 98 MMOL/L (99-107); CREATININE 4.61 MG/DL (0.60-1.10); GLUCOSE 120 MG/DL (70-104); LIPASE 69 U/L (16-77); SODIUM 135 MMOL/L (135-145); TOTAL CARBON DIOXIDE 22.3 MMOL/L (24-32); TOTAL PROTEIN 6.9 G/DL (6.4-8.2); eCRCL 16 ML/MIN; eGFR 13 ML/MIN
[2024-09-24 21:25] LABS: NUCLEATED RED BLOOD CELLS 1 /100WBC (0-0); TOTAL CELLS COUNTED 100
[2024-09-24 21:26] LABS: ANISOCYTOSIS 2+; BURR CELLS 1+; ELLIPTOCYTES 1+; PLATELET ESTIMATE NORMAL; POIKILOCYTOSIS 1+; POLYCHROMASIA FEW
[2024-09-24 21:35] LABS: POTASSIUM 7.1 MMOL/L (3.5-5.1)
[2024-09-24 22:06] LABS: CREATINE KINASE 249 U/L (39-308); MAGNESIUM 2.7 MG/DL (1.5-2.4)
[2024-09-24 22:09] LABS: PRO BRAIN NATRIURETIC PEPTIDE > 30000 PG/ML (0-125)
[2024-09-24] MEDS: albuterol 2.5 MG/3 ML nebule CONTNEB ONE (22:09)
[2024-09-24 22:14] VITALS: PULSE 74; RESP 19
[2024-09-24] MEDS: ringers solution, lacted 1,000 ML IV ONE (22:17)
[2024-09-24] MEDS ORDERED: FURO20TA4 PO (22:49)
[2024-09-24] MEDS ORDERED: AMI200T PO (22:49)
[2024-09-24] MEDS: LidoCAINE 2% Topical Jelly 11mL syringe (UROJET) TOP ONE ×2 (22:52→23:27)
[2024-09-24] MEDS: DEXTROSE 10 % AND 0.45 % NACL 1,000 ML IV ONE (23:04)
[2024-09-24] MEDS: glucagon, human recombinant 1mg kit IV ONE (23:05)
[2024-09-24 23:14] LABS: BILIRUBIN,URINE NEGATIVE (Neg); CLARITY,URINE CLEAR (Clear); COLOR,URINE YELLOW (Yellow); GLUCOSE, URINE NEGATIVE (Neg); KETONES,URINE NEGATIVE (Neg); LEUKOCYTE ESTERASE ,URINE NEGATIVE (Neg); NITRITES, URINE NEGATIVE (Neg); OCCULT BLOOD,URINE NEGATIVE (Neg); PROTEIN,URINE 100 mg/dl (Neg); UROBILINOGEN,URINE 0.2 E.U/dL (0.2-1.0)
[2024-09-24] MEDS ORDERED: morphine 4 MG/ML inj SYRINge IV PRN (23:20)
[2024-09-24] MEDS ORDERED: morphine 2 MG/ML inj. syringe IV PRN (23:20)
[2024-09-24] MEDS ORDERED: acetaminophen 325mg tablet PO PRN (23:20)
[2024-09-24] MEDS ORDERED: magnesium hydroxide 30ml (MOM) UD suspension PO PRN (23:20)
[2024-09-24] MEDS ORDERED: ondansetron/PF 4mg/2ml inj IV PRN (23:20)
[2024-09-24 23:21] LABS: UA COLLECTION TYPE FOLEY CATH
[2024-09-24 23:23] LABS: BACTERIA,URINE 1+ /HPF (Neg); RBC,URINE NONE SEEN /HPF (0-2); SQUAMOUS EPITHELIAL CELL,UR MODERATE /LPF (FEW); WBC,URINE 0-4 /HPF (0-4)
[2024-09-24 23:41] LABS: SODIUM,URINE RANDOM < 15 MEQ/L; TOTAL PROTEIN,URINE RANDOM 119.8 MG/DL; URINE AMPHETAMINE SCREEN POSITIVE (Neg); URINE BARBITUATE SCREEN NEGATIVE (Neg); URINE BENZODIAZEPINES SCREEN NEGATIVE (Neg); URINE CANNABINOID SCREEN NEGATIVE (Neg); URINE COCAINE SCREEN NEGATIVE (Neg); URINE METHADONE SCREEN NEGATIVE (Neg); URINE OPIATE SCREEN NEGATIVE (Neg); URINE PHENCYCLIDINE SCREEN NEGATIVE (Neg)
[2024-09-24] MEDS: furosemide 10 MG/1 ML 10ml inj IV ONE (23:44)
[2024-09-24 23:52] LABS: ALANINE AMINOTRANSFERASE 699 U/L (12-78); ALBUMIN/GLOBULIN RATIO 0.9 (1.1-1.5); ALKALINE PHOSPHATASE 395 IU/L (46-116); ANION GAP 19 (8-16); ASPARTATE AMINO TRANSFERASE 745 U/L (10-37); BILIRUBIN,TOTAL 2.6 MG/DL (0.1-1.0); BLOOD UREA NITROGEN 95 MG/DL (7-18); BUN/CREATININE RATIO 21.1 (10.0-20.0); CALCIUM 10.6 MG/DL (8.5-10.1); CHLORIDE 99 MMOL/L (99-107); CREATININE 4.51 MG/DL (0.60-1.10); GLUCOSE 193 MG/DL (70-104); SODIUM 137 MMOL/L (135-145); TOTAL CARBON DIOXIDE 19.3 MMOL/L (24-32); TOTAL PROTEIN 6.5 G/DL (6.4-8.2); eCRCL 16 ML/MIN; eGFR 13 ML/MIN
[2024-09-24] MEDS: sodium bicarbonate (8.4%) inj. 100 MEQ in dextrose 5%-water 1,000 ML IV ONE (23:55)
[2024-09-24] MEDS: SODIUM ZIRCONIUM CYCLOSILICATE 10 GM POWD.PACK PO SCH (23:55)
[2024-09-25] VITALS (29 sets, daily range): BP systolic 112–165; BP diastolic 64–94; PULSE 62–74; RESP 12–22; TEMP 97.3–98.4; O2SAT 94–100
[2024-09-25 00:01] LABS: POTASSIUM 6.9 MMOL/L (3.5-5.1)
[2024-09-25] MEDS: LIDOcaine 1% W/epiNEPHrine 1:100,000 20ml vial SQ STA ×2 (00:45→01:24)
[2024-09-25] MEDS: mannitol 12.5gm/50mL VIAL IV ONE (03:48)
[2024-09-25] MEDS: heparin 1,000 units/ml 10ml inj HE ONE ×2 (03:54→03:55)
[2024-09-25 05:24] LABS: ABG BASE EXCESS 0.7 mmol/L (-2.0-3.0); ABG HCO3 24.5 mmol/L (21.0-28.0); ABG OXYGEN SATURATION 97.8 % (94.0-98.0); ABG PCO2 (T) 36.6 mmHg (35.0-48.0); ABG PH (T) 7.445 (7.350-7.450); ABG PO2 (T) 110.6 mmHg (83.0-108.0); ALLEN'S TEST Modified; FCOHb 0.6 % (0.5-1.5); FHHb 2.2 % (0.0-5.0); FLOW 3 L/min; FO2Hb 97.2 % (94.0-98.0); MODE NASAL CANNULA; PATIENT TEMPERATURE 37.2
[2024-09-25] MEDS: insulin regular, human 10 units/0.1 ml syringe IV ONE (05:33)
[2024-09-25] MEDS: calcium chloride 100 MG/1 ML inj IV ONE (05:33)
[2024-09-25] MEDS ORDERED: glucagon, human recombinant 1mg kit SUBCUT PRN (06:00)
[2024-09-25] MEDS ORDERED: dextrose 50%-water 50ml dispensing syringe IV PRN ×2 (06:00)
[2024-09-25] MEDS ORDERED: DEXTROSE 15 GM of carb/4 tabs (each vial/BOTTLE has 4 tablets) PO PRN ×2 (06:00)
[2024-09-25] MEDS: INSULIN LISPRO 100 UNIT/ML INSULN.PEN MULTI-DOSE SQ SCH (07:00)
[2024-09-25 08:45] LABS: ALBUMIN 2.8 G/DL (3.4-5.0); ANION GAP 9 (8-16); BLOOD UREA NITROGEN 53 MG/DL (7-18); CALCIUM 9.1 MG/DL (8.5-10.1); CHLORIDE 101 MMOL/L (99-107); CREATININE 3.12 MG/DL (0.60-1.10); GLUCOSE 144 MG/DL (70-104); MAGNESIUM 1.9 MG/DL (1.5-2.4); POTASSIUM 4.3 MMOL/L (3.5-5.1); SODIUM 136 MMOL/L (135-145); TOTAL CARBON DIOXIDE 25.7 MMOL/L (24-32); eCRCL 24 ML/MIN; eGFR 21 ML/MIN
[2024-09-25 09:26] LABS: ALBUMIN/GLOBULIN RATIO 0.9 (1.1-1.5); ALKALINE PHOSPHATASE 338 IU/L (46-116); BILIRUBIN,TOTAL 2.2 MG/DL (0.1-1.0); PHOSPHORUS 4.8 MG/DL (2.3-4.5); TOTAL PROTEIN 5.9 G/DL (6.4-8.2)
[2024-09-25 09:28] LABS: ALANINE AMINOTRANSFERASE 1235 U/L (12-78); ASPARTATE AMINO TRANSFERASE 1472 U/L (10-37)
[2024-09-25] MEDS ORDERED: LEVO75TA PO (09:53)
[2024-09-25] MEDS ORDERED: FLUT1DIS20 INH (09:53)
[2024-09-25] MEDS ORDERED: ONDA-243 PO (09:53)
[2024-09-25] MEDS ORDERED: METO-467 PO (09:53)
[2024-09-25] MEDS ORDERED: ALBU90AE INH (09:53)
[2024-09-25] MEDS ORDERED: [UNRECOGNIZED DRUG - OTHER] PO (09:54)
[2024-09-25 11:40] LABS: ACETAMINOPHEN < 2.0 UG/ML (10-30)
[2024-09-25] MEDS ORDERED: ipratropium/albuterol 3ml nebule NEB PRN (13:05)
[2024-09-25] MEDS: furosemide 40mg/4ml inj IV SCH (13:15)
[2024-09-25] MEDS: calcium acetate 667mg (PhosLO) capsule PO SCH (13:15)
[2024-09-25] MEDS: CefTRIAXone/D5W-Rocephin 1gm 50 ML IV ONE (15:22)
[2024-09-25 15:33] LABS: ALBUMIN 2.7 G/DL (3.4-5.0); ANION GAP 10 (8-16); BLOOD UREA NITROGEN 57 MG/DL (7-18); BUN/CREATININE RATIO 15.2 (10.0-20.0); CALCIUM 9.1 MG/DL (8.5-10.1); CHLORIDE 100 MMOL/L (99-107); CREATININE 3.76 MG/DL (0.60-1.10); GLUCOSE 132 MG/DL (70-104); POTASSIUM 3.9 MMOL/L (3.5-5.1); SODIUM 137 MMOL/L (135-145); TOTAL CARBON DIOXIDE 26.8 MMOL/L (24-32); eCRCL 20 ML/MIN; eGFR 17 ML/MIN
[2024-09-25] MEDS: acetaminophen 325mg tablet PO PRN (17:54)
[2024-09-25] MEDS: apixaban 5mg tablet PO SCH (19:40)
[2024-09-25 19:56] LABS: ALBUMIN 2.7 G/DL (3.4-5.0); ANION GAP 11 (8-16); BLOOD UREA NITROGEN 59 MG/DL (7-18); BUN/CREATININE RATIO 14.5 (10.0-20.0); CHLORIDE 99 MMOL/L (99-107); CREATININE 4.08 MG/DL (0.60-1.10); GLUCOSE 129 MG/DL (70-104); POTASSIUM 3.9 MMOL/L (3.5-5.1); SODIUM 137 MMOL/L (135-145); TOTAL CARBON DIOXIDE 27.5 MMOL/L (24-32); eCRCL 18 ML/MIN; eGFR 15 ML/MIN
[2024-09-26] VITALS (11 sets, daily range): BP systolic 128–160; BP diastolic 71–91; PULSE 64–97; RESP 12–20; TEMP 97.1–97.9; O2SAT 90–100
[2024-09-26] MEDS ORDERED: atorvastatin 20mg tablet PO SCH (08:00)
[2024-09-26 08:01] LABS: HBSAG SCREEN Negative (Negative)
[2024-09-26 08:26] LABS: EOSINOPHILS # (AUTO) 0.1 X10'3 (0-0.9); EOSINOPHILS % (AUTO) 1.5 % (0-6); HEMOGLOBIN 9.1 g/dl (14.0-17.9); MEAN CORPUSCULAR HEMOGLOBIN 26.5 PG (27.0-31.0); RED CELL DISTRIBUTION WIDTH 18.4 % (11.5-14.5)
[2024-09-26 08:28] LABS: BASOPHILS % (AUTO) 0.4 % (0-1); HEMATOCRIT 28.8 % (42.0-52.0); LYMPHOCYTES # (AUTO) 0.4 X10'3 (1.1-4.8); LYMPHOCYTES % (AUTO) 4.7 % (21-51); MEAN CORPUSCULAR HGB CONC 31.7 g/dL (33.0-36.5); MEAN CORPUSCULAR VOLUME 83.7 FL (78-98); MEAN PLATELET VOLUME 8.4 FL (7.4-10.4); MONOCYTES % (AUTO) 11.1 % (2-12); NEUTROPHILS # (AUTO) 7.3 X10'3 (1.8-7.7); NEUTROPHILS % (AUTO) 82.3 % (42-75); PLATELET COUNT 235 X10'3 (140-440); RED BLOOD COUNT 3.44 X10'6 (4.70-6.10); WHITE BLOOD COUNT 8.8 X10'3 (4.5-11.0)
[2024-09-26] MEDS: CefTRIAXone/D5W-Rocephin 1gm 50 ML IV SCH (09:02)
[2024-09-26 09:31] LABS: ALANINE AMINOTRANSFERASE 1171 U/L (12-78); ALBUMIN 2.8 G/DL (3.4-5.0); ALBUMIN/GLOBULIN RATIO 0.9 (1.1-1.5); ALKALINE PHOSPHATASE 313 IU/L (46-116); ANION GAP 6 (8-16); ASPARTATE AMINO TRANSFERASE 911 U/L (10-37); BILIRUBIN,TOTAL 1.1 MG/DL (0.1-1.0); BLOOD UREA NITROGEN 60 MG/DL (7-18); BUN/CREATININE RATIO 14.7 (10.0-20.0); CALCIUM 9.2 MG/DL (8.5-10.1); CHLORIDE 102 MMOL/L (99-107); CREATININE 4.09 MG/DL (0.60-1.10); GLUCOSE 93 MG/DL (70-104); POTASSIUM 4.2 MMOL/L (3.5-5.1); SODIUM 139 MMOL/L (135-145); TOTAL CARBON DIOXIDE 31.1 MMOL/L (24-32); TOTAL PROTEIN 5.9 G/DL (6.4-8.2); eCRCL 18 ML/MIN; eGFR 15 ML/MIN
[2024-09-26] MEDS ORDERED: heparin 1,000unit/ml 10ml vial 10 ML ONE (14:59)
[2024-09-26] MEDS ORDERED: fentaNYL/PF 50MCG/1 ML 2ML syringe ONE (14:59)
[2024-09-26] MEDS ORDERED: midazolam 1 mg/ML 2ml injection ONE (14:59)
[2024-09-27] VITALS (9 sets, daily range): BP systolic 116–157; BP diastolic 64–96; PULSE 71–115; RESP 14–18; TEMP 97.4–98.8; O2SAT 90–96
[2024-09-27] MEDS: metoprolol tartrate 1mg/ml inj IV ONE (05:52)
[2024-09-27 07:42] LABS: BASOPHILS % (AUTO) 0.6 % (0-1); EOSINOPHILS # (AUTO) 0.1 X10'3 (0-0.9); EOSINOPHILS % (AUTO) 1.5 % (0-6); HEMATOCRIT 31.5 % (42.0-52.0); HEMOGLOBIN 9.8 g/dl (14.0-17.9); LYMPHOCYTES # (AUTO) 0.4 X10'3 (1.1-4.8); LYMPHOCYTES % (AUTO) 6.3 % (21-51); MEAN CORPUSCULAR HEMOGLOBIN 26.3 PG (27.0-31.0); MEAN CORPUSCULAR HGB CONC 31.1 g/dL (33.0-36.5); MEAN CORPUSCULAR VOLUME 84.5 FL (78-98); MEAN PLATELET VOLUME 8.3 FL (7.4-10.4); MONOCYTES # (AUTO) 0.8 X10'3 (0-0.9); MONOCYTES % (AUTO) 11.8 % (2-12); NEUTROPHILS # (AUTO) 5.3 X10'3 (1.8-7.7); NEUTROPHILS % (AUTO) 79.8 % (42-75); PLATELET COUNT 255 X10'3 (140-440); RED BLOOD COUNT 3.72 X10'6 (4.70-6.10); RED CELL DISTRIBUTION WIDTH 18.1 % (11.5-14.5); WHITE BLOOD COUNT 6.7 X10'3 (4.5-11.0)
[2024-09-27 08:18] LABS: ALANINE AMINOTRANSFERASE 940 U/L (12-78); ALBUMIN 2.8 G/DL (3.4-5.0); ALBUMIN/GLOBULIN RATIO 0.8 (1.1-1.5); ALKALINE PHOSPHATASE 324 IU/L (46-116); ANION GAP 6 (8-16); ASPARTATE AMINO TRANSFERASE 471 U/L (10-37); BILIRUBIN,TOTAL 0.8 MG/DL (0.1-1.0); BLOOD UREA NITROGEN 64 MG/DL (7-18); BUN/CREATININE RATIO 15.2 (10.0-20.0); CALCIUM 9.5 MG/DL (8.5-10.1); CHLORIDE 97 MMOL/L (99-107); CREATININE 4.22 MG/DL (0.60-1.10); GLUCOSE 94 MG/DL (70-104); POTASSIUM 4.1 MMOL/L (3.5-5.1); SODIUM 136 MMOL/L (135-145); TOTAL CARBON DIOXIDE 33.1 MMOL/L (24-32); TOTAL PROTEIN 6.4 G/DL (6.4-8.2); eCRCL 17 ML/MIN; eGFR 14 ML/MIN
[2024-09-27] MEDS: metoprolol succinate 25mg (24-HOUR) SR. Tablet PO ONE (09:33)
[2024-09-28] VITALS (9 sets, daily range): BP systolic 107–138; BP diastolic 70–88; PULSE 111–120; RESP 14–20; TEMP 97–98.5; O2SAT 92–98
[2024-09-28 07:35] LABS: ALANINE AMINOTRANSFERASE 719 U/L (12-78); ALBUMIN 2.9 G/DL (3.4-5.0); ALBUMIN/GLOBULIN RATIO 0.8 (1.1-1.5); ALKALINE PHOSPHATASE 298 IU/L (46-116); ANION GAP 6 (8-16); ASPARTATE AMINO TRANSFERASE 246 U/L (10-37); BILIRUBIN,TOTAL 0.8 MG/DL (0.1-1.0); BLOOD UREA NITROGEN 56 MG/DL (7-18); BUN/CREATININE RATIO 14.7 (10.0-20.0); CALCIUM 10.2 MG/DL (8.5-10.1); CHLORIDE 96 MMOL/L (99-107); CREATININE 3.81 MG/DL (0.60-1.10); GLUCOSE 89 MG/DL (70-104); PHOSPHORUS 3.9 MG/DL (2.3-4.5); POTASSIUM 3.6 MMOL/L (3.5-5.1); SODIUM 136 MMOL/L (135-145); TOTAL CARBON DIOXIDE 34.5 MMOL/L (24-32); TOTAL PROTEIN 6.6 G/DL (6.4-8.2); eCRCL 19 ML/MIN; eGFR 16 ML/MIN
[2024-09-28 07:36] LABS: BASOPHILS % (AUTO) 0.6 % (0-1); EOSINOPHILS # (AUTO) 0.1 X10'3 (0-0.9); EOSINOPHILS % (AUTO) 1.7 % (0-6); HEMATOCRIT 35.5 % (42.0-52.0); HEMOGLOBIN 11.2 g/dl (14.0-17.9); LYMPHOCYTES # (AUTO) 0.6 X10'3 (1.1-4.8); LYMPHOCYTES % (AUTO) 8.5 % (21-51); MEAN CORPUSCULAR HEMOGLOBIN 26.4 PG (27.0-31.0); MEAN CORPUSCULAR HGB CONC 31.5 g/dL (33.0-36.5); MEAN CORPUSCULAR VOLUME 83.8 FL (78-98); MEAN PLATELET VOLUME 8.5 FL (7.4-10.4); MONOCYTES % (AUTO) 14.4 % (2-12); NEUTROPHILS # (AUTO) 5.4 X10'3 (1.8-7.7); NEUTROPHILS % (AUTO) 74.8 % (42-75); PLATELET COUNT 293 X10'3 (140-440); RED BLOOD COUNT 4.23 X10'6 (4.70-6.10); RED CELL DISTRIBUTION WIDTH 18.3 % (11.5-14.5); WHITE BLOOD COUNT 7.2 X10'3 (4.5-11.0)
[2024-09-28] MEDS ORDERED: EPOETIN ALFA-EPBX 20,000 UNIT/ML 1 ML MDV IV ONE (08:00)
[2024-09-28] MEDS ORDERED: metoprolol succinate 25mg (24-HOUR) SR. Tablet PO SCH (08:00)
[2024-09-28] MEDS: metoprolol succinate 25mg (24-HOUR) SR. Tablet PO SCH (08:00)
[2024-09-28] MEDS ORDERED: heparin 1,000 units/ml 10ml inj IV ONE (08:00)
[2024-09-28] MEDS ORDERED: heparin 1,000 units/ml 10ml inj HE ONE (08:00)
[2024-09-28 15:51] LABS: TOTAL PROTEIN 24HR,URINE 883.2 MG/24HR (28-141); UREA NITROGEN 24HR,URINE 8.7 GM/24HR (7-20)
[2024-09-29 02:00] VITALS: BP 118/79; PULSE 116; RESP 17; TEMP 98.1; O2SAT 98
[2024-09-29 07:00] VITALS: BP 106/60; PULSE 110; RESP 20; TEMP 98.4; O2SAT 95
[2024-09-29 08:00] VITALS: RESP 16; O2SAT 95
[2024-09-29 08:06] LABS: ALANINE AMINOTRANSFERASE 567 U/L (12-78); ALBUMIN 2.9 G/DL (3.4-5.0); ALBUMIN/GLOBULIN RATIO 0.7 (1.1-1.5); ALKALINE PHOSPHATASE 303 IU/L (46-116); ANION GAP 9 (8-16); ASPARTATE AMINO TRANSFERASE 149 U/L (10-37); BILIRUBIN,TOTAL 0.6 MG/DL (0.1-1.0); BLOOD UREA NITROGEN 56 MG/DL (7-18); BUN/CREATININE RATIO 15.6 (10.0-20.0); CHLORIDE 93 MMOL/L (99-107); CREATININE 3.59 MG/DL (0.60-1.10); GLUCOSE 96 MG/DL (70-104); PHOSPHORUS 4.5 MG/DL (2.3-4.5); SODIUM 133 MMOL/L (135-145); eCRCL 20 ML/MIN; eGFR 17 ML/MIN
[2024-09-29 08:17] LABS: BASOPHILS # (AUTO) 0.1 X10'3 (0-0.2); BASOPHILS % (AUTO) 0.8 % (0-1); EOSINOPHILS # (AUTO) 0.1 X10'3 (0-0.9); EOSINOPHILS % (AUTO) 2.1 % (0-6); HEMATOCRIT 36.4 % (42.0-52.0); HEMOGLOBIN 11.4 g/dl (14.0-17.9); LYMPHOCYTES # (AUTO) 0.7 X10'3 (1.1-4.8); LYMPHOCYTES % (AUTO) 9.8 % (21-51); MEAN CORPUSCULAR HEMOGLOBIN 26.3 PG (27.0-31.0); MEAN CORPUSCULAR HGB CONC 31.4 g/dL (33.0-36.5); MEAN CORPUSCULAR VOLUME 83.9 FL (78-98); MEAN PLATELET VOLUME 8.1 FL (7.4-10.4); MONOCYTES # (AUTO) 0.9 X10'3 (0-0.9); MONOCYTES % (AUTO) 13.7 % (2-12); NEUTROPHILS # (AUTO) 5.1 X10'3 (1.8-7.7); NEUTROPHILS % (AUTO) 73.6 % (42-75); PLATELET COUNT 289 X10'3 (140-440); RED BLOOD COUNT 4.34 X10'6 (4.70-6.10); RED CELL DISTRIBUTION WIDTH 18.7 % (11.5-14.5); WHITE BLOOD COUNT 6.9 X10'3 (4.5-11.0)
[2024-09-29] MEDS ORDERED: LEVO-65 PO (13:26)
[2024-09-29 15:00] VITALS: BP 138/95; PULSE 118; RESP 20; TEMP 97; O2SAT 96
== END 2024-09-29 19:35 | disposition home health service (06) | DRG 720 ==
LOC: ER 20:26 → ED HOLD 23:23 → CICU 2S 09-25 01:20 → PCU 3S 09-25 17:00
PROVIDERS: ADMIT Internal Medicine Sleep Medicine; ATTEND Internal Medicine Sleep Medicine
PROC: 02HV33Z Insertion of Infusion Device into Superior Vena Cava, Percutaneous Approach (ICD-10-PCS; principal; 2024-09-24)
PROC: B548ZZA Ultrasonography of Superior Vena Cava, Guidance (ICD-10-PCS; 2024-09-24)
PROC: 5A1D70Z Performance of Urinary Filtration, Intermittent, Less than 6 Hours Per Day (ICD-10-PCS; 2024-09-25)
PROC: 0JH63XZ Insertion of Tunneled Vascular Access Device into Chest Subcutaneous Tissue and Fascia, Percutaneous Approach (ICD-10-PCS; 2024-09-26)
PROC: 02HV33Z Insertion of Infusion Device into Superior Vena Cava, Percutaneous Approach (ICD-10-PCS; 2024-09-26)
PROC: B548ZZA Ultrasonography of Superior Vena Cava, Guidance (ICD-10-PCS; 2024-09-26)
DX: A41.9 Sepsis, unspecified organism (principal); K72.00 Acute and subacute hepatic failure without coma; J96.01 Acute respiratory failure with hypoxia; I44.2 Atrioventricular block, complete; N17.9 Acute kidney failure, unspecified; E87.20 Acidosis, unspecified; E83.39 Other disorders of phosphorus metabolism; N18.4 Chronic kidney disease, stage 4 (severe); I42.7 Cardiomyopathy due to drug and external agent; E11.649 Type 2 diabetes mellitus with hypoglycemia without coma; K56.7 Ileus, unspecified; I50.22 Chronic systolic (congestive) heart failure; I13.0 Hypertensive heart and chronic kidney disease with heart failure and stage 1 through stage 4 chronic kidney disease, or unspecified chronic kidney disease; B17.9 Acute viral hepatitis, unspecified; E11.22 Type 2 diabetes mellitus with diabetic chronic kidney disease; E87.5 Hyperkalemia; J44.89 Other specified chronic obstructive pulmonary disease; I48.0 Paroxysmal atrial fibrillation; E03.9 Hypothyroidism, unspecified; E78.00 Pure hypercholesterolemia, unspecified; I08.3 Combined rheumatic disorders of mitral, aortic and tricuspid valves; G89.29 Other chronic pain; M54.9 Dorsalgia, unspecified; R00.1 Bradycardia, unspecified; K74.60 Unspecified cirrhosis of liver; F15.10 Other stimulant abuse, uncomplicated; N30.90 Cystitis, unspecified without hematuria; D35.02 Benign neoplasm of left adrenal gland; T43.655A Adverse effect of methamphetamines, initial encounter; K80.20 Calculus of gallbladder without cholecystitis without obstruction; Y92.89 Other specified places as the place of occurrence of the external cause; Z82.49 Family history of ischemic heart disease and other diseases of the circulatory system; Z88.8 Allergy status to other drugs, medicaments and biological substances; Z89.512 Acquired absence of left leg below knee; Z79.51 Long term (current) use of inhaled steroids; Z79.82 Long term (current) use of aspirin; Z79.899 Other long term (current) drug therapy; Z80.0 Family history of malignant neoplasm of digestive organs; Z80.8 Family history of malignant neoplasm of other organs or systems; Z79.01 Long term (current) use of anticoagulants
CPT/HCPCS: 36415; 36556; 36558; 36600; 71045; 74176; 76937; 77001; 80048; 80053; 80305; 80329; 81001; 82550; 82570; 82803; 82948; 83605; 83690; 83735; 83880; 84100; 84132; 84133; 84156; 84300; 84443; 84484; 84540; 84560; 85007; 85018; 85025; 87040; 87081; 87340; 93005; 93306; 94760; 97116; 97161; 97530; 99291; A4620; A6213; A6590; A9270; C1750; C1752; C1769; C1894; E1594; G0257; G0378; J0461; J0696; J1610; J1644; J1815; J1940; J2150; J3490; J7030; J7040; J7070; J7120

== ENCOUNTER 2024-10-09 15:40 | Emergency (ER) | payer MEDICAID ==
[~2024-10-09] VITALS: Ht 170.2 cm; Wt 76.0 kg
[~2024-10-09 15:40] MED LIST changes: +AMI200T PO; -AMIO200T27 PO; -EMPA10TA PO; +FLUT1DIS20 INH; -FLUT1DIS4 INH; -FURO-150 PO; +FURO20TA4 PO; +LEVO-65 PO; +LEVO75TA PO; -LEVO75TA7 PO; +METO-467 PO; -METO50TA16 PO; +[UNRECOGNIZED DRUG - OTHER] PO; -atropine 0.1mg/ml 10ml syringe ONE
[2024-10-09 15:51] VITALS: TEMP 98
[2024-10-09 16:47] LABS: BASOPHILS # (AUTO) 0.1 X10'3 (0-0.2); BASOPHILS % (AUTO) 1.2 % (0-1); EOSINOPHILS # (AUTO) 0.1 X10'3 (0-0.9); EOSINOPHILS % (AUTO) 1.9 % (0-6); HEMATOCRIT 29.8 % (42.0-52.0); HEMOGLOBIN 9.2 g/dl (14.0-17.9); LYMPHOCYTES # (AUTO) 0.6 X10'3 (1.1-4.8); LYMPHOCYTES % (AUTO) 10.4 % (21-51); MEAN CORPUSCULAR HEMOGLOBIN 25.7 PG (27.0-31.0); MEAN CORPUSCULAR HGB CONC 30.8 g/dL (33.0-36.5); MEAN CORPUSCULAR VOLUME 83.4 FL (78-98); MEAN PLATELET VOLUME 7.8 FL (7.4-10.4); MONOCYTES # (AUTO) 0.7 X10'3 (0-0.9); MONOCYTES % (AUTO) 12.5 % (2-12); PLATELET COUNT 303 X10'3 (140-440); RED BLOOD COUNT 3.58 X10'6 (4.70-6.10); RED CELL DISTRIBUTION WIDTH 18.6 % (11.5-14.5); WHITE BLOOD COUNT 5.4 X10'3 (4.5-11.0)
[2024-10-09 16:58] LABS: ALANINE AMINOTRANSFERASE 304 U/L (12-78); ALBUMIN 3.1 G/DL (3.4-5.0); ALBUMIN/GLOBULIN RATIO 0.8 (1.1-1.5); ALKALINE PHOSPHATASE 269 IU/L (46-116); ANION GAP 8 (8-16); ASPARTATE AMINO TRANSFERASE 282 U/L (10-37); BLOOD UREA NITROGEN 57 MG/DL (7-18); CHLORIDE 104 MMOL/L (99-107); CREATININE 3.35 MG/DL (0.60-1.10); GLUCOSE 87 MG/DL (70-104); POTASSIUM 5.3 MMOL/L (3.5-5.1); SODIUM 140 MMOL/L (135-145); TOTAL CARBON DIOXIDE 27.6 MMOL/L (24-32); eCRCL 22 ML/MIN; eGFR 19 ML/MIN
[2024-10-09 17:07] LABS: MAGNESIUM 2.6 MG/DL (1.5-2.4); PRO BRAIN NATRIURETIC PEPTIDE 28901 PG/ML (0-125)
[2024-10-09 17:10] LABS: PLATELET ESTIMATE NORMAL
[2024-10-09 17:11] LABS: ANISOCYTOSIS 2+
[2024-10-09 17:12] LABS: ACANTHOCYTES FEW; POIKILOCYTOSIS FEW; SCHISTOCYTES FEW
[2024-10-09 17:35] LABS: URINE AMPHETAMINE SCREEN NEGATIVE (Neg); URINE BARBITUATE SCREEN NEGATIVE (Neg); URINE BENZODIAZEPINES SCREEN NEGATIVE (Neg); URINE CANNABINOID SCREEN NEGATIVE (Neg); URINE COCAINE SCREEN NEGATIVE (Neg); URINE METHADONE SCREEN NEGATIVE (Neg); URINE OPIATE SCREEN POSITIVE (Neg); URINE PHENCYCLIDINE SCREEN NEGATIVE (Neg)
[2024-10-09 17:40] LABS: ETHANOL < 10 MG/DL (<10)
[2024-10-09 17:59] VITALS: PULSE 108; RESP 14; O2SAT 96
[2024-10-09] MEDS: ipratropium/albuterol 3ml nebule NEB ONE (17:59)
[2024-10-09 18:04] VITALS: PULSE 100; RESP 15; O2SAT 100
[2024-10-09] MEDS: carVEDilol 3.125mg tablet PO ONE (18:04)
[2024-10-09] MEDS: furosemide 20MG tablet PO ONE (18:05)
[2024-10-09] MEDS ORDERED: LEVO-65 PO (19:07)
[2024-10-09] MEDS ORDERED: FURO40TA4 PO (19:07)
[2024-10-09] MEDS: levoFLOXACIN 250mg tablet PO ONE (19:12)
[2024-10-09] MEDS: CEFEPIME 2gm in D5W 50mL 50 ML IV ONE (19:17)
[2024-10-09] MEDS: carVEDilol 3.125mg tablet PO SCH (20:45)
[2024-10-09 20:51] VITALS: BP 107/67; PULSE 98; RESP 18; O2SAT 94
[2024-10-09] MEDS ORDERED: ALB0.5UD NEB (20:53)
== END 2024-10-09 20:52 | disposition home or self-care (01) ==
LOC: ER 15:40
DX: J18.9 Pneumonia, unspecified organism (principal); E87.5 Hyperkalemia; I13.0 Hypertensive heart and chronic kidney disease with heart failure and stage 1 through stage 4 chronic kidney disease, or unspecified chronic kidney disease; I50.9 Heart failure, unspecified; N18.9 Chronic kidney disease, unspecified; I48.91 Unspecified atrial fibrillation; E78.00 Pure hypercholesterolemia, unspecified; G89.29 Other chronic pain; M54.9 Dorsalgia, unspecified; J45.909 Unspecified asthma, uncomplicated; F12.90 Cannabis use, unspecified, uncomplicated; Z72.89 Other problems related to lifestyle; Z88.8 Allergy status to other drugs, medicaments and biological substances; Z79.82 Long term (current) use of aspirin; Z79.52 Long term (current) use of systemic steroids; Z79.899 Other long term (current) drug therapy
CPT/HCPCS: 36415; 71045; 80053; 80305; 80320; 83735; 83880; 84484; 85008; 85025; 93005; 94640; 96365; 99285; J0692; J7030; 94760

== ENCOUNTER 2024-11-04 15:56 | Emergency (ER) | payer MEDICAID ==
[~2024-11-04] VITALS: Ht 175.3 cm; Wt 71.0 kg
[~2024-11-04 15:56] MED LIST changes: +ALB0.5UD NEB; +FURO40TA4 PO
[2024-11-04 16:04] VITALS: TEMP 97.6
[2024-11-04 17:10] LABS: BASOPHILS # (AUTO) 0.1 X10'3 (0-0.2); BASOPHILS % (AUTO) 1.1 % (0-1); EOSINOPHILS # (AUTO) 0.4 X10'3 (0-0.9); EOSINOPHILS % (AUTO) 7.1 % (0-6); HEMATOCRIT 37.5 % (42.0-52.0); HEMOGLOBIN 11.8 g/dl (14.0-17.9); LYMPHOCYTES % (AUTO) 17.1 % (21-51); MEAN CORPUSCULAR HEMOGLOBIN 25.2 PG (27.0-31.0); MEAN CORPUSCULAR HGB CONC 31.6 g/dL (33.0-36.5); MEAN CORPUSCULAR VOLUME 79.6 FL (78-98); MEAN PLATELET VOLUME 7.5 FL (7.4-10.4); MONOCYTES # (AUTO) 0.6 X10'3 (0-0.9); MONOCYTES % (AUTO) 10.2 % (2-12); NEUTROPHILS # (AUTO) 3.7 X10'3 (1.8-7.7); NEUTROPHILS % (AUTO) 64.5 % (42-75); PLATELET COUNT 345 X10'3 (140-440); RED CELL DISTRIBUTION WIDTH 19.5 % (11.5-14.5); WHITE BLOOD COUNT 5.8 X10'3 (4.5-11.0)
[2024-11-04 17:11] LABS: ALANINE AMINOTRANSFERASE 38 U/L (12-78); ALBUMIN 3.4 G/DL (3.4-5.0); ALBUMIN/GLOBULIN RATIO 0.7 (1.1-1.5); ALKALINE PHOSPHATASE 153 IU/L (46-116); ANION GAP 5 (8-16); ASPARTATE AMINO TRANSFERASE 33 U/L (10-37); BILIRUBIN,TOTAL 0.5 MG/DL (0.1-1.0); BLOOD UREA NITROGEN 61 MG/DL (7-18); BUN/CREATININE RATIO 18.1 (10.0-20.0); CALCIUM 10.3 MG/DL (8.5-10.1); CHLORIDE 103 MMOL/L (99-107); CREATININE 3.37 MG/DL (0.60-1.10); GLUCOSE 119 MG/DL (70-104); SODIUM 140 MMOL/L (135-145); TOTAL CARBON DIOXIDE 32.2 MMOL/L (24-32); TOTAL PROTEIN 8.2 G/DL (6.4-8.2); eCRCL 23 ML/MIN; eGFR 19 ML/MIN
[2024-11-04 18:14] LABS: PLATELET ESTIMATE NORMAL
[2024-11-04 18:15] LABS: ANISOCYTOSIS 2+; ELLIPTOCYTES 1+; MICROCYTOSIS 1+
[2024-11-04 18:16] LABS: ACANTHOCYTES FEW; SCHISTOCYTES FEW
[2024-11-04] MEDS ORDERED: vancomycin inj 1,000 MG in normal saline 250ml IV soln 250 ML IV ONE (20:10)
[2024-11-04] MEDS: vancomycin/NS 1 GM ADD-VANTAGE 250 ML X 1 DOSE IV ONE (21:01)
[2024-11-04] MEDS: cefTAZidime 1 GM/NS 100ML IVPB 100 ML IV ONE (22:44)
[2024-11-04 23:27] VITALS: BP 135/89; PULSE 104; RESP 18; O2SAT 98
== END 2024-11-04 23:30 | disposition home or self-care (01) ==
LOC: ER 15:57
DX: Z49.01 Encounter for fitting and adjustment of extracorporeal dialysis catheter (principal); I11.0 Hypertensive heart disease with heart failure; I50.9 Heart failure, unspecified; J44.89 Other specified chronic obstructive pulmonary disease; E78.00 Pure hypercholesterolemia, unspecified; F12.90 Cannabis use, unspecified, uncomplicated; Z88.1 Allergy status to other antibiotic agents; Z88.6 Allergy status to analgesic agent; Z88.8 Allergy status to other drugs, medicaments and biological substances
CPT/HCPCS: 36415; 80053; 85008; 85025; 96365; 96366; 96368; 99285; J0713; J3370; A6449

== ENCOUNTER 2024-11-06 17:52 | Emergency (ER) | payer MEDICAID ==
[~2024-11-06] VITALS: Ht 170.2 cm; Wt 58.7 kg
[2024-11-06 17:53] VITALS: BP 126/80; PULSE 101; RESP 15; O2SAT 99
[2024-11-06 18:40] VITALS: TEMP 97.3
== END 2024-11-06 18:42 | disposition home or self-care (01) ==
LOC: ER 17:53
DX: Z49.01 Encounter for fitting and adjustment of extracorporeal dialysis catheter (principal); I11.0 Hypertensive heart disease with heart failure; I50.9 Heart failure, unspecified; E78.00 Pure hypercholesterolemia, unspecified; I48.91 Unspecified atrial fibrillation; G89.29 Other chronic pain; M54.9 Dorsalgia, unspecified; J45.909 Unspecified asthma, uncomplicated; F12.90 Cannabis use, unspecified, uncomplicated; J44.9 Chronic obstructive pulmonary disease, unspecified; Z88.8 Allergy status to other drugs, medicaments and biological substances; Z79.82 Long term (current) use of aspirin; Z79.52 Long term (current) use of systemic steroids; Z79.899 Other long term (current) drug therapy; Z72.89 Other problems related to lifestyle
CPT/HCPCS: 99281

== ENCOUNTER 2024-11-07 14:25 | Emergency (ER) | payer MEDICAID ==
[~2024-11-07] VITALS: Ht 170.2 cm; Wt 72.5 kg
[2024-11-07 14:30] VITALS: BP 147/84; PULSE 102; RESP 16; TEMP 98; O2SAT 100
[2024-11-07 15:36] LABS: ALBUMIN 3.2 G/DL (3.4-5.0); ANION GAP 4 (8-16); BLOOD UREA NITROGEN 51 MG/DL (7-18); BUN/CREATININE RATIO 16.7 (10.0-20.0); CALCIUM 9.5 MG/DL (8.5-10.1); CHLORIDE 103 MMOL/L (99-107); CREATININE 3.05 MG/DL (0.60-1.10); GLUCOSE 91 MG/DL (70-104); POTASSIUM 4.3 MMOL/L (3.5-5.1); SODIUM 139 MMOL/L (135-145); TOTAL CARBON DIOXIDE 31.8 MMOL/L (24-32); eCRCL 24 ML/MIN; eGFR 21 ML/MIN
== END 2024-11-07 18:01 | disposition home or self-care (01) ==
LOC: ER 14:26
DX: Z45.2 Encounter for adjustment and management of vascular access device (principal); I11.0 Hypertensive heart disease with heart failure; I50.9 Heart failure, unspecified; I48.91 Unspecified atrial fibrillation; E78.00 Pure hypercholesterolemia, unspecified; G89.29 Other chronic pain; M54.9 Dorsalgia, unspecified; J45.909 Unspecified asthma, uncomplicated; J44.9 Chronic obstructive pulmonary disease, unspecified; F12.90 Cannabis use, unspecified, uncomplicated; Z72.89 Other problems related to lifestyle; Z88.8 Allergy status to other drugs, medicaments and biological substances; Z79.82 Long term (current) use of aspirin; Z79.899 Other long term (current) drug therapy
CPT/HCPCS: 36415; 36589; 80069; 99283; A6222; A6258; A6449

== ENCOUNTER 2025-02-27 17:43 | Inpatient (IN) | payer MEDICAID ==
[~2025-02-27] VITALS: Ht 170.2 cm; Wt 74.8 kg
[~2025-02-27 17:43] MED LIST changes: -ALB0.5UD NEB; -AMI200T PO; +AMIO200T76 PO; -FURO40TA4 PO; -LEVO-65 PO
--- NOTE | 2025-02-27 19:48 | RADIOLOGY REPORT ---
CHEST RADIOGRAPH Indication: Bloody sputum Technique: Frontal and lateral view of the chest was obtained Comparison: Chest PA 10/09/24 FINDINGS: Lines and Tubes: None Lungs: Clear Pleura: No effusion. No pneumothorax. Cardiomediastinal contours: Unremarkable IMPRESSION: No evidence of acute disease.
--- NOTE | 2025-02-27 20:56 | ELECTROCARDIOGRAPH REPORT ---
[facility] Test Date: 2025-02-27 Test Time: 20:53:28 Pat Name: PAMELA MANCERA Department: [facility] Patient ID: [facility]-[id number] Room: Gender: M Message Clerk: : 1965 Requested By: DAISY UNDERWOOD Order Number: [id number] Reading MD: Dr. Pedro Peng Measurements Intervals Prince Rate: 108 P: 0 HI: 0 QRS: 250 QRSD: 157 T: 60 QT: 382 QTc: 512 Interpretive Statements Atrial flutter with predominant 2:1 AV block Nonspecific IVCD with LAD Consider left ventricular hypertrophy Inferior infarct, acute (LCx) Probable anterolateral infarct, acute Electronically Signed On 02-27-2025 21:39:[address] Pedro Peng Please click the below link to view image of tracing.
[2025-02-27 22:02] LABS: MEAN PLATELET VOLUME 8.0 FL (7.4-10.4); RED CELL DISTRIBUTION WIDTH 20.7 % (11.5-14.5)
[2025-02-27 22:26] LABS: CREATININE 4.13 MG/DL (0.60-1.10); PLATELET ESTIMATE NORMAL; PRO BRAIN NATRIURETIC PEPTIDE 2024 PG/ML (0-125); TOTAL CARBON DIOXIDE 27.9 MMOL/L (24-32); eCRCL 18 ML/MIN; eGFR 15 ML/MIN
[2025-02-27 22:29] LABS: ELLIPTOCYTES FEW
--- NOTE | 2025-02-27 22:44 | Physician Documentation ---
History of Present Illness ~ Chief Complaint: Bloody Sputum Stated Complaint: "COUGHING UP BLOOD" Time Seen by MD: 22:40 OK to notify your PCP?: Yes Primary Medical Doctor: Gabe Jordan Source: patient, RN/, RN notes reviewed, old records Exam Limitations: no limitations HPI 59 year old male presents to the emergency department for complaints of bloody sputum that has been present for three days. He states that has been coughing for three days and spitting up bloody sputum. He states he has been having fevers and intermittent shortness of breath. Patient denies any chest pain. He states that he is on Eliquis due to his afib. Medication Reconciliation Allergies: Coded Allergies: lisinopril (Verified Allergy, Unknown, 02/27/25) angioedema Scheduled Amiodarone Hcl (Cordarone), 1 TAB PO DAILY, (Reported) Amoxicillin Trihydrate (Amoxicillin), 2 CAP PO Q12H Apixaban (Eliquis), 1 TAB PO Q12H Aspirin (Aspirin EC), 1 TAB PO DAILY, (Reported) Atorvastatin Calcium (Atorvastatin Calcium), 1 TAB PO DAILY, (Reported) Escitalopram Oxalate (Escitalopram Oxalate), 1 TAB PO DAILY, (Reported) Fluticasone/Salmeterol (Advair 250-50 Diskus), 1 PUFFS INH Q12H, (Reported) Levothyroxine Sodium* (Synthroid*), 150 MCG PO DAILY, (Reported) Metoprolol Tartrate (Lopressor), 1 TAB PO Q12H, (Reported) [Renal supplement], 1 TAB PO DAILY, (Reported) Scheduled PRN Albuterol Sulfate (Proair Respiclick), 2 PUFFS INH Q4HPRN PRN for shortness of breath, (Reported) Discontinued Medications Apixaban (Eliquis), 1 TAB PO Q12H, (Reported) Azithromycin (Zithromax), 1 TAB PO DAILY Discontinued Reason: Other Furosemide (Furosemide), 1 TAB PO DAILY, (Reported) Discontinued Reason: patient no longer taking Furosemide (Furosemide), 1 TAB PO BID, (Reported) ONDANSETRON ODT 4mg tablet (Ondansetron Odt), 1 TAB PO Q6H PRN PRN for nausea/vomiting, (Reported) Discontinued Reason: Other Past Medical History Past Medical History: Atrial Fibrillation, Congestive Heart Failure, High Ch olesterol, Hypertension, Asthma, COPD, Chronic Kidney Disease, Chronic Back Pain, *PSYCH* Past Surgical History: noncontributory Patient History: FH: cancer FATHER ([place], cancer SKIN), , Age: 58 MOTHER (BRAIN CANCER. ), , Age: 56 FAMILY/OTHER, Name: BROTHER (CANCER, STOMACH), , Age: 39 FH: cancer FATHER ([place], cancer SKIN), , Age: 58 MOTHER (BRAIN CANCER. ), , Age: 56 FAMILY/OTHER, Name: BROTHER (CANCER, STOMACH), , Age: 39 FH: cancer FATHER ([place], cancer SKIN), , Age: 58 MOTHER (BRAIN CANCER. ), , Age: 56 FAMILY/OTHER, Name: BROTHER (CANCER, STOMACH), , Age: 39 Alcohol Use: Occasionally Drug Use: marijuana Review of Systems All Other Systems at this time: Reviewed and Negative ROS As stated above in the HPI, otherwise all systems are reviewed and negative. Physical Exam Vital Signs: RN Vital Signs have been reviewed: Yes, Temperature: 98.0, Source: Temporal, Heart Rate: 108, Respiratory Rate: 18, BP: 167/96, Pulse Oximetry: 98, Weight: 71.600 Oxygen Flow Rate: 0 Pulse Oximetry Reflects: adequate oxygenation Physical Exam General: The patient is well developed, well nourished, nontoxic appearing and is in no acute distress. Skin: [place], warm and dry with no rashes. HEENT: Head was normocephalic and atraumatic. Eyes - pupils equal, round, reactive to light and accommodation. Extraocular movements were intact. Conjunctivae were nonicteric. Ears - bilateral tympanic membranes were normal. The mouth and oropharynx were clear with moist mucous membranes. There were no pharyngeal exudates or erythema. Neck: Supple and nontender. There was no jugular venous distention, lymphadenopathy, thyromegaly or masses. Chest:Trace rhonchi and wheeze. No accessory muscle use. No dullness to percussion. Heart: Rate regular and rhythmic. S1, S2. No murmurs. Palpation of the chest wall was normal. No rubs or thrills. Abdomen: Soft, nontender and nondistended. Positive bowel sounds. No guarding or rebound. No hepatosplenomegaly or palpable masses. Extremities: No cyanosis, clubbing or edema. The patient moves all extremities. Pulses were equal and symmetric. Neurologic: Cranial nerves II-XII were intact. Sensation was intact to light touch throughout. Motor strength was 5/5 in all four extremities. Deep tendon reflexes were intact in both upper and lower extremities. Psychologic: The patient was oriented to person, place and time. The patient demonstrated appropriate judgement and insight. Progress Progress Note 2339: The case was discussed with the resident at this time who was informed on the patient and kindly agreed to admission. Results/Orders Results/Orders Orders - PEDRO PENG MD Monitor (02/27/25 21:12) Saline Lock (02/27/25 21:12) Oxygen (02/27/25 21:12) Page Hospitalist (02/27/25 22:59) Fill Out Med Reconciliation (02/27/25 22:59) Electrocardiogram (02/28/25 12:00) Completed Orders - PEDRO PENG MD PBNP (02/27/25 21:12) Hs Troponin I W Calculations (02/27/25 21:12) Hs Troponin I W Calculations (02/27/25 23:12) Hs Troponin I W Calculations (02/28/25 00:12) Azithromycin Tablet (Zithromax Tablet) (02/27/25 22:55) Dexamethasone Tablet (Decadron Tablet) (02/27/25 23:00) Ceftriaxone 2gm/D5w 50ml Bag (Rocephin 2 (02/27/25 23:00) Electrocardiogram (02/28/25 12:00) Laboratory Tests Test 02/27/25 21:27 White Blood Count 14.1 H Red Blood Count 5.18 Hemoglobin 14.2 Hematocrit 44.4 Mean Corpuscular Volume 85.7 Mean Corpuscular Hemoglobin 27.4 Mean Corpuscular Hemoglobin Concent 32.0 L Red Cell Distribution Width 20.7 H Platelet Count 298 Mean Platelet Volume 8.0 Neutrophils (%) (Auto) 86.5 H Lymphocytes (%) (Auto) 4.8 L Monocytes (%) (Auto) 7.8 Eosinophils (%) (Auto) 0.6 Basophils (%) (Auto) 0.3 Neutrophils # (Auto) 12.2 H Lymphocytes # (Auto) 0.7 L Monocytes # (Auto) 1.1 H Eosinophils # (Auto) 0.1 Basophils # (Auto) 0.0 CBC Comment Platelet Estimate Normal Red Blood Cell Morphology Perf Basophilic Stippling Anisocytosis 2+ Microcytosis 1+ Elliptocytes Few Sodium Level 133 L Potassium Level 3.9 Chloride Level 95 L Carbon Dioxide Level 27.9 Anion Gap 10 Blood Urea Nitrogen 59 H Creatinine 4.13 H Estimated GFR/1.73 m2 15 BUN/Creatinine Ratio 14.3 Glucose Level 141 H Calcium Level 10.5 H Magnesium Level 2.5 H Total Bilirubin 0.7 Direct Bilirubin 0.1 Aspartate Amino Transf (AST/SGOT) 33 Alanine Aminotransferase (ALT/SGPT) 45 Alkaline Phosphatase 132 H Troponin I High Sensitivity 45 Pro-B-Type Natriuretic Peptide 2024 H Total Protein 9.1 H Albumin 4.2 Globulin 4.9 H Albumin/Globulin Ratio 0.9 L Procalcitonin 0.05 Thyroid Stimulating Hormone (TSH) 22.66 H Free Thyroxine 1.27 Chemistry Comments Re-Evaluation Re-evaluation : Bronchodilator Tx Response: moderate relief Re-Evaluation: Improved Progress Patient was seen and examined. Patient is given reassurance. Patient was happy history of hemoptysis. He presented with some bloody sputum few times in his tissue. Patient is on blood thinners unfortunately. His laboratory work was then obtained WBCs slightly elevated at 14.1 with 86 neutrophils. Hemoglobin hematocrit is normal at 14 and 44. Patient's chemistry shows slightly low sodi um at 1:33 a.m. potassium 3.9 chloride 95 CO2 27 BUN 59 creatinine 4.13 which is surprisingly at the patient's baseline. There was no report of hemodialysis. Patient's calcium is elevated at 10.5. Magnesium also high at 2.5. Patient is not a candidate for hemodialysis at this time. Troponins are negative patient is TSH is elevated at 22.66. Tox screen is positive for marijuana and methamphetamine urinalysis is within normal limits. For the patient's hemoptysis patient received 12 mg of steroids as well as Zithromax for possible infection as well as Rocephin 2 g. Afterwards I contacted the hospitalist regarding management of the patient. Patient's anticoagulation may be withheld. Patient was then admitted to the hospitalist service for further workup and care. Continuous library monitor interpretation shows sinus tachycardia heart rate 110s, abnormal, my interpretation later improved to a heart rate in the 90s, no ectopy, normal, my interpretation. P oximetry monitor interpretation shows normal oxygenation at 98% room air, normal, my interpretation EKG/XRAY/CT/US/VASC/MRI EKG : Additional Comment [facility] Test Date: 2025-02-27 Test Time: 20:53:28 Pat Name: PAMELA MANCERA Department: [facility]- Patient ID: [facility]-[id number] Room: Gender: M Education Intern: : 1965 Requested By: DAISY UNDERWOOD Order Number: [id number] Reading MD: Dr. Pedro Peng Measurements Intervals [place] Rate: 108 P: 0 [place]: 0 QRS: 250 QRSD: 157 T: 60 QT: 382 QTc: 512 Interpretive Statements Atrial flutter with predominant 2:1 AV block Nonspecific IVCD with LAD Consider left ventricular hypertrophy Inferior infarct, acute (LCx) Probable anterolateral infarct, acute Electronically Signed On 02-27-2025 21:39:[address] Pedro Peng Please click the below link to view image of tracing. EKG Date and Time:02/27/252052 Electronically Signed by: PEDRO PENG MD Date and Time: 02/27/252138 Chest X-Ray : Additional Comments CHEST RADIOGRAPH Indication: Bloody sputum Technique: Frontal and lateral view of the chest was obtained Comparison: Chest PA 10/09/24 FINDINGS: Lines and Tubes: None Lungs: Clear Pleura: No effusion. No pneumothorax. Cardiomediastinal contours: Unremarkable IMPRESSION: No evidence of acute disease. Electronically Signed by:VINCENT GUARDADO MD Date & Time: 02/27/251945 Medical Decision Making Additional info obtained from: old records Differential Dx:Considerations: Include: anxiety, asthma, bronchitis, CHF, COPD, hyponatremia, pneumonia, pneumonitis, pulmonary embolism, respiratory distress, sinusitis, upper resp. infection, other Departure Time of Disposition: 23:39 Disposition: 09 ADMITTED INPATIENT Admitted to Inpatient Unit: yes, to hospitalist Admission Level of Care: PCU with Tele Impression: Primary Impression: Hemoptysis Additional Impressions: Acute bronchitis Qualified Codes: J20.9 - Acute bronchitis, unspecified Chronic renal insufficiency Qualified Codes: N18.4 - Chronic kidney disease, stage 4 (severe) Hypercalcemia Abnormal EKG Condition: Fair Discharge Instructions: Hemoptysis Referrals: NO PRIMARY CARE PROVIDER (PCP) Prescriptions Apixaban (ELIQUIS) 5 Mg Tablet 1 TAB PO Q12H for 30 Days, #60 TAB 0 Refills Prov: NUZHAT ABREU Juvencio DO 03/03/25 Amoxicillin Trihydrate (Amoxicillin) 500 Mg Capsule 2 CAP PO Q12H for 10 Days, #40 CAP Prov: NUZHAT ABREU DO 03/03/25 Education Educated: Patient Educated regarding: diagnosis, treatment, prognosis Critical Care Note Total Time (mins): 30 Critical Care Note The very real possibility of a deterioration of this patient's condition requ ired the highest level of my preparedness for sudden, emergent intervention. I provided critical care services, which included medication orders, frequent reevaluations of the patient's condition and response to treatment, ordering and reviewing test results, and discussing the case with various consultants. Excludes time spent performing separately billable procedures. The critical care time associated with the care of the patient was. 30 minutes Signature Scribe Signature: Scribed for Pedro Peng MD by Jumana Rios . 02/27/25 22:59 Attestation: The note accurately reflects work and decisions made by me.Pedro Peng MD 02/27/25 22:43 PEDRO PENG MD Feb 27, 2025 22:44 JUMANA LUIS Feb 27, 2025 22:59
[2025-02-27] MEDS ORDERED: AZIT-164 PO (22:59)
[2025-02-27] MEDS: CefTRIAXone 2gm/D5W 50ml BAG 50 ML IV ONE (23:59)
[2025-02-28] VITALS (10 sets, daily range): BP systolic 122–158; BP diastolic 75–96; PULSE 83–103; RESP 14–20; TEMP 96.9–97.7; O2SAT 92–98
[2025-02-28] MEDS ORDERED: magnesium sulf-water 2g/50mL 50 ML IV PRN (00:20)
[2025-02-28] MEDS ORDERED: HYDROcodone/acetaminophen 5mg/325mg tablet PO PRN (00:20)
[2025-02-28] MEDS ORDERED: potassium Cl 20 mEq SR tablet PO PRN ×2 (00:20)
[2025-02-28] MEDS ORDERED: ondansetron/PF 4mg/2ml inj IV PRN (00:20)
[2025-02-28] MEDS ORDERED: mag hydrox/Alum hydrox/simeth 30ml oral suspension PO PRN (00:20)
[2025-02-28] MEDS ORDERED: potassium Cl 40MEQ/1/2NS 520ml 520 ML IV PRN (00:20)
[2025-02-28] MEDS ORDERED: HYDROcodone/acetaminophen 10/325mg tab PO PRN (00:20)
[2025-02-28] MEDS ORDERED: magnesium sulf-water 4G/100mL 100 ML IV PRN (00:20)
[2025-02-28] MEDS ORDERED: magnesium Cl slow-release 64mg tablet PO PRN (00:20)
[2025-02-28] MEDS ORDERED: albuterol 2.5 MG/3 ML nebule NEB PRN (00:35)
[2025-02-28] MEDS ORDERED: FURO40TA4 PO (00:38)
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
[2025-02-28] MEDS: normal saline 1000ml 1,000 ML IV SCH (00:54)
[2025-02-28 02:23] LABS: LEUKOCYTE ESTERASE ,URINE NEGATIVE (Neg); NITRITES, URINE NEGATIVE (Neg); OCCULT BLOOD,URINE TRACE-INTACT (Neg)
[2025-02-28 02:25] LABS: UA COLLECTION TYPE CLN CATCH MIDSTREAM
[2025-02-28 02:29] LABS: URINE AMPHETAMINE SCREEN POSITIVE (Neg); URINE BARBITUATE SCREEN NEGATIVE (Neg); URINE BENZODIAZEPINES SCREEN NEGATIVE (Neg); URINE CANNABINOID SCREEN POSITIVE (Neg); URINE COCAINE SCREEN NEGATIVE (Neg); URINE METHADONE SCREEN NEGATIVE (Neg); URINE OPIATE SCREEN NEGATIVE (Neg); URINE PHENCYCLIDINE SCREEN NEGATIVE (Neg)
[2025-02-28 02:40] LABS: MUCUS STRANDS FEW /LPF (Neg); SQUAMOUS EPITHELIAL CELL,UR FEW /LPF (FEW)
--- NOTE | 2025-02-28 04:14 | RADIOLOGY REPORT ---
CT Chest without intravenous contrast INDICATION: hemoptysis TECHNIQUE: Multidetector spiral CT of the chest was performed from the lung apices to the upper abdom en. Axial, coronal and sagittal multiplanar reformats were performed. Radiation Dose : 1. Chest: CTDI volume is 12.42 mGy. Dose-length product is 42.01 mGy*cm The dose indicators for CT are the volume Computed Tomography (CT) Dose Index (CTDIvol) and the Dose Length Product (DLP), and are measured in units of mGy and mGy-cm, respectively. These indicators are not patient dose, but values generated from the CT scanner acquisition factors. The report includes radiation exposure data for exposures received during this examination. Comparison: CT CT CHEST on DOS: 05/01/24, CT CHEST on DOS: 02/24/22, CTA CHEST on DOS: 10/14/21 Findings: Lower neck: Normal thyroid. Lungs: Diffuse changes related to chronic obstructive pulmonary disease with paraseptal emphysema and moderate bilateral central bronchiectasis. 9.5 x 6.3 cm septated bulla within the left lung base wit h mild emphysematous bullous change at the posterior right lung base as well. adjacent atelectasis an d scarring. Heart/Vascular Structures: Normal heart size. No pericardial effusion. The ascending thoracic aorta i s dilated, measuring 4.2 cm. Atherosclerotic vascular calcifications. Lymph Nodes: No adenopathy Musculoskeletal: No acute osseous abnormality. Soft tissues: Normal. Upper abdomen: Limited portions of the upper abdomen are unremarkable. IMPRESSION: 1. Bullous emphysematous disease and changes related to paraseptal emphysema and bilateral bronchiect asis. 2. Dilated ascending thoracic aorta. 3. Atherosclerotic vascular disease. Radiation optimization: All CT scans at this facility use at least one of these dose optimization gerhard hniques: automated exposure control mA and/or kV adjustment per patient size (includes targeted exam s where dose is matched to clinical indication) or iterative reconstruction.
[2025-02-28] MEDS: K and/or MAG REPLACEMENT MC SCH (08:00)
[2025-02-28] MEDS: levoTHYROXINE 75mcg tablet PO SCH (08:14)
[2025-02-28] MEDS: azithromycin/NS 500mg/250ml 250 ML IV SCH (08:15)
[2025-02-28] MEDS: CefTRIAXone/D5W-Rocephin 1gm 50 ML IV SCH (08:16)
[2025-02-28 11:13] LABS: MEAN PLATELET VOLUME 7.8 FL (7.4-10.4); RED CELL DISTRIBUTION WIDTH 20.5 % (11.5-14.5)
[2025-02-28 11:25] LABS: CREATININE 4.09 MG/DL (0.60-1.10); TOTAL CARBON DIOXIDE 26.7 MMOL/L (24-32); eCRCL 18 ML/MIN; eGFR 15 ML/MIN
[2025-02-28 11:27] LABS: PLATELET ESTIMATE NORMAL
[2025-02-28 11:28] LABS: ELLIPTOCYTES 1+
--- NOTE | 2025-02-28 12:18 | ELECTROCARDIOGRAPH REPORT ---
[facility] Test Date: 2025-02-28 Test Time: 11:53:58 Pat Name: PAMELA MANCERA Department: [facility] 3S Room: [facility] [address] Gender: M Supervisor [employer]: KATHERINE : 1965 Requested By: LIZA GUPTA Order Number: [id number] Reading MD: Dr. JAQUI Houser Measurements Intervals [place] Rate: 98 P: -31 MA: 127 QRS: -56 QRSD: 167 T: 134 QT: 427 QTc: 546 Interpretive Statements Atrial flutter Left bundle branch block Electronically Signed On 02-28-2025 12:23:[address] JAQUI Houser Please click the below link to view image of tracing.
[2025-02-28] MEDS: VANCOMYCIN/WATER FOR INJ (PEG) 1.5GM/300 ML IVPB IV ONE (13:59)
[2025-02-28] MEDS: budesonide 0.5mg/2ml UD nebule IH SCH (20:00)
[2025-02-28] MEDS ORDERED: vancomycin inj. 750 MG in normal saline 250ml IV soln 250 ML IV SCH (20:00)
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
[2025-03-01] VITALS (12 sets, daily range): BP systolic 126–150; BP diastolic 71–95; PULSE 91–111; RESP 14–20; TEMP 96.8–101.1; O2SAT 93–98
[2025-03-01] MEDS: VANCOMYCIN LEVEL IV SCH (03:00)
[2025-03-01 07:41] LABS: MEAN PLATELET VOLUME 8.6 FL (7.4-10.4); RED CELL DISTRIBUTION WIDTH 20.6 % (11.5-14.5)
[2025-03-01 07:51] LABS: INR 1.1 INR
[2025-03-01] MEDS ORDERED: vancomycin/NS 1 GM ADD-VANTAGE 250 ML X 1 DOSE IV PRN (08:00)
[2025-03-01] MEDS ORDERED: levoTHYROXINE 75mcg tablet PO SCH (08:00)
[2025-03-01 08:12] LABS: CREATININE 3.32 MG/DL (0.60-1.10); PHOSPHORUS 4.0 MG/DL (2.3-4.5); TOTAL CARBON DIOXIDE 23.8 MMOL/L (24-32); eCRCL 22 ML/MIN; eGFR 19 ML/MIN
[2025-03-01] MEDS: albuterol 2.5 MG/3 ML nebule NEB SCH (08:17)
[2025-03-01] MEDS: folic acid/vitamin B complex w/vitamin C 0.8mg tablet PO SCH (08:53)
[2025-03-01] MEDS: aspirin 81mg, enteric-coated 1 TAB TABLET.DR PO SCH (08:55)
[2025-03-01] MEDS: ESCITALOPRAM 10 mg tablet 10 MG TABLET PO SCH (08:55)
--- NOTE | 2025-03-01 14:40 | CARDIOLOGY REPORT ---
APPROVED REPORT EXAM: Comprehensive 2D, Doppler, and color-flow Echocardiogram. Patient Location: [address] Blood Pressure: 144/91 mmHg Heart Rate: 100 bpm Rhythm: Sinus Indications Congestive Heart Failure Acute Bronchitus Hx of Atrial Fibrillation (Eloquis) Hypertension Presented to ER with Atrial Flutter, 2:1 AV Block Elevated ProBNP (2023) CKD IV [employer] Planner: Tony Lee MD Previous echo: 09/25/2024 [facility] EF: 20-25%, mod to severe AI, mild to mod MR, mod TR 2D Dimensions RVDd 3.3 cm LA Diam4.0 cm RA Minor4.2 cmLVOT Diameter 2.05 (1.8-2.4cm) CO 4.9 L/min M-Mode Dimensions IVSd 1.31 (0.7-1.1cm) LVDd 6.30 (4.0-5.6cm) Aortic Root 3.85 (2.2-3.7cm) PWd 1.38 (0.7-1.1cm) Aortic Cusp Exc 2.14 (1.5-2.0cm) IVSs 1.41 cm MV EPSS 0.9 (<0.5cm) LVDs 5.58 (2.0-3.8cm) FS (%) 11 % PWs 1.58 cm ESV(Teich) 152.2 ml LVEF(%) 24 (>50%) Aortic Valve AoV Peak Ricardo. 163.4 cm/s AoV VTI 24.5 cm AO Peak GR. 10.7 mmHg AO Mean GR. 6 mmHg LVOT VTI 15.09 cm LVOT Peak Ricardo. 105.0 cm/s ЕКАТЕРИНА(VTI)/BSA 2.04 cm2/m2 ЕКАТЕРИНА (VTI) 2.04 cm2 AI P 1/2 Time 272 ms Mitral Valve MV E Velocity 88.0 cm/s MV Peak Gr. 3 mmHg MV PHT 72 ms MVA (PHT) 3.06 cm2 MV VMax85.9 cm/s Tricuspid Valve TR P. Velocity 228 cm/s RAP ESTIMATE 10 mmHg TR Peak Gr. 21 mmHg RVSP 31 mmHg LEFT VENTRICLE The LV is dilated in size with severely reduced function. Global hypokinesis of the LV is present. Mi ld concentric hypertrophy. Overall LVEF is 25-30%. RIGHT VENTRICLE Right ventricle is mildly dilated with mildly reduced function. Estimated PA systolic pressure is 31 mmHg. ATRIA Left atrium appears to be mildly dilated. Right atrium is mildly dilated. AORTIC VALVE Trileaflet AV appears sclerotic without stenosis. Moderate to severe insufficiency. MITRAL VALVE Mild MV annular thickening without stenosis. Mild regurgitation. TRICUSPID VALVE TV appears structurally normal with mild regurgitation. PULMONIC VALVE Grossly normal PV without stenosis, physiologic insufficiency. GREAT VESSELS Aortic root is dilated and measures at 3.85 cm. . IVC is not well visualized. PERICARDIUM Normal pericardium. No pericardial effusion seen. Other Information Study Quality: Fair
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
[2025-03-01] MEDS: methylPREDNISolone sod succ/PF 40mg inj. IV SCH (19:39)
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
[2025-03-02] VITALS (13 sets, daily range): BP systolic 135–164; BP diastolic 84–109; PULSE 100–108; RESP 15–20; TEMP 97.2–98.8; O2SAT 93–99
[2025-03-02 03:44] LABS: MEAN PLATELET VOLUME 7.9 FL (7.4-10.4); RED CELL DISTRIBUTION WIDTH 20.8 % (11.5-14.5)
[2025-03-02 03:56] LABS: CREATININE 3.17 MG/DL (0.60-1.10); PHOSPHORUS 3.2 MG/DL (2.3-4.5); TOTAL CARBON DIOXIDE 24.0 MMOL/L (24-32); eCRCL 23 ML/MIN; eGFR 20 ML/MIN
[2025-03-02] MEDS: vancomycin/NS 1 GM ADD-VANTAGE 250 ML X 1 DOSE IV ONE (06:14)
[2025-03-02] MEDS: ipratropium/albuterol 3ml nebule NEB PRN (09:01)
[2025-03-02] MEDS: ceFAZolin/D5W- 1GM premix 50 ML IV SCH (09:15)
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
--- NOTE | 2025-03-02 16:59 | CONSULTATION REPORT ---
Consult Consult Consultation Reason for Consult: GAS septicemia Consulting Provider: Dr. Wyman Antibiotic Days: Ancef 0 S/P Vanc, Rocephin, Azithro Lines: PIV Micro: 02/27 Blood- GAS Blood- ngtd HPI: Patient is a 59 year old male with past medical history of throat cancer (s/p chemo, XRT) who presented to [facility] on 02/27 with hemoptysis. On admission, he was noted to have leukocytosis which prompted admission with broad spectrum antibiotics for CAP. This was deescalated today to targeted therapy for GAS which grew in his bloodstream. He is on steroids, but ID is asked to consult because his WBC count has been trending upwards. On today's exam, patient reports feeling great and wanting go go home. He has no obvious skin portal of entry and denies any wounds/rashes. Past Medical/Surgical History: Hypertension, AFib, COPD, CHF, Hypothyroid, Hernia repair Current Medications Medications (Trade) Dose Ordered Sig/Yariel Route PRN Reason Start Time Stop Time Status Last Admin Dose Admin Azithromycin (Zithromax tablet) 500 mg ONCE ONCE PO 02/27/25 22:55 02/27/25 23:04 DC 02/27/25 23:59 500 MG Dexamethasone (Decadron tablet) 12 mg ONCE ONCE PO 02/27/25 23:00 02/27/25 23:01 DC 02/27/25 23:59 12 MG Ceftriaxone Sodium/Dextrose 50 ml @ 100 mls/hr ONCE ONCE IV 02/27/25 23:00 02/27/25 23:29 DC 02/27/25 23:59 100 MLS/HR Sodium Chloride 1,000 ml @ 100 mls/hr Q10H IV 02/28/25 00:20 02/28/25 08:00 DC 02/28/25 02:00 100 MLS/HR Ceftriaxone Sodium 50 ml @ 100 mls/hr DAILY IV 02/28/25 08:00 03/02/25 08:33 DC 03/02/25 08:10 100 MLS/HR Azithromycin 250 ml @ 250 mls/hr DAILY IV 02/28/25 08:00 03/02/25 08:00 DC 03/02/25 10:51 250 MLS/HR Methylprednisolone Sodium Succinate (SoluMEDROL 125mg inj) 20 mg BID IV 02/28/25 08:00 03/01/25 18:44 DC 03/01/25 08:55 20 MG Amiodarone HCl (Cordarone tablet) 200 mg DAILY PO 02/28/25 08:00 03/02/25 08:11 200 MG Metoprolol Tartrate (Lopressor tablet) 50 mg BID PO 02/28/25 08:00 03/02/25 08:10 50 MG Albuterol/ Ipratropium (ipratrop/ albuterol 0.5-3(2.5) MG/3ml nebule) 3 ml Q4H PRN NEB SOB or wheezing 02/28/25 00:35 03/02/25 09:01 3 ML Levothyroxine Sodium (Synthroid tablet) 150 mcg DAILY@07 PO 02/28/25 07:00 03/02/25 08:11 150 MCG Vancomycin HCl (Vancomycin Pharmacy To Dose) 1 unit ONCE ONCE IV 02/28/25 12:15 02/28/25 12:17 DC 02/28/25 12:15 1 UNIT Vancomycin HCl 300 ml @ 150 mls/hr ONCE ONCE IV 02/28/25 12:20 02/28/25 14:19 DC 02/28/25 13:59 150 MLS/HR Aspirin (Ecotrin tablet) 1 tab DAILY PO 03/01/25 08:00 03/02/25 08:10 1 TAB Atorvastatin Calcium (Lipitor tablet) 80 mg DAILY PO 03/01/25 08:00 03/02/25 08:11 80 MG Escitalopram Oxalate (Lexapro 10mg tablet) 20 mg DAILY PO 03/01/25 08:00 03/02/25 08:11 20 MG Budesonide (Pulmicort nebule) 0.5 mg Q12H IH 02/28/25 08:00 03/02/25 09:00 0.5 MG Multivit/Ca Carb/ B Cmplx/FA/Prenat (Nephro-Alanna Tablet) 1 tab DAILY PO 03/01/25 08:00 03/02/25 08:11 1 TAB Albuterol (Proventil 2.5 MG/3ML nebule) 2.5 mg Q6H NEB 03/01/25 08:00 03/01/25 20:06 2.5 MG Methylprednisolone Sodium Succinate (Solu-Medrol 40mg inj.) 20 mg BID IV 03/01/25 18:44 03/02/25 08:11 20 MG Vancomycin HCl 250 ml @ 166 mls/hr ONCE ONCE IV 03/02/25 06:00 03/02/25 07:30 DC 03/02/25 06:14 166 MLS/HR Cefazolin Sodium/ Dextrose 50 ml @ 100 mls/hr Q12H IV 03/02/25 08:30 03/02/25 09:15 100 MLS/HR Social History: Remote tobacco. Lives with his Family History: Noncontributory ROS: As in HPI, otherwise negative Objective: Vitals: Afebrile, 105, 15, 157/101, 99% on RA General: A&Ox3, NAD HEENT: NC/AT, normal conjunctiva, no oral lesions visualized CV: Regular Resp: Clear anteriorly Abd: Soft, nontender, nondistended Ext: L BKA Skin: No rashes, wounds Lines: PIV ok Laboratory Tests 03/02/25 03:22 03/02/25 03:23 02/28 CT Chest 1. Bullous emphysematous disease and changes related to paraseptal emphysema and bilateral bronchiectasis. 2. Dilated ascending thoracic aorta. 3. Atherosclerotic vascular disease. Assessment: // GAS septicemia. He has no obvious skin portal of entry but did have XRT to his throat so perhaps a mucous membrane portal of entry during his hemoptysis episode // Leukocytosis, afebrile. Trending up on steroid taper // Acute on CKD // Protein Gap // Antibiotic Allergies: none known Plan: - Continue Ancef for now though high dose PO therapy with Amox will be possible for GAS - Anticipate need for 10 day course - DC steroids - Monitor WBC count, Cr - Physical therapy - Thank you for the consult, will continue to follow BARB WATERMAN DO Mar 02, 2025 16:59
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
[2025-03-03 02:00] VITALS: BP 138/72; PULSE 82; RESP 18; TEMP 98.6; O2SAT 92
[2025-03-03 05:59] LABS: MEAN PLATELET VOLUME 8.2 FL (7.4-10.4); RED CELL DISTRIBUTION WIDTH 20.4 % (11.5-14.5)
[2025-03-03 06:36] LABS: CREATININE 2.70 MG/DL (0.60-1.10); PHOSPHORUS 2.8 MG/DL (2.3-4.5); TOTAL CARBON DIOXIDE 23.5 MMOL/L (24-32); eCRCL 27 ML/MIN; eGFR 24 ML/MIN
[2025-03-03 07:00] VITALS: BP 142/79; PULSE 74; RESP 16; TEMP 98.6; O2SAT 98
[2025-03-03 07:52] VITALS: PULSE 110; RESP 14; O2SAT 97
[2025-03-03 07:59] VITALS: PULSE 108; RESP 14
[2025-03-03 11:00] VITALS: BP 156/94; PULSE 103; RESP 17; TEMP 97.8; O2SAT 97
[2025-03-03] MEDS ORDERED: AMOX500C2 PO (11:03)
[2025-03-03] MEDS ORDERED: APIX5TAB3 PO (11:44)
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
== END 2025-03-03 13:15 | disposition home or self-care (01) | DRG 720 ==
LOC: ER 17:44 → ED HOLD 23:55 → PCU 3S 02-28 01:35
PROVIDERS: ADMIT Internal Medicine; ATTEND Family Medicine
DX: A41.9 Sepsis, unspecified organism (principal); N17.9 Acute kidney failure, unspecified; I13.0 Hypertensive heart and chronic kidney disease with heart failure and stage 1 through stage 4 chronic kidney disease, or unspecified chronic kidney disease; J18.9 Pneumonia, unspecified organism; N18.4 Chronic kidney disease, stage 4 (severe); I50.22 Chronic systolic (congestive) heart failure; I48.21 Permanent atrial fibrillation; J44.0 Chronic obstructive pulmonary disease with (acute) lower respiratory infection; E03.9 Hypothyroidism, unspecified; E78.00 Pure hypercholesterolemia, unspecified; E83.52 Hypercalcemia; F15.10 Other stimulant abuse, uncomplicated; J20.9 Acute bronchitis, unspecified; R04.2 Hemoptysis; Z88.8 Allergy status to other drugs, medicaments and biological substances; Z87.891 Personal history of nicotine dependence; Z89.512 Acquired absence of left leg below knee; Z79.01 Long term (current) use of anticoagulants; Z79.899 Other long term (current) drug therapy
CPT/HCPCS: 36415; 71046; 71250; 80048; 80053; 80076; 80202; 80305; 81001; 83036; 83605; 83735; 83880; 84100; 84132; 84145; 84155; 84165; 84439; 84443; 84484; 85008; 85025; 85610; 87040; 87077; 87081; 87186; 93005; 93306; 94640; 94760; 97116; 97161; 99285; G0378; J0456; J0690; J0696; J2919; J3373; J3375; J7030; J7040